=== PATIENT | male | born 1950 | race Caucasian/White ===

== ENCOUNTER → 2016-11-12 | Outpatient (CLI) | payer MEDICARE ==
[~2016-11-12] MED LIST: ALBU2.5V4 IH; AMBIEN; ASP81TEC PO; AZIT500T2 PO; BENZ-13 PO; CLOP75TA PO; CLOP75TA28; CYCL5TAB PO; DABI150C2 PO; DLT240CCR PO; DOXY100C2 PO; NEBU1KIT3 MC; OMEP20CA12 PO; ONDA8TAB13 PO; PRD20T PO; PRV20T PO; QUIN40TA17 PO; TRAM-21 PO
--- NOTE | 2016-11-12 19:40 | Diagnostic Imaging Report ---
Three views of the left foot. INDICATION: Left foot pain. FINDINGS: There is no fracture, dislocation or radiopaque foreign body seen. There is flattening of the plantar arch. Bone alignment is satisfactory. Mild dorsal spurring at the talar head is noted. IMPRESSION: There is mild flattening of the plantar arch. No acute process. Dictated by: Dictated on workstation # [id number]
== END ==
LOC: RAD 14:51
PROVIDERS: ATTEND Nurse Practitioner
DX: M79.672 Pain in left foot (principal)
CPT/HCPCS: 73630

== ENCOUNTER → 2016-11-13 | Outpatient (CLI) | payer MEDICARE ==
--- NOTE | 2016-11-13 18:51 | Diagnostic Imaging Report ---
PROCEDURE: US Bilateral lower extremity arterial. TECHNIQUE: Multiple real-time grayscale images are obtained through both lower extremity arterial systems with color Doppler imaging and color Doppler spectral analysis. INDICATION: Leg pain. FINDINGS: The previous bilateral lower extremity arterial Doppler exam of 10/05/2015 noted a vphehmq-bp-lkvnwua bypass graft from right to left. There did appear to be high-grade stenosis in the distal superficial femoral artery on the left. On this exam, the distal superficial femoral artery is occluded. There is some blood flow to the left lower leg via collaterals however the arterial blood flow to left lower leg is severely diminished. There is arterial blood flow on the right. The blood flow on the right is diminished as monophasic waveforms are seen throughout the arterial system. However, there is no abrupt alteration of the velocities to suggest hemodynamically significant stenosis. IMPRESSION: 1. There is occlusion of the distal superficial femoral artery on the left. While there is some collateral blood flow to the left lower leg, the arterial blood flow to the left lower extremity is extremely diminished. 2. There is also diminished arterial blood flow to the right lower extremity but there is no sign of a hemodynamically significant stenosis on the right. Dictated by: Dictated on workstation # [id number]
== END ==
LOC: RAD 14:49
PROVIDERS: ATTEND Nurse Practitioner
DX: I70.213 Atherosclerosis of native arteries of extremities with intermittent claudication, bilateral legs (principal)
CPT/HCPCS: 93925

== ENCOUNTER → 2016-12-01 | Outpatient (CLI) | payer MEDICARE ==
[2016-12-01 11:18] LABS: MEAN PLATELET VOLUME 9.7 FL (7.4-10.4); RED BLOOD COUNT 4.45 10^6/uL (4.35-5.85); RED CELL DISTRIBUTION WIDTH 18.5 % (10.0-14.5); WHITE BLOOD COUNT 9.1 10^3/uL (4.3-11.0)
[2016-12-01 11:24] LABS: KETONES,URINE 1+ (NEGATIVE); LEUKOCYTE ESTERASE ,URINE 1+ (NEGATIVE); NITRITE,URINE NEGATIVE (NEGATIVE); PH,URINE 6 (5-9); PROTEIN,URINE 2+ (NEGATIVE); UROBILINOGEN,URINE 4 MG/DL (NORMAL)
[2016-12-01 11:37] LABS: ALANINE AMINOTRANSFERASE 16 U/L (0-55); ALBUMIN 3.7 G/DL (3.2-4.5); ANION GAP 11 MMOL/L (5-14); ASPARTATE AMINO TRANSFERASE 21 U/L (5-34); BILIRUBIN,TOTAL 0.6 MG/DL (0.1-1.0); BLOOD UREA NITROGEN 21 MG/DL (7-18); BUN/CREATININE RATIO 23; CALCIUM 8.9 MG/DL (8.5-10.1); CARBON DIOXIDE 23 MMOL/L (21-32); CHLORIDE 103 MMOL/L (98-107); CREATININE SERUM 0.92 MG/DL (0.60-1.30); GFR ESTIMATED > 60; GLUCOSE 103 MG/DL (70-105); POTASSIUM 4.5 MMOL/L (3.6-5.0); SODIUM 137 MMOL/L (135-145); TOTAL PROTEIN 6.8 G/DL (6.4-8.2)
[2016-12-01 11:42] LABS: BILIRUBIN,URINE 1+ (NEGATIVE); WBC,URINE 0-2 /HPF
[2016-12-01 11:43] LABS: HYALINE CASTS, URINE RARE /LPF; SQUAMOUS EPITHELIAL CELL,UR RARE /HPF
--- NOTE | 2016-12-01 11:54 | Diagnostic Imaging Report ---
INDICATION: Peripheral vascular disease. Preop. Comparison with 08/18/2016. FINDINGS: Obstructive interstitial lung disease again noted with right hilar scarring. No acute infiltrates or masses have developed. The heart is not enlarged. There is no evidence of pulmonary edema. Apical bullous changes are noted in the right upper lung. IMPRESSION: Rather severe obstructive bullous emphysematous disease. No acute changes have occurred. Dictated by: Dictated on workstation # [id number]
== END ==
LOC: CARD 10:52
PROVIDERS: ATTEND Thoracic Surgery (Cardiothoracic Vascular Surgery)
DX: Z01.810 Encounter for preprocedural cardiovascular examination (principal); Z01.811 Encounter for preprocedural respiratory examination; Z01.812 Encounter for preprocedural laboratory examination; I70.213 Atherosclerosis of native arteries of extremities with intermittent claudication, bilateral legs
CPT/HCPCS: 36415; 71020; 80053; 81000; 85027; 93005

== ENCOUNTER 2016-12-10 09:22 | Outpatient (RCR) | payer MEDICARE ==
[~2016-12-10 09:22] MED LIST changes: -CLOP75TA28
[2016-12-22] MEDS ORDERED: CLOP75TA28 (08:16)
== END 2017-01-14 09:09 | disposition home or self-care (01) ==
LOC: WOUNDCARE 09:22
PROVIDERS: ATTEND Surgery
DX: L97.522 Non-pressure chronic ulcer of other part of left foot with fat layer exposed (principal); L97.422 Non-pressure chronic ulcer of left heel and midfoot with fat layer exposed; I70.245 Atherosclerosis of native arteries of left leg with ulceration of other part of foot; I70.244 Atherosclerosis of native arteries of left leg with ulceration of heel and midfoot; G60.8 Other hereditary and idiopathic neuropathies
CPT/HCPCS: 99215

== ENCOUNTER 2016-12-22 07:45 | Emergency (ER) | payer MEDICARE ==
[~2016-12-22] VITALS: Ht 177.8 cm; Wt 60.8 kg
[2016-12-22 08:05] LABS: BASOPHILS % (AUTO) 0 % (0-10); EOSINOPHILS # (AUTO) 0.2 10^3/uL (0.0-0.3); EOSINOPHILS % (AUTO) 2 % (0-10); LYMPHOCYTES # (AUTO) 1.1 X 10^3 (1.0-4.0); LYMPHOCYTES % (AUTO) 11 % (12-44); MEAN CORPUSCULAR HEMOGLOBIN 25 PG (25-34); MEAN CORPUSCULAR HGB CONC 31 G/DL (32-36); MEAN CORPUSCULAR VOLUME 79 FL (80-99); MEAN PLATELET VOLUME 9.4 FL (7.4-10.4); MONOCYTES % (AUTO) 10 % (0-12); NEUTROPHILS # (AUTO) 7.5 X 10^3 (1.8-7.8); NEUTROPHILS % (AUTO) 77 % (42-75); PLATELET COUNT 325 10^3/uL (130-400); RED BLOOD COUNT 3.59 10^6/uL (4.35-5.85); RED CELL DISTRIBUTION WIDTH 18.9 % (10.0-14.5); WHITE BLOOD COUNT 9.8 10^3/uL (4.3-11.0)
--- NOTE | 2016-12-22 08:05 | ED General ---
General Stated Complaint: POST CATH BLEEDING Source of Information: Patient Exam Limitations: No Limitations History of Present Illness Time Seen by Provider: 07:48 Initial Comments Here with report of bleeding from his heart catheter site which apparently was catheter site to resolve blood clots to the left lower extremity. He has gangrene to the fourth and fifth toe related to blood clots in the left leg and they were trying to clear that. That was done last week on and Thursday. He apparently has a bypass in place between the legs as well. He has a central catheter site in the area of the suprapubic region that apparently bled quite a bit today. EMS reports up to 2 L of volume loss as estimated by the amount of blood in his bed and chair as well as on the floor. Bleeding controlled with direct pressure and remains controlled currently. Patient is pale but otherwise denies any complaints. He apparently was discharged from the hospital Thursday at [facility] due to his requested which reportedly was related to he was tired of being stuck so much. He is currently considering surgery to remove the fourth and fifth toes of the left foot as well as wound debridement now that his arterial flow is open to the left lower extremity. Denies fevers or vomiting. He did not have any problems until today related to the catheter procedure. Timing/Duration: 1 Hour, Resolved Prior to Arrival Severity: Moderate, Severe Associated Systoms: No Chest Pain, No Fever/Chills, No Nausea/Vomiting, No Shortness of Air, No Weakness Allergies and Home Medications Allergies Coded Allergies: No Known Drug Allergies (Unverified , 11/22/12) Home Medications Albuterol Sulfate 2.5 Mg/3 Ml Vial.neb, 2.5 MG IH Q4H PRN for SHORTNESS OF BREATH, #28 Ref 0 Prescribed by: AMBER NEGRO on 08/18/16 1239 Aspirin 81 Mg Tabec, 81 MG PO DAILY, (Reported) Benzonatate 100 Mg Capsule, 1-2 CAP PO Q8H PRN for COUGH, #30 Ref 1 Prescribed by: AMBER NEGRO on 08/18/16 1252 Clopidogrel Bisulfate 75 Mg Tablet, #30 (Reported) Dabigatran Etexilate Mesylate 150 Mg Capsule, 150 MG PO BID, (Reported) Diltiazem Hcl 240 Mg Cap.sr.24h, 240 MG PO DAILY, (Reported) Omeprazole 20 Mg Capsule.dr, 20 MG PO DAILY, (Reported) Ondansetron 8 Mg Tab.rapdis, 8 MG PO Q6H PRN for NAUSEA, #10 Ref 0 Prescribed by: AMBER NEGRO on 08/18/16 1252 Prednisone 20 Mg Tab, 40 MG PO DAILY, #10 Ref 0 Prescribed by: AMBER NEGRO on 08/18/16 1239 [Ambien] , (Reported) Constitutional: see HPI, No chills, No fever Respiratory: no symptoms reported Cardiovascular: no symptoms reported Gastrointestinal: No abdominal pain, No nausea, No vomiting Genitourinary: no symptoms reported Musculoskeletal: no symptoms reported Skin: see HPI, other (postop wound suprapubic region with bleeding controlled.) Psychiatric/Neurological: No Symptoms Reported Hematologic/Lymphatic: No Symptoms Reported All Other Systems Reviewed Negative Unless Noted: Yes Past Kwojnur-Vyuxed-Yubnlc Hx Patient Social History Alcohol Use: Occasionally Uses Recreational Drug Use: No Smoking Status: Current Everyday Smoker Type Used: Cigarettes Recent Hopitalizations: No Immunizations Up To Date Tetanus Booster (TDap): More than 5yrs Date of Pneumonia Vaccine: Jul 18, 2016 Surgeries HX Surgeries: Yes (LEFT CAROTID 2000/STENTS TO L LEG) Surgeries: Appendectomy, Gallbladder Respiratory Hx Respiratory Disorders: Yes (HX PNEUMONIA) Respiratory Disorders: Pneumonia, COPD Cardiovascular Hx Cardiac Disorders: Yes (LEFT CAROTID STENTING IN 1999) Neurological Hx Neurological Disorders: Yes Neurological Disorders: Stroke Reproductive System Hx Reproductive Disorders: No Genitourinary Hx Genitourinary Disorders: No Gastrointestinal Hx Gastrointestinal Disorders: Yes Gastrointestinal Disorders: Hiatal Hernia, Ulcer Musculoskeletal Hx Musculoskeletal Disorders: Yes Musculoskeletal Disorders: Fractures Endocrine Hx Endocrine Disorders: No HEENT HX ENT Disorders: Yes (rt facial drooping and slurred speech from previous CVA) Loss of Vision: Denies Hearing Impairment: Denies Cancer Hx Cancer: No Psychosocial Hx Psychiatric Problems: No Integumentary HX Skin/Integumentary Disorder: No Blood Transfusions Hx Blood Disorders: No Reviewed Nursing Assessment Reviewed/Agree w Nursing PMH: Yes Family Medical History Significant Family History: No Pertinent Family Hx Physical Exam Vital Signs Vital Sign - Last 12Hours 12/22/16 07:45 Temp 98.7 Pulse 100 Resp 18 Pulse Ox 98 O2 Delivery Nasal Cannula O2 Flow Rate 2.00 Capillary Refill : General Appearance: No Apparent Distress, WD/WN HEENT: PERRL/EOMI, Pharynx Normal Neck: Non Tender, Supple Respiratory: Lungs Clear, Normal Breath Sounds Cardiovascular: Regular Rate, Rhythm, No Murmur Gastrointestinal: Non Tender, Soft Back: Normal Inspection, No CVA Tenderness, No Vertebral Tenderness Extremity: Non Tender, No Calf Tenderness Neurologic/Psychiatric: Alert, Oriented x3 Skin: Warm/Dry, Other (suprapubic puncture site were catheter procedure was done with dressing in place. No persistent bleeding noted. Left foot fourth and fifth toes black and and lateral aspect of distal forefoot blackened as well. Left foot erythematous to above the level of the ankle. Distal pulses intact in bilateral lower extremities equal.) Progress/Results/Core Measures Results/Orders Lab Results Laboratory Tests Test 12/22/16 07:56 Range/Units White Blood Count 9.8 4.3-11.0 10^3/uL Red Blood Count 3.59 L 4.35-5.85 10^6/uL Hemoglobin 8.8 L 13.3-17.7 G/DL Hematocrit 28 L 40-54 % Mean Corpuscular Volume 79 L 80-99 FL Mean Corpuscular Hemoglobin 25 25-34 PG Mean Corpuscular Hemoglobin Concent 31 L 32-36 G/DL Red Cell Distribution Width 18.9 H 10.0-14.5 % Platelet Count 325 130-400 10^3/uL Mean Platelet Volume 9.4 7.4-10.4 FL Neutrophils (%) (Auto) 77 H 42-75 % Lymphocytes (%) (Auto) 11 L 12-44 % Monocytes (%) (Auto) 10 0-12 % Eosinophils (%) (Auto) 2 0-10 % Basophils (%) (Auto) 0 0-10 % Neutrophils # (Auto) 7.5 1.8-7.8 X 10^3 Lymphocytes # (Auto) 1.1 1.0-4.0 X 10^3 Monocytes # (Auto) 1.0 0.0-1.0 X 10^3 Eosinophils # (Auto) 0.2 0.0-0.3 10^3/uL Basophils # (Auto) 0.0 0.0-0.1 10^3/uL Sodium Level 141 135-145 MMOL/L Potassium Level 3.8 3.6-5.0 MMOL/L Chloride Level 106 98-107 MMOL/L Carbon Dioxide Level 24 21-32 MMOL/L Anion Gap 11 5-14 MMOL/L Blood Urea Nitrogen 22 H 7-18 MG/DL Creatinine 0.75 0.60-1.30 MG/DL Estimat Glomerular Filtration Rate > 60 BUN/Creatinine Ratio 29 Glucose Level 107 H 70-105 MG/DL Calcium Level 8.9 8.5-10.1 MG/DL Total Bilirubin 0.5 0.1-1.0 MG/DL Aspartate Amino Transf (AST/SGOT) 48 H 5-34 U/L Alanine Aminotransferase (ALT/SGPT) 30 0-55 U/L Alkaline Phosphatase 72 40-136 U/L Total Protein 6.3 L 6.4-8.2 G/DL Albumin 3.0 L 3.2-4.5 G/DL My Orders Orders - VÍCTOR RAMON MD Cbc With Automated Diff (12/22/16 07:58) Comprehensive Metabolic Panel (12/22/16 07:58) Type And Screen (12/22/16 07:58) Vital Signs/I&O Vital Sign - Last 12Hours 12/22/16 07:45 Temp 98.7 Pulse 100 Resp 18 B/P (MAP) Pulse Ox 98 O2 Delivery Nasal Cannula O2 Flow Rate 2.00 Progress Note : Progress Note Seen and evaluated. IV by EMS. Labs ordered. Monitor patient. 0813: I did discuss the case with Dr. De Guzman at [facility] in [place], [place]. He wants the patient to return there. Patient has bypass between the legs and had recent instrumentation to clear blood clots in the left leg. There is no vascular surgery available here. Patient will need to be transferred to [place] for further evaluation of the bleeding graft. I did discuss this with the patient and family who agree. Due to significant amount of blood loss this morning and the potential for rebleeding, patient will need to go by EMS. 0910 : Report given to EMS by me. To [facility] via [facility]. Departure Impression Impression: Primary Impression: Postoperative hemorrhage from incision Additional Impression: Gangrene Disposition: XFER SHT-TRM HOSP Condition: Stable Transfer Transfer Time: 08:20 Transfer Facility: [place], [place]. Dr. De Guzman accepting Method of Transfer: EMS Departure-Patient Inst. Referrals: [facility] (PCP/Family) Primary Care Physician VÍCTOR RAMON MD Dec 22, 2016 08:05
[2016-12-22] MEDS ORDERED: CLOP75TA28 (08:16)
[2016-12-22 08:24] LABS: ALANINE AMINOTRANSFERASE 30 U/L (0-55); ANION GAP 11 MMOL/L (5-14); ASPARTATE AMINO TRANSFERASE 48 U/L (5-34); BILIRUBIN,TOTAL 0.5 MG/DL (0.1-1.0); BLOOD UREA NITROGEN 22 MG/DL (7-18); BUN/CREATININE RATIO 29; CALCIUM 8.9 MG/DL (8.5-10.1); CARBON DIOXIDE 24 MMOL/L (21-32); CHLORIDE 106 MMOL/L (98-107); CREATININE SERUM 0.75 MG/DL (0.60-1.30); GFR ESTIMATED > 60; GLUCOSE 107 MG/DL (70-105); POTASSIUM 3.8 MMOL/L (3.6-5.0); SODIUM 141 MMOL/L (135-145); TOTAL PROTEIN 6.3 G/DL (6.4-8.2)
[2016-12-22 09:20] VITALS: BP 145/91
== END 2016-12-22 09:30 | disposition short-term general hospital (02) ==
LOC: EDUNIT# 07:45 → ER 07:46
DX: I97.618 Postprocedural hemorrhage of a circulatory system organ or structure following other circulatory system procedure (principal); I96 Gangrene, not elsewhere classified; R44.9 Unspecified symptoms and signs involving general sensations and perceptions; I69.992 Facial weakness following unspecified cerebrovascular disease; I69.998 Other sequelae following unspecified cerebrovascular disease; F17.210 Nicotine dependence, cigarettes, uncomplicated; Z79.82 Long term (current) use of aspirin; Z79.899 Other long term (current) drug therapy; Z79.02 Long term (current) use of antithrombotics/antiplatelets; Z95.828 Presence of other vascular implants and grafts
CPT/HCPCS: 36415; 80053; 85025; 86850; 86900; 86901; 99283

== ENCOUNTER → 2017-01-23 | Outpatient (CLI) | payer MEDICARE ==
[~2017-01-23] MED LIST changes: +CLOP75TA28
[2017-01-23 15:18] LABS: MEAN PLATELET VOLUME 10.6 FL (7.4-10.4); RED BLOOD COUNT 4.83 10^6/uL (4.35-5.85); RED CELL DISTRIBUTION WIDTH 19.5 % (10.0-14.5); WHITE BLOOD COUNT 6.7 10^3/uL (4.3-11.0)
[2017-01-23 15:31] LABS: ALBUMIN 3.8 G/DL (3.2-4.5); ANION GAP 8 MMOL/L (5-14); BLOOD UREA NITROGEN 22 MG/DL (7-18); BUN/CREATININE RATIO 32; CALCIUM 9.4 MG/DL (8.5-10.1); CARBON DIOXIDE 27 MMOL/L (21-32); CHLORIDE 107 MMOL/L (98-107); CREATININE SERUM 0.69 MG/DL (0.60-1.30); GFR ESTIMATED > 60; GLUCOSE 97 MG/DL (70-105); PHOSPHORUS 3.6 MG/DL (2.3-4.7); SODIUM 142 MMOL/L (135-145); hs C REACTIVE PROTEIN 0.76 MG/DL (0.00-0.50)
== END ==
LOC: HH 14:45
PROVIDERS: ATTEND Internal Medicine
DX: M86.672 Other chronic osteomyelitis, left ankle and foot (principal); J44.9 Chronic obstructive pulmonary disease, unspecified; I10 Essential (primary) hypertension; I49.9 Cardiac arrhythmia, unspecified
CPT/HCPCS: 80069; 85027; 85652; 86141

== ENCOUNTER → 2017-01-30 | Outpatient (CLI) | payer MEDICARE ==
[2017-01-30 16:48] LABS: BASOPHILS % (AUTO) 0 % (0-10); EOSINOPHILS # (AUTO) 0.1 10^3/uL (0.0-0.3); EOSINOPHILS % (AUTO) 2 % (0-10); LYMPHOCYTES # (AUTO) 1.6 X 10^3 (1.0-4.0); LYMPHOCYTES % (AUTO) 22 % (12-44); MEAN CORPUSCULAR HEMOGLOBIN 26 PG (25-34); MEAN CORPUSCULAR HGB CONC 31 G/DL (32-36); MEAN CORPUSCULAR VOLUME 83 FL (80-99); MEAN PLATELET VOLUME 11.2 FL (7.4-10.4); MONOCYTES # (AUTO) 0.9 X 10^3 (0.0-1.0); MONOCYTES % (AUTO) 13 % (0-12); NEUTROPHILS # (AUTO) 4.6 X 10^3 (1.8-7.8); NEUTROPHILS % (AUTO) 63 % (42-75); PLATELET COUNT 220 10^3/uL (130-400); RED BLOOD COUNT 4.54 10^6/uL (4.35-5.85); RED CELL DISTRIBUTION WIDTH 19.5 % (10.0-14.5); WHITE BLOOD COUNT 7.3 10^3/uL (4.3-11.0)
[2017-01-30 17:16] LABS: ERYTHROCYTE SEDIMENTATION RATE 7 MM/HR (0-30)
[2017-01-30 17:18] LABS: ALBUMIN 3.7 G/DL (3.2-4.5); ANION GAP 7 MMOL/L (5-14); BLOOD UREA NITROGEN 22 MG/DL (7-18); BUN/CREATININE RATIO 33; CALCIUM 9.3 MG/DL (8.5-10.1); CARBON DIOXIDE 28 MMOL/L (21-32); CHLORIDE 105 MMOL/L (98-107); CREATININE SERUM 0.67 MG/DL (0.60-1.30); GFR ESTIMATED > 60; GLUCOSE 84 MG/DL (70-105); PHOSPHORUS 3.9 MG/DL (2.3-4.7); SODIUM 140 MMOL/L (135-145); hs C REACTIVE PROTEIN 0.06 MG/DL (0.00-0.50)
== END ==
LOC: HH 15:07
PROVIDERS: ATTEND Internal Medicine
DX: M86.672 Other chronic osteomyelitis, left ankle and foot (principal); J44.9 Chronic obstructive pulmonary disease, unspecified; I10 Essential (primary) hypertension; I49.9 Cardiac arrhythmia, unspecified
CPT/HCPCS: 80069; 85025; 85652; 86141

== ENCOUNTER → 2017-02-06 | Outpatient (CLI) | payer MEDICARE ==
[2017-02-06 15:33] LABS: MEAN PLATELET VOLUME 10.8 FL (7.4-10.4); RED BLOOD COUNT 4.33 10^6/uL (4.35-5.85); RED CELL DISTRIBUTION WIDTH 19.5 % (10.0-14.5); WHITE BLOOD COUNT 5.7 10^3/uL (4.3-11.0)
[2017-02-06 15:48] LABS: ALBUMIN 3.5 G/DL (3.2-4.5); ANION GAP 10 MMOL/L (5-14); BLOOD UREA NITROGEN 19 MG/DL (7-18); BUN/CREATININE RATIO 28; CALCIUM 9.1 MG/DL (8.5-10.1); CARBON DIOXIDE 26 MMOL/L (21-32); CHLORIDE 106 MMOL/L (98-107); CREATININE SERUM 0.68 MG/DL (0.60-1.30); GFR ESTIMATED > 60; GLUCOSE 81 MG/DL (70-105); PHOSPHORUS 3.4 MG/DL (2.3-4.7); POTASSIUM 3.6 MMOL/L (3.6-5.0); SODIUM 142 MMOL/L (135-145); hs C REACTIVE PROTEIN 0.65 MG/DL (0.00-0.50)
== END ==
LOC: HH 15:28
PROVIDERS: ATTEND Internal Medicine
DX: M86.672 Other chronic osteomyelitis, left ankle and foot (principal); J44.9 Chronic obstructive pulmonary disease, unspecified; I10 Essential (primary) hypertension; I49.9 Cardiac arrhythmia, unspecified
CPT/HCPCS: 80069; 85027; 85652; 86141

== ENCOUNTER 2017-04-03 09:28 | Outpatient (RCR) | payer MEDICARE | END 2017-04-13 16:00 | disposition home or self-care (01) | LOC: WOUNDCARE 09:28 | PROVIDERS: ATTEND Surgery | DX: L97.522 Non-pressure chronic ulcer of other part of left foot with fat layer exposed (principal); L97.422 Non-pressure chronic ulcer of left heel and midfoot with fat layer exposed; I70.245 Atherosclerosis of native arteries of left leg with ulceration of other part of foot; I70.244 Atherosclerosis of native arteries of left leg with ulceration of heel and midfoot | CPT/HCPCS: 11042; 11043; 87070; 87075; 87205 ==

== ENCOUNTER → 2017-04-24 | Outpatient (CLI) | payer MEDICARE | LOC: WOUNDCARE 09:24 | PROVIDERS: ATTEND Surgery | DX: L97.522 Non-pressure chronic ulcer of other part of left foot with fat layer exposed (principal); L97.422 Non-pressure chronic ulcer of left heel and midfoot with fat layer exposed; I70.244 Atherosclerosis of native arteries of left leg with ulceration of heel and midfoot; T65.222A Toxic effect of tobacco cigarettes, intentional self-harm, initial encounter | CPT/HCPCS: 11042 ==

== ENCOUNTER → 2017-05-15 | Outpatient (CLI) | payer MEDICARE | LOC: WOUNDCARE 10:28 | PROVIDERS: ATTEND Surgery | DX: L97.522 Non-pressure chronic ulcer of other part of left foot with fat layer exposed (principal); L97.422 Non-pressure chronic ulcer of left heel and midfoot with fat layer exposed; I70.244 Atherosclerosis of native arteries of left leg with ulceration of heel and midfoot; T65.222A Toxic effect of tobacco cigarettes, intentional self-harm, initial encounter | CPT/HCPCS: 11042 ==

== ENCOUNTER → 2017-05-22 | Outpatient (CLI) | payer MEDICARE ==
[~2017-05-22] MED LIST changes: +ALBU18HF2 IH; +ASPI-983 PO; +BUDE10.2 IH; +CYCL10TA9 PO; +DABI150C5 PO; +DILT240C87 PO; +DOXY100C42 PO; +GABA-488 PO; +HYDR-3816 PO; +MORP-34 PO; +ZOLP10TA5 PO
== END ==
LOC: WOUNDCARE 05-21 12:54
PROVIDERS: ATTEND Surgery
DX: L97.522 Non-pressure chronic ulcer of other part of left foot with fat layer exposed (principal); L97.422 Non-pressure chronic ulcer of left heel and midfoot with fat layer exposed; I70.244 Atherosclerosis of native arteries of left leg with ulceration of heel and midfoot; T65.222A Toxic effect of tobacco cigarettes, intentional self-harm, initial encounter
CPT/HCPCS: 11042; 87070; 87075; 87077; 87186; 87205

== ENCOUNTER → 2017-06-10 | Outpatient (CLI) | payer MEDICARE ==
--- NOTE | 2017-06-10 11:31 | Diagnostic Imaging Report ---
INDICATION: History of amputation of the fourth and fifth digits of the left foot, now with ulceration near the heel. TECHNIQUE: AP, oblique, and lateral views of the left foot were obtained. FINDINGS: The patient has had amputation of the fourth and fifth digits at the level of the distal metatarsal. There is no erosive bony lesion in this location to suggest osteomyelitis. There is no erosive bony lesion in the calcaneus. There is no other abnormal finding. IMPRESSION: Postop changes status post transmetatarsal amputation of the fourth and fifth digits. No overt bony destructive lesion is seen. Dictated by: Dictated on workstation # [id number]
== END ==
LOC: RAD 10:39
PROVIDERS: ATTEND Surgery
DX: L97.522 Non-pressure chronic ulcer of other part of left foot with fat layer exposed (principal); L97.422 Non-pressure chronic ulcer of left heel and midfoot with fat layer exposed; I70.244 Atherosclerosis of native arteries of left leg with ulceration of heel and midfoot; F17.210 Nicotine dependence, cigarettes, uncomplicated; Z89.422 Acquired absence of other left toe(s)
CPT/HCPCS: 73630

== ENCOUNTER → 2017-06-12 | Outpatient (CLI) | payer MEDICARE ==
[~2017-06-12] MED LIST changes: -ALBU18HF2 IH; -ASPI-983 PO; -BUDE10.2 IH; -CYCL10TA9 PO; -DABI150C5 PO; -DILT240C87 PO; -DOXY100C42 PO; -GABA-488 PO; -HYDR-3816 PO; -MORP-34 PO; -ZOLP10TA5 PO
== END ==
LOC: WOUNDCARE 09:57
PROVIDERS: ATTEND Surgery
DX: L97.522 Non-pressure chronic ulcer of other part of left foot with fat layer exposed (principal); L97.422 Non-pressure chronic ulcer of left heel and midfoot with fat layer exposed; I70.244 Atherosclerosis of native arteries of left leg with ulceration of heel and midfoot; T65.222A Toxic effect of tobacco cigarettes, intentional self-harm, initial encounter
CPT/HCPCS: 11042

== ENCOUNTER → 2017-06-19 | Outpatient (CLI) | payer MEDICARE ==
[2017-06-19 11:06] LABS: ANION GAP 9 MMOL/L (5-14); BLOOD UREA NITROGEN 19 MG/DL (7-18); BUN/CREATININE RATIO 22; CALCIUM 9.6 MG/DL (8.5-10.1); CARBON DIOXIDE 28 MMOL/L (21-32); CHLORIDE 101 MMOL/L (98-107); CREATININE SERUM 0.87 MG/DL (0.60-1.30); GFR ESTIMATED > 60; GLUCOSE 96 MG/DL (70-105); POTASSIUM 4.2 MMOL/L (3.6-5.0); SODIUM 138 MMOL/L (135-145)
== END ==
LOC: LAB 10:40
PROVIDERS: ATTEND Internal Medicine
DX: R91.1 Solitary pulmonary nodule (principal)
CPT/HCPCS: 36415; 80048

== ENCOUNTER → 2017-06-22 | Outpatient (CLI) | payer MEDICARE ==
[~2017-06-22] MED LIST changes: +IOHEXOL 350 MG/ML 100 ML (OMNIPAQUE 350) VIAL IV ONE; +NS 100 ML (IVPB) BAG IV ONE
--- NOTE | 2017-06-22 13:02 | Diagnostic Imaging Report ---
PROCEDURE: CT chest with and without contrast. TECHNIQUE: Multiple contiguous axial images were obtained through the chest before and after administration of intravenous contrast. INDICATION: Lung nodule. 75 mL of Omnipaque 350 is administered intravenously. FINDINGS: The lungs demonstrate emphysema changes with bulla seen in the upper lobes and in the right lung base anteriorly, and inferior lingula. There is a 5 mm nodule seen in the right lower lobe stable from 06/2015 exam compatible with scarring. Other areas of scarring in the lung bases also noted. There is no significant new consolidation, mass or suspicious nodule. There is fibrotic changes and chronic atelectasis involving the right middle lobe. This is also demonstrating minimal change from 2015. This segment demonstrates mild bronchiectasis in the segmental branches to the right middle lobe. No pleural or pericardial effusion. The heart size is normal. The thoracic aorta is normal in caliber. No significant mediastinal, hilar or axillary lymphadenopathy is seen. Sections in the upper abdomen demonstrate multiple hepatic cysts. There is hyperdense material probably related to sutures or possibly atherosclerotic calcifications in the upper abdomen. Correlate with surgical history. The osseous structures demonstrate degenerative changes in the thoracic spine. IMPRESSION: 1. Advanced emphysema with prominent bulla in the upper lobes and in the anterior right lung base. 2. Unchanged chronic atelectasis and fibrotic changes in the right middle lobe. Dictated by: Dictated on workstation # [id number]
== END ==
LOC: RAD 08:14
PROVIDERS: ATTEND Internal Medicine
DX: J43.9 Emphysema, unspecified (principal); J84.10 Pulmonary fibrosis, unspecified
CPT/HCPCS: 71270

== ENCOUNTER → 2017-06-26 | Outpatient (CLI) | payer MEDICARE ==
[~2017-06-26] MED LIST changes: -IOHEXOL 350 MG/ML 100 ML (OMNIPAQUE 350) VIAL IV ONE; -NS 100 ML (IVPB) BAG IV ONE
== END ==
LOC: WOUNDCARE 09:49
PROVIDERS: ATTEND Nurse Practitioner
DX: L97.522 Non-pressure chronic ulcer of other part of left foot with fat layer exposed (principal); L97.422 Non-pressure chronic ulcer of left heel and midfoot with fat layer exposed; I70.244 Atherosclerosis of native arteries of left leg with ulceration of heel and midfoot; T65.222A Toxic effect of tobacco cigarettes, intentional self-harm, initial encounter
CPT/HCPCS: 11042; 87070; 87075; 87077; 87186; 87205

== ENCOUNTER → 2017-07-01 | Outpatient (CLI) | payer MEDICARE | LOC: WOUNDCARE 14:22 | PROVIDERS: ATTEND Surgery | DX: I70.244 Atherosclerosis of native arteries of left leg with ulceration of heel and midfoot (principal); L97.522 Non-pressure chronic ulcer of other part of left foot with fat layer exposed; L97.422 Non-pressure chronic ulcer of left heel and midfoot with fat layer exposed; T65.222A Toxic effect of tobacco cigarettes, intentional self-harm, initial encounter | CPT/HCPCS: 11042 ==

== ENCOUNTER 2017-07-04 15:48 | Inpatient (IN) | payer MEDICARE ==
[~2017-07-04] VITALS: Ht 170.2 cm; Wt 56.2 kg
--- NOTE | 2017-07-04 15:57 | ED Lower Extremity ---
General Stated Complaint: FALL Source: patient Exam Limitations: no limitations History of Present Illness Time seen by provider: 15:55 Initial Comments To ER per EMS from home with reports of right hip pain after a fall. Patient states that he became entangled in a lamp cord on his floor which caused him to trip and fall. This occurred during the night. He summoned his adult children to come help get him up. However, pain persists and he's been unable to stand or bear any weight on this leg because of the pain. He is on Pradaxa for history of atrial fibrillation. He has COPD and wears oxygen at 3 L per nasal cannula at all times. He also is currently seeing Dr. Yu from wound care for a wound on his left heel. He denies hitting his head or any other complaints of pain. Onset: this morning Severity: moderate Pain/Injury Location: right hip Method of Injury: fell Modifying Factors: Worse With Movement Allergies and Home Medications Allergies Coded Allergies: No Known Drug Allergies (Unverified , 11/22/12) Home Medications Albuterol Sulfate 2.5 Mg/3 Ml Vial.neb, 2.5 MG IH Q4H PRN for SHORTNESS OF BREATH, #28 Ref 0 Prescribed by: AMBER NEGRO on 08/18/16 1239 Aspirin 81 Mg Tabec, 81 MG PO DAILY, (Reported) Benzonatate 100 Mg Capsule, 1-2 CAP PO Q8H PRN for COUGH, #30 Ref 1 Prescribed by: AMBER NEGRO on 08/18/16 1252 Clopidogrel Bisulfate 75 Mg Tablet, #30 (Reported) Dabigatran Etexilate Mesylate 150 Mg Capsule, 150 MG PO BID, (Reported) Diltiazem Hcl 240 Mg Cap.sr.24h, 240 MG PO DAILY, (Reported) Omeprazole 20 Mg Capsule.dr, 20 MG PO DAILY, (Reported) Ondansetron 8 Mg Tab.rapdis, 8 MG PO Q6H PRN for NAUSEA, #10 Ref 0 Prescribed by: AMBER NEGRO on 08/18/16 1252 Prednisone 20 Mg Tab, 40 MG PO DAILY, #10 Ref 0 Prescribed by: AMBER NEGRO on 08/18/16 1239 [Ambien] , (Reported) Constitutional: see HPI EENTM: see HPI Respiratory: no symptoms reported Cardiovascular: no symptoms reported Genitourinary: no symptoms reported Musculoskeletal: see HPI Skin: no symptoms reported Psychiatric/Neurological: No Symptoms Reported Past Qmcytrg-Axvgvh-Tvyabl Hx Patient Social History Alcohol Beverage of Choice: [place] Type Used: Cigarettes Recent Hopitalizations: No Immunizations Up To Date Tetanus Booster (TDap): More than 5yrs Date of Pneumonia Vaccine: Jul 18, 2016 Date of Influenza Vaccine: Jun 16, 2016 Surgeries Surgeries: Appendectomy Respiratory Respiratory Disorders: Pneumonia, COPD Neurological Neurological Disorders: Stroke Reproductive System Hx Reproductive Disorders: No Gastrointestinal Gastrointestinal Disorders: Hiatal Hernia, Ulcer Musculoskeletal Musculoskeletal Disorders: Fractures HEENT Loss of Vision: Denies Hearing Impairment: Denies Family Medical History Significant Family History: No Pertinent Family Hx Physical Exam Vital Signs Vital Sign - Last 12Hours 07/04/17 15:48 Temp 97.5 Pulse 70 Resp 16 B/P (MAP) 139/94 Pulse Ox 95 O2 Delivery Nasal Cannula Capillary Refill : General Appearance: WD/WN, no apparent distress HEENT: PERRL/EOMI, normal ENT inspection Neck: non-tender, full range of motion Cardiovascular: regular rate, rhythm, no murmur Respiratory: normal breath sounds, no respiratory distress, no accessory muscle use Gastrointestinal: normal bowel sounds, non tender, soft Hips: right hip pain, right hip soft tissue tenderness Legs: bilateral leg non-tender, bilateral leg normal inspection, bilateral leg normal range of motion Knees: bilateral knee non-tender, bilateral knee normal inspection, bilateral knee normal range of motion Ankles: bilateral ankle non-tender, bilateral ankle normal inspection, bilateral ankle normal range of motion Feet: bilateral foot non-tender, bilateral foot normal inspection, bilateral foot normal range of motion, bilateral foot other (there is a bandage in place around the left foot. There is poor blood flow to both feet. I am unable to palpate a dorsalis pedis pulse on the right but I am able to Doppler blood flow) Neurologic/Psychiatric: alert, normal mood/affect, oriented x 3 Skin: normal color, warm/dry Progress/Results/Core Measures Results/Orders Lab Results Laboratory Tests Test 07/04/17 16:00 Range/Units White Blood Count 10.4 4.3-11.0 10^3/uL Red Blood Count 4.53 4.35-5.85 10^6/uL Hemoglobin 12.6 L 13.3-17.7 G/DL Hematocrit 39 L 40-54 % Mean Corpuscular Volume 86 80-99 FL Mean Corpuscular Hemoglobin 28 25-34 PG Mean Corpuscular Hemoglobin Concent 32 32-36 G/DL Red Cell Distribution Width 15.9 H 10.0-14.5 % Platelet Count 270 130-400 10^3/uL Mean Platelet Volume 10.2 7.4-10.4 FL Neutrophils (%) (Auto) 82 H 42-75 % Lymphocytes (%) (Auto) 8 L 12-44 % Monocytes (%) (Auto) 8 0-12 % Eosinophils (%) (Auto) 1 0-10 % Basophils (%) (Auto) 0 0-10 % Neutrophils # (Auto) 8.6 H 1.8-7.8 X 10^3 Lymphocytes # (Auto) 0.9 L 1.0-4.0 X 10^3 Monocytes # (Auto) 0.9 0.0-1.0 X 10^3 Eosinophils # (Auto) 0.1 0.0-0.3 10^3/uL Basophils # (Auto) 0.0 0.0-0.1 10^3/uL Sodium Level 137 135-145 MMOL/L Potassium Level 4.2 3.6-5.0 MMOL/L Chloride Level 102 98-107 MMOL/L Carbon Dioxide Level 26 21-32 MMOL/L Anion Gap 9 5-14 MMOL/L Blood Urea Nitrogen 23 H 7-18 MG/DL Creatinine 0.72 0.60-1.30 MG/DL Estimat Glomerular Filtration Rate > 60 BUN/Creatinine Ratio 32 Glucose Level 97 70-105 MG/DL Calcium Level 9.8 8.5-10.1 MG/DL Total Bilirubin 0.7 0.1-1.0 MG/DL Aspartate Amino Transf (AST/SGOT) 29 5-34 U/L Alanine Aminotransferase (ALT/SGPT) 36 0-55 U/L Alkaline Phosphatase 118 40-136 U/L Total Protein 7.5 6.4-8.2 GM/DL Albumin 3.8 3.2-4.5 GM/DL My Orders Orders - TREV FRAZIER APRN Chest 1 View, Ap/Pa Only (07/04/17 15:54) Ekg Tracing (07/04/17 15:54) Cbc With Automated Diff (07/04/17 15:54) Comprehensive Metabolic Panel (07/04/17 15:54) Ua Culture If Indicated (07/04/17 15:54) Saline Lock/Iv-Start (07/04/17 15:54) Morphine Injection (Morphine Injection (07/04/17 16:00) Pelvis With Right Hip 2-3views (07/04/17 15:54) Medications Given in ED Current Medications Medications Dose Ordered Sig/Guillermo Route Start Time Stop Time Status Last Admin Dose Admin Morphine Sulfate 6 mg ONCE ONCE IVP 07/04/17 16:00 07/04/17 16:01 DC 07/04/17 16:05 6 MG Vital Signs/I&O Vital Sign - Last 12Hours 07/04/17 07/04/17 15:48 16:05 Temp 97.5 97.5 Pulse 70 Resp 16 B/P (MAP) 139/94 Pulse Ox 95 O2 Delivery Nasal Cannula Departure Communication (Admissions) Time/Spoke to Admitting Phy: 17:33 Communication I discussed the case with Dr. Cuellar who is on-call for orthopedic surgery. We 'll admit the patient to family medicine for surgical clearance due to his comorbidities including GERD, peripheral arterial disease, COPD, history of atrial fibrillation. Time/Spoke to Consulting Phy: 17:34 Communication/Consulting Dr. Shell agrees to admit Progress Notes 1752-patient's family is concerned because he was taken off of his Pradaxa briefly in the past for an other unrelated surgery and had a stroke shortly thereafter. They state that he had to be on a heparin drip. I did discuss this with Dr. Shell and we will start a heparin drip per the ACS protocol which is the slightly lower dose than full heparin protocol. Impression Impression: Primary Impression: Intertrochanteric fracture of right hip Disposition: ADMITTED INPATIENT Condition: Stable Admissions Decision to Admit Reason: Admit from ER (General) Decision to Admit/Date: Jul 04, 2017 Time/Decision to Admit Time: 17:34 Departure-Patient Inst. Referrals: JEWELL ALBRECHT MD (PCP/Family) Primary Care Physician TREV FRAZIER APRN Jul 04, 2017 15:57
[2017-07-04] MEDS ORDERED: morphine INJ 10 MG/ML 1ML (SYR OR VIAL) IVP ONE (16:00)
[2017-07-04 16:07] LABS: BASOPHILS % (AUTO) 0 % (0-10); EOSINOPHILS # (AUTO) 0.1 10^3/uL (0.0-0.3); EOSINOPHILS % (AUTO) 1 % (0-10); LYMPHOCYTES # (AUTO) 0.9 X 10^3 (1.0-4.0); LYMPHOCYTES % (AUTO) 8 % (12-44); MEAN CORPUSCULAR HEMOGLOBIN 28 PG (25-34); MEAN CORPUSCULAR HGB CONC 32 G/DL (32-36); MEAN CORPUSCULAR VOLUME 86 FL (80-99); MEAN PLATELET VOLUME 10.2 FL (7.4-10.4); MONOCYTES # (AUTO) 0.9 X 10^3 (0.0-1.0); MONOCYTES % (AUTO) 8 % (0-12); NEUTROPHILS # (AUTO) 8.6 X 10^3 (1.8-7.8); NEUTROPHILS % (AUTO) 82 % (42-75); PLATELET COUNT 270 10^3/uL (130-400); RED BLOOD COUNT 4.53 10^6/uL (4.35-5.85); RED CELL DISTRIBUTION WIDTH 15.9 % (10.0-14.5); WHITE BLOOD COUNT 10.4 10^3/uL (4.3-11.0)
[2017-07-04 16:34] LABS: ALANINE AMINOTRANSFERASE 36 U/L (0-55); ALBUMIN 3.8 GM/DL (3.2-4.5); ANION GAP 9 MMOL/L (5-14); ASPARTATE AMINO TRANSFERASE 29 U/L (5-34); BILIRUBIN,TOTAL 0.7 MG/DL (0.1-1.0); BLOOD UREA NITROGEN 23 MG/DL (7-18); BUN/CREATININE RATIO 32; CALCIUM 9.8 MG/DL (8.5-10.1); CARBON DIOXIDE 26 MMOL/L (21-32); CHLORIDE 102 MMOL/L (98-107); CREATININE SERUM 0.72 MG/DL (0.60-1.30); GFR ESTIMATED > 60; GLUCOSE 97 MG/DL (70-105); POTASSIUM 4.2 MMOL/L (3.6-5.0); SODIUM 137 MMOL/L (135-145); TOTAL PROTEIN 7.5 GM/DL (6.4-8.2)
--- NOTE | 2017-07-04 16:59 | Diagnostic Imaging Report ---
INDICATION: Fall. COMPARISON: 12/01/2016. EXAMINATION: Two views of the chest were obtained. FINDINGS: Heart size is normal. The pulmonary vessels appear unremarkable. There is no pneumothorax or pleural fluid suspected. Chronic COPD findings with bullous change and some coarse right perihilar scarring appear fairly similar to the prior exam. No new pulmonary parenchymal abnormality is suspected. There are subacute or old healing fractures of the lateral left seventh and eighth ribs, new from November. IMPRESSION: There are subacute healing lateral left seventh and eighth rib fractures, new from November. Chronic findings in the chest are similar to the prior study. No acute or new cardiopulmonary abnormality is suspected. Dictated by: Dictated on workstation # [id number]
--- NOTE | 2017-07-04 17:03 | Diagnostic Imaging Report ---
INDICATION: Fall. COMPARISON: None. EXAMINATION: AP view of the pelvis and two views of the right hip were obtained. FINDINGS: There is a nondisplaced intertrochanteric fracture of the proximal right femur. Alignment at the hip joints appears preserved. The left hip appears unremarkable. The sacroiliac joints appear unremarkable. Vascular calcifications are demonstrated. Long stent is seen within the right superficial femoral artery. IMPRESSION: Nondisplaced intra-articular fracture of the proximal right femur. Report was called to Dr. Mariano Holloway in the [facility] ER at 5:02 p.m., by january. Dictated by: Dictated on workstation # [id number]
[2017-07-04] MEDS ORDERED: HEParin 1000 UNIT/ML (10ML VIAL) FOR BOLUS IV ONE (17:53)
[2017-07-04] MEDS ORDERED: HEParin DRIP 25000 UNIT/500ML 500 ML IV ONE (17:53)
--- OUTSIDE RECORDS SUMMARY | 2017-07-04 18:27 | XMS REPORT ---
Author Author RICKY CHA Organization [facility] Address [address] [place] [address] Care Team Providers Care Writing Manager Name Role Phone RICKY CHA Unavailable PROBLEMS Type Condition ICD9-CM Code [id number] Code Onset Dates Condition Status SNOMED Code Problem PVD (peripheral vascular disease) I73.9 Active 397001630 Problem Chronic obstructive pulmonary disease, unspecified J44.9 Active 47813313 Problem Panlobular emphysema J43.1 Active 6087486 Problem COPD (chronic obstructive pulmonary disease) J44.9 Active 00130579 Problem Pulmonary nodule R91.1 Active 435648032 Problem 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 Active 254840851 Problem Cerebrovascular accident (CVA), unspecified I63.9 Active 757535056 Problem Neuropathy G62.9 Active 487729406 Problem Chronic multifocal osteomyelitis, unspecified ankle and foot M86.379 Active 478157146 ALLERGIES No Known Allergies SOCIAL HISTORY Never Assessed PLAN OF CARE Activity Details Follow Up prn Reason: VITAL SIGNS Height 69 in 2016-11-23 Temperature 98.6 degrees Fahrenheit 2016-11-23 Heart Rate 88 bpm 2016-11-23 Respiratory Rate 22 2016-11-23 Blood pressure systolic 132 mmHg 2016-11-23 Blood pressure diastolic 76 mmHg 2016-11-23 MEDICATIONS Medication Instructions Dosage Frequency Start Date End Date Duration Status Nebulizer - as directed 8h Jul, Active Clindamycin HCl 300 MG Orally every 8 hrs 1 capsule 8h 12 Nov, 2016Nov 10 days Active Symbicort 160-4.5 MCG/ACT Inhalation Twice a day 2 puffs 12h 14 Apr, 2015 Active Aspirin Adult Low Strength 81 MG Orally Once a day 1 tablet 24h Active Ventolin HFA 108 (90 Base) MCG/ACT Inhalation 4 times a day 2 puffs as needed 6h Sep, Active Omeprazole 20 MG Orally Once a day 1 capsule 24h 30 Active Albuterol Sulfate (2.5 MG/3ML) 0.083% Inhalation Three times a day 3 ml 8h Jul, 30 days Active Diltiazem HCl ER Coated Beads 240 MG TAKE ONE CAPSULE BY MOUTH ONCE DAILY 90 Active Ambien 10 mg Orally Once a day as needed 1 tablet at bedtime Active [place] 7.5-325 MG Orally every 6 hrs as needed 1 tablet as needed Nov, Active Benzonatate 100 MG Orally Three times a day 1 capsule as needed 8h Active Pradaxa 150 MG Orally- Please voucher Twice a day 1 capsule 12h 14 days Active Gabapentin 100 mg Orally 2 times a day as needed 1 capsule Oct, 30 days Active RESULTS Name Result Date Reference Range CULTURE, ANAEROBIC AND AEROBIC 2016-11-23 Anaerobic Culture Final report Aerobic Culture Final report Result 1 Result 1 Acinetobacter lwoffii Result 2 Mixed skin trinh Antimicrobial Susceptibility PROCEDURES Procedure Date Ordered Result Body Site LAB NOT BILLED BY [facility] November 23, 2016 FQ VISIT ESTABLISHED PATIENT November 23, 2016 IMMUNIZATIONS No Known Immunizations MEDICAL (GENERAL) HISTORY Type Description Date Medical History gastroesophageal reflux disease (GERD) Medical History chronic obstructive pulmonary disease (COPD) Medical History hypertension Medical History cardiovascular disorder-CAD Medical History stroke Medical History gangrene of left 4th and 5th toes - amputated Medical History wound debridement of left heel Surgical History cardiothoracic surgery; fem-pop x 5, last done November 2016 Surgical History 07/03/15 Dr. Larkin did surgery again on fem-pop had wound care done. Surgical History Balloon placed in right leg 02/06/2016 Surgical History amputation, toes and heel 12/2016 Hospitalization History Hospitalization for surgery only Hospitalization History VC right leg blockage 02/06/2016 Hospitalization History deep vein thrombosis 11/2016
--- OUTSIDE RECORDS SUMMARY | 2017-07-04 18:27 | XMS REPORT ---
Author Author NIGEL ERNANDEZ Organization [facility] Address [address] [place] [address] Care Team Providers Care Counter Caser Name Role Phone NIGEL ERNANDEZ Unavailable PROBLEMS Type Condition ICD9-CM Code FLU09-XT Code Onset Dates Condition Status SNOMED Code Problem PVD (peripheral vascular disease) I73.9 Active 154959088 Problem Neuropathy G62.9 Active 923237155 Problem Chronic multifocal osteomyelitis, unspecified ankle and foot M86.379 Active 088567707 Problem Chronic obstructive pulmonary disease, unspecified J44.9 Active 03388330 Problem Panlobular emphysema J43.1 Active 6142159 Problem 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
--- OUTSIDE RECORDS SUMMARY | 2017-07-04 18:28 | XMS REPORT ---
Author Author NIGEL ERNANDEZ Organization [facility] Address [address] [place] [address] Care Team Providers Care Relief Worker Name Role Phone NIGEL ERNANDEZ Unavailable PROBLEMS Type Condition ICD9-CM Code [id number]-HZ Code Onset Dates Condition Status SNOMED Code Problem PVD (peripheral vascular disease) I73.9 Active 750138843 Problem Neuropathy G62.9 Active 475199015 Problem Chronic multifocal osteomyelitis, unspecified ankle and foot M86.379 Active 783481653 Problem Chronic obstructive pulmonary disease, unspecified J44.9 Active 26612744 Problem Panlobular emphysema J43.1 Active 5404605 Problem 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
--- OUTSIDE RECORDS SUMMARY | 2017-07-04 18:28 | XMS REPORT ---
Author Author NIGEL ERNANDEZ Organization [facility] Address [address] [place] [address] Care Team Providers Care Scalloper Name Role Phone NIGEL ERNANDEZ Unavailable PROBLEMS Type Condition ICD9-CM Code LCK16-[id number] Code Onset Dates Condition Status SNOMED Code Problem PVD (peripheral vascular disease) I73.9 Active 971979130 Problem Chronic obstructive pulmonary disease, unspecified J44.9 Active 95541941 Problem Panlobular emphysema J43.1 Active 2083028 Problem COPD (chronic obstructive pulmonary disease) J44.9 Active 15173372 Problem Pulmonary nodule R91.1 Active 846268912 Problem 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
--- OUTSIDE RECORDS SUMMARY | 2017-07-04 18:30 | XMS REPORT ---
Author Author NIGEL ERNANDEZ Organization [facility] Address [address] [place] [address] Care Team Providers Care Management Lead Name Role Phone NIGEL ERNANDEZ Unavailable PROBLEMS Type Condition ICD9-CM Code GFK79-HC Code Onset Dates Condition Status SNOMED Code Problem PVD (peripheral vascular disease) I73.9 Active 543538448 Problem Neuropathy G62.9 Active 228541843 Problem Chronic multifocal osteomyelitis, unspecified ankle and foot M86.379 Active 054409408 Problem Chronic obstructive pulmonary disease, unspecified J44.9 Active 98690775 Problem Panlobular emphysema J43.1 Active 1936483 Problem 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
--- OUTSIDE RECORDS SUMMARY | 2017-07-04 18:30 | XMS REPORT ---
Author Author NIGEL ERNANDEZ [facility] Address [address] [place] [address] Care Team Providers Care Production Planning Supervisor Name Role Phone OMA NIGEL Unavailable PROBLEMS Type Condition ICD9-CM Code SLF55-AM Code Onset Dates Condition Status SNOMED Code Problem PVD (peripheral vascular disease) I73.9 Active 935088299 Problem Neuropathy G62.9 Active 527677755 Problem Chronic multifocal osteomyelitis, unspecified ankle and foot M86.379 Active 078789138 Problem Chronic obstructive pulmonary disease, unspecified J44.9 Active 74701428 Problem Panlobular emphysema J43.1 Active 9441556 Problem 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 Unknown Non Drug Allergy Sep, Unknown SOCIAL HISTORY No smoking Hx information available PLAN OF CARE VITAL SIGNS Height 69 in 2016-09-22 Weight 141.2 lbs 2016-09-22 Temperature 98.0 degrees Fahrenheit 2016-09-22 Heart Rate 85 bpm 2016-09-22 Respiratory Rate 22 2016-09-22 Oximetry 98 % 2016-09-22 BMI 20.85 kg/m2 2016-09-22 Blood pressure systolic 140 mmHg 2016-09-22 Blood pressure diastolic 80 mmHg 2016-09-22 MEDICATIONS Medication Instructions Dosage Frequency Start Date End Date Duration Status Benzonatate 100 MG Orally Three times a day 1 capsule as needed 8h Active Pradaxa 150 MG TAKE ONE CAPSULE BY MOUTH TWICE DAILY 90 Active Nebulizer - as directed 8h Jul, Active [place] 7.5-325 MG Orally every 6 hrs as needed 1 tablet as needed Sep, Active Symbicort 160-4.5 MCG/ACT Inhalation Twice a day 2 puffs 12h 14 Apr, 2015 Active Aspirin Adult Low Strength 81 MG Orally Once a day 1 tablet 24h Active Omeprazole 20 MG Orally Once a day 1 capsule 24h 30 Active Albuterol Sulfate (2.5 MG/3ML) 0.083% Inhalation Three times a day 3 ml 8h Jul, 30 days Active Ventolin HFA 108 (90 Base) MCG/ACT Inhalation 4 times a day 2 puffs as needed 6h Sep, Active Diltiazem HCl ER Coated Beads 240 MG TAKE ONE CAPSULE BY MOUTH ONCE DAILY 90 Active Ambien 10 mg Orally Once a day as needed 1 tablet at bedtime Active RESULTS No Results PROCEDURES Procedure Date Ordered Related Diagnosis Body Site MEASURE BLOOD OXYGEN LEVEL Sep 22, 2016 [facility] VISIT ESTABLISHED PATIENT Sep 22, 2016 Office Visit, Est Pt., Level 3 Sep 22, 2016 IMMUNIZATIONS No Known Immunizations
--- OUTSIDE RECORDS SUMMARY | 2017-07-04 18:30 | XMS REPORT ---
Author Author NIGEL ERNANDEZ [facility] Address [address] [place] [address] Care Team Providers Care Network Support Analyst Name Role Phone NIGEL ERNANDEZ Unavailable PROBLEMS Type Condition ICD9-CM Code IOK80-KA Code Onset Dates Condition Status SNOMED Code Problem PVD (peripheral vascular disease) I73.9 Active 810547166 Problem Neuropathy G62.9 Active 654487464 Problem Chronic multifocal osteomyelitis, unspecified ankle and foot M86.379 Active 355571064 Problem Chronic obstructive pulmonary disease, unspecified J44.9 Active 96853636 Problem Panlobular emphysema J43.1 Active 0833447 Problem 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
--- OUTSIDE RECORDS SUMMARY | 2017-07-04 18:30 | XMS REPORT ---
Author Author NIGEL ERNANDEZ Organization [facility] Address [address] [place] [address] Care Team Providers Care Fountain Jerk Name Role Phone NIGEL ERNANDEZ Unavailable PROBLEMS Type Condition ICD9-CM Code WAJ89-OG Code Onset Dates Condition Status SNOMED Code Problem PVD (peripheral vascular disease) I73.9 Active 234256775 Problem Neuropathy G62.9 Active 418153306 Problem Chronic multifocal osteomyelitis, unspecified ankle and foot M86.379 Active 761292952 Problem Chronic obstructive pulmonary disease, unspecified J44.9 Active 44734072 Problem Panlobular emphysema J43.1 Active 8249431 Problem 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
--- OUTSIDE RECORDS SUMMARY | 2017-07-04 18:30 | XMS REPORT ---
Author Author NIGEL ERNANDEZ Organization [facility] Address [address] [place] [address] Care Team Providers Care Drafter Geological Name Role Phone NIGEL ERNANDEZ Unavailable PROBLEMS Type Condition ICD9-CM Code DAC09-CI Code Onset Dates Condition Status SNOMED Code Problem Panlobular emphysema J43.1 Active 7501412 Problem Cerebrovascular accident (CVA), unspecified I63.9 Active 816737922 Problem Chronic obstructive pulmonary disease, unspecified J44.9 Active 10645238 Problem PVD (peripheral vascular disease) I73.9 Active 513134522 Problem Lung nodule seen on imaging study R91.1 Active 642844265 Problem COPD (chronic obstructive pulmonary disease) J44.9 Active 76067299 Problem Chronic multifocal osteomyelitis, unspecified ankle and foot M86.379 Active 909818294 Problem 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
--- OUTSIDE RECORDS SUMMARY | 2017-07-04 18:31 | XMS REPORT ---
Author Author NIGEL ERNANDEZ Organization [facility] Address [address] [place] [address] Care Team Providers Care Cable Installer Repairer Helper Name Role Phone NIGEL ERNANDEZ Unavailable PROBLEMS Type Condition ICD9-CM Code MDH74-ZR Code Onset Dates Condition Status SNOMED Code Problem PVD (peripheral vascular disease) I73.9 Active 412248494 Problem Neuropathy G62.9 Active 100020347 Problem Chronic multifocal osteomyelitis, unspecified ankle and foot M86.379 Active 464601385 Problem Chronic obstructive pulmonary disease, unspecified J44.9 Active 38049459 Problem Panlobular emphysema J43.1 Active 3142185 Problem 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
--- OUTSIDE RECORDS SUMMARY | 2017-07-04 18:31 | XMS REPORT ---
Author Author NIGEL ERNANDEZ Organization [facility] Address [address] [place] [address] Care Team Providers Care Director Of Optimization Name Role Phone NIGEL ERNANDEZ Unavailable PROBLEMS Type Condition ICD9-CM Code KHQ77-IH Code Onset Dates Condition Status SNOMED Code Problem PVD (peripheral vascular disease) I73.9 Active 767386639 Problem Neuropathy G62.9 Active 385034315 Problem Chronic multifocal osteomyelitis, unspecified ankle and foot M86.379 Active 973387709 Problem Chronic obstructive pulmonary disease, unspecified J44.9 Active 05982258 Problem Panlobular emphysema J43.1 Active 6493709 Problem 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
--- OUTSIDE RECORDS SUMMARY | 2017-07-04 18:31 | XMS REPORT ---
Author Author NIGEL ERNANDEZ Organization [facility] Address [address] [place] [address] Care Team Providers Care Chute Man Name Role Phone NIGEL ERNANDEZ Unavailable PROBLEMS Type Condition ICD9-CM Code XZG18-TK Code Onset Dates Condition Status SNOMED Code Problem PVD (peripheral vascular disease) I73.9 Active 157667292 Problem Neuropathy G62.9 Active 161092750 Problem Chronic multifocal osteomyelitis, unspecified ankle and foot M86.379 Active 188959310 Problem Chronic obstructive pulmonary disease, unspecified J44.9 Active 60775949 Problem Panlobular emphysema J43.1 Active 6353322 Problem 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
[2017-07-04 20:00] VITALS: BP 174/92
[2017-07-04] MEDS ORDERED: RT-ALBUTEROL/IPRATROPIUM 3 ML (DUONEB) VIAL ONE (20:10)
[2017-07-04] MEDS: NS IV 1000 ML 1,000 ML IV SCH (20:39)
[2017-07-04] MEDS ORDERED: ONDANSETRON 4 MG/2 ML (SDV) Z0FRAN IV PRN (20:45)
[2017-07-04 21:33] VITALS: BP 146/87
[2017-07-04] MEDS: RT-ALBUTEROL/IPRATROPIUM 3 ML (DUONEB) VIAL INH SCH ×2 (21:55→21:56)
[2017-07-05] VITALS: BP 135/78
[2017-07-05] MEDS: RT-ALBUTEROL/IPRATROPIUM 3 ML (DUONEB) VIAL INH SCH ×6 (02:29→22:04)
[2017-07-05 04:00] VITALS: BP 133/72
[2017-07-05] MEDS: NS IV 1000 ML 1,000 ML IV SCH ×2 (06:57→16:55)
[2017-07-05] MEDS: RT-ADVAIR HFA 115/21 MCG PER PUFF IH SCH ×2 (07:07→22:04)
[2017-07-05 07:23] VITALS: BP 157/93
[2017-07-05] MEDS ORDERED: INFLUENZA TRIvalent 2017-2018 0.5 ML/45 MCG SYR IM ONE (07:30)
[2017-07-05] MEDS ORDERED: morphine INJ 10 MG/ML 1ML (SYR OR VIAL) IVP NR (08:56)
[2017-07-05] MEDS: oxyCODONE/APAP 5/325MG (PERCOCET 5) TABLET PO PRN (09:04)
[2017-07-05] MEDS ORDERED: CYCL10TA9 PO (11:38)
[2017-07-05] MEDS ORDERED: ALBU18HF2 IH (11:38)
[2017-07-05] MEDS ORDERED: MORP-34 PO (11:38)
[2017-07-05] MEDS ORDERED: OMEP20CA12 PO (11:38)
[2017-07-05] MEDS ORDERED: ZOLP10TA5 PO (11:38)
[2017-07-05] MEDS ORDERED: GABA-488 PO (11:38)
[2017-07-05] MEDS ORDERED: DILT240C87 PO (11:38)
[2017-07-05] MEDS ORDERED: BUDE10.2 IH (11:38)
[2017-07-05] MEDS ORDERED: DOXY100C42 PO (11:38)
[2017-07-05] MEDS ORDERED: DABI150C5 PO (11:48)
[2017-07-05] MEDS ORDERED: ASPI-983 PO (11:48)
[2017-07-05] MEDS ORDERED: HYDR-3816 PO (11:48)
[2017-07-05 12:00] VITALS: BP 160/93
[2017-07-05] MEDS: HYDROcodone/APAP 7.5 MG/325 MG (LORTAB, LORCET PLUS) TABLET PO PRN (14:04)
[2017-07-05] MEDS: morphine ER 30 MG (MS CONTIN) TAB PO SCH (14:05)
[2017-07-05] MEDS: GABAPENTIN 300 MG (NEURONTIN) CAP PO SCH ×2 (14:08→20:24)
[2017-07-05 16:00] VITALS: BP 140/70
--- NOTE | 2017-07-05 19:06 | History & Physicial ([facility]) ---
HPI History of Present Illness: 67 yo M that fell on thursday and presented to ER last night with right hip pain found to have fracture. States that he tripped over a cord when he fell. Since the fall he has been having increasing difficulties breathing. He turned up his oxygen at home and has been taking his PRN breathing treatments. This AM states that his breathing is more comfortable but he is still on increased oxygen requirement from his baseline. States that his pain is well controlled. Source: patient, RN/MD Exam Limitations: no limitations Date seen by provider: Jul 05, 2017 Time Seen by Provider: 10:05 Attending Physician Sveta Shell MD PCP Artur Albrecht MD Consult Date of Admission Jul 04, 2017 at 17:36 Home Medications Home Medications Reviewed patient Home Medication Reconciliation Form Allergies Coded Allergies: No Known Drug Allergies (Unverified , 11/22/12) QVO-Hqdoeh-Mpwkfs Hx Patient Social History Living Status: Lives home alone Alcohol Use: Regular Use Recreational Drug Use: No Smoking Status: Current Everyday Smoker Type Used: Cigarettes Recent Foreign Travel: No Contact w/other who traveled: No Recent Hopitalizations: No Recent Infectious Disease Expo: No Physical Abuse Screen: No Sexual Abuse: No Immunizations Up To Date Tetanus Booster (TDap): More than 5yrs Date of Pneumonia Vaccine: Jun 14, 2016 Date of Influenza Vaccine: Jun 16, 2016 Past Medical History CAD s/p CABG PVD s/p left toe amputation COPD with home oxygen h/o CVA no residual HTN Atrial fibrillation Family Medical History Significant Family History: No Pertinent Family Hx Review of Systems ([facility]) Constitutional: no symptoms reported, No chills, No dizziness, No fever, No malaise, No weakness EENTM: no symptoms reported, No blurred vision, No vision loss Respiratory: dyspnea on exertion, short of breath Cardiovascular: no symptoms reported, No chest pain, No edema, No palpitations Gastrointestinal: no symptoms reported, No constipation, No diarrhea, No nausea , No vomiting Genitourinary: no symptoms reported, No dysuria, No frequency, No hematuria Musculoskeletal: joint pain (Right hip) Skin: rash (Right foot) Psychiatric/Neurological: No Symptoms Reported, Denies Anxiety, Denies Depressed Reviewed Test Results Reviewed Test Results Lab Laboratory Tests Test 07/04/17 16:00 07/04/17 23:00 07/05/17 04:53 Range/Units White Blood Count 10.4 4.3-11.0 10^3/uL Red Blood Count 4.53 4.35-5.85 10^6/uL Hemoglobin 12.6 L 13.3-17.7 G/DL Hematocrit 39 L 40-54 % Mean Corpuscular Volume 86 80-99 FL Mean Corpuscular Hemoglobin 28 25-34 PG Mean Corpuscular Hemoglobin Concent 32 32-36 G/DL Red Cell Distribution Width 15.9 H 10.0-14.5 % Platelet Count 270 130-400 10^3/uL Mean Platelet Volume 10.2 7.4-10.4 FL Neutrophils (%) (Auto) 82 H 42-75 % Lymphocytes (%) (Auto) 8 L 12-44 % Monocytes (%) (Auto) 8 0-12 % Eosinophils (%) (Auto) 1 0-10 % Basophils (%) (Auto) 0 0-10 % Neutrophils # (Auto) 8.6 H 1.8-7.8 X 10^3 Lymphocytes # (Auto) 0.9 L 1.0-4.0 X 10^3 Monocytes # (Auto) 0.9 0.0-1.0 X 10^3 Eosinophils # (Auto) 0.1 0.0-0.3 10^3/uL Basophils # (Auto) 0.0 0.0-0.1 10^3/uL Sodium Level 137 135-145 MMOL/L Potassium Level 4.2 3.6-5.0 MMOL/L Chloride Level 102 98-107 MMOL/L Carbon Dioxide Level 26 21-32 MMOL/L Anion Gap 9 5-14 MMOL/L Blood Urea Nitrogen 23 H 7-18 MG/DL Creatinine 0.72 0.60-1.30 MG/DL Estimat Glomerular Filtration Rate > 60 BUN/Creatinine Ratio 32 Glucose Level 97 70-105 MG/DL Calcium Level 9.8 8.5-10.1 MG/DL Total Bilirubin 0.7 0.1-1.0 MG/DL Aspartate Amino Transf (AST/SGOT) 29 5-34 U/L Alanine Aminotransferase (ALT/SGPT) 36 0-55 U/L Alkaline Phosphatase 118 40-136 U/L Total Protein 7.5 6.4-8.2 GM/DL Albumin 3.8 3.2-4.5 GM/DL Activated Partial Thromboplast Time 73 H 67 H 24-35 SEC Radiology Date of Exam: 07/04/17 PELVIS WITH RIGHT HIP 2-3VIEWS INDICATION: Fall. COMPARISON: None. EXAMINATION: AP view of the pelvis and two views of the right hip were obtained. FINDINGS: There is a nondisplaced intertrochanteric fracture of the proximal right femur. Alignment at the hip joints appears preserved. The left hip appears unremarkable. The sacroiliac joints appear unremarkable. Vascular calcifications are demonstrated. Long stent is seen within the right superficial femoral artery. IMPRESSION: Nondisplaced intra-articular fracture of the proximal right femur. Physical Exam-([facility]) Physical Exam Vital Signs VS - Last 72 Hours, by Label 07/04/17 07/04/17 07/04/17 07/04/17 15:48 16:05 19:04 20:00 Temp 97.5 97.5 97.5 99.4 Pulse 70 68 113 Resp 16 20 24 B/P (MAP) 139/94 174/92 Pulse Ox 95 95 94 O2 Delivery Nasal Cannula Nasal Cannula O2 Flow Rate 3.00 07/04/17 07/04/17 07/04/17 07/04/17 20:00 20:15 20:15 21:33 Pulse 112 B/P (MAP) 146/87 Pulse Ox 95 91 91 O2 Delivery Nasal Cannula Nasal Cannula O2 Flow Rate 3.00 3.00 07/04/17 07/04/17 07/05/17 07/05/17 21:56 22:17 00:00 02:29 Temp 97.6 Pulse 110 Resp 20 B/P (MAP) 135/78 Pulse Ox 80 94 91 97 O2 Delivery Nasal Cannula Vapotherm Vapotherm Vapotherm O2 Flow Rate 3.00 20.00 80.00 20.00 20.00 FiO2 80 80 07/05/17 07/05/17 07/05/17 07/05/17 04:00 07:09 07:23 09:00 Temp 97.4 97.8 Pulse 99 90 Resp 20 18 B/P (MAP) 133/72 157/93 Pulse Ox 93 92 94 97 O2 Delivery Vapotherm Vapotherm Vapotherm Vapotherm O2 Flow Rate 70.00 20.00 70.00 15.00 20.00 20.00 FiO2 70 07/05/17 07/05/17 07/05/17 07/05/17 10:51 12:00 14:40 16:00 Temp 99.1 100.2 Pulse 110 104 Resp 22 18 B/P (MAP) 160/93 140/70 Pulse Ox 90 91 97 92 O2 Delivery Vapotherm Vapotherm Vapotherm Vapotherm O2 Flow Rate 15.00 70.00 15.00 60.00 15.00 10.00 FiO2 70 70 07/05/17 18:31 Pulse Ox 88 O2 Delivery Vapotherm O2 Flow Rate 10.00 FiO2 60 Capillary Refill : Less Than 3 SecondsLess Than 3 Seconds General Appearance: WD/WN, no apparent distress HEENT: PERRL/EOMI Neck: non-tender, full range of motion, supple Respiratory: chest non-tender, normal breath sounds, no accessory muscle use, decreased breath sounds, No crackles, wheezing Cardiovascular: regular rate, rhythm, no edema, no murmur Gastrointestinal: normal bowel sounds, non tender, soft, no organomegaly Back: decreased range of motion (Right hip due to pain, point ttp R troch) Extremities: no pedal edema, no calf tenderness, inflammation (Right foot with erythema, marked with pin, thicken nails bilaterally, Left foot s/p 4th/5th toe amputation) Neurologic/Psychiatric: 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, no motor/sensory deficits, alert, normal mood/affect, oriented x 3 Skin: cool (bilateral feet, + wounds on right foot (chronic)) Lymphatic: no adenopathy Clinical Quality Measures DVT/VTE Risk/Contraindication: Risk Factor Score Per Nursin RFS Level Per Nursing on Admit: 4+=Very High Copy Copies To 1: ARTUR ALBRECHT MD Assessment/Plan Assessment/Plan Plan 67 yo M admitted for Right hip fracture Plan Right intertrochanteric hip fracture - Ortho consulted, plan for surgery on Thursday given patient on Pradaxa, Last dose Sat AM - Currently on Heparin as patient is high risk for stroke - Pain controlled with PO meds Acute on Chronic Hypoxic Respiratory Failure - CXR not consistent with PNA, Consider CTA but patient has not missed any doses of anticoagulation - Titrate as tolerated - A/A nebs scheduled and PRN - CXR in AM - Monitor off Antibiotics at this time CAD s/p CABG - Holding ASA while on Heparin PVD s/p Left toe amputation and R femoral stent h/o CVA: no residual Chronic Atrial Fibrillation - Hold Pradaxa, Continue Heparin FEN: Heart healthy diet DVT PPX: Heparin Dispo: Admit to Med/Surg, plan for surgery on Social: Patient will likely need ARF/SNF evaluation after surgery SVETA SHELL MD Jul 05, 2017 19:06
[2017-07-05 20:00] VITALS: BP 143/88
[2017-07-05] MEDS ORDERED: ACETAMINOPHEN 325 MG TABLET/CAPLET (TYLENOL) PO PRN (20:15)
[2017-07-05] MEDS ORDERED: AZITHROMYCIN 250 MG TAB (ZITHROMAX) PO ONE (20:15)
[2017-07-05] MEDS: CYCLOBENZAPRINE 10 MG (FLEXERIL) TAB PO SCH (20:23)
[2017-07-05] MEDS: LEVOFLOXACIN 750 MG TAB (LEVAQUIN) PO SCH (20:24)
[2017-07-05] MEDS ORDERED: RT-SYMBICORT 160/4.5 MCG INHALER PER PUFF IH SCH (21:00)
[2017-07-05] MEDS ORDERED: GABAPENTIN 300 MG (NEURONTIN) CAP PO SCH (21:00)
[2017-07-06 00:49] VITALS: BP 122/75
[2017-07-06] MEDS: morphine ER 30 MG (MS CONTIN) TAB PO SCH ×2 (00:58→13:01)
--- NOTE | 2017-07-06 01:33 | CONSULTATION REPORT ---
DATE OF SERVICE: Inpatient consultation at the request of Dr. Sveta Shell for right hip intertrochanteric fracture. HISTORY OF PRESENT ILLNESS: The patient apparently was injured yesterday and came in to the Emergency Department and I was called. It was made obvious that his medications included Pradaxa for thinning his blood. The patient apparently has a history in the past of stopping his Pradaxa and having a TIA. Plus, he has also had 2 strokes in the past. ORTHOPEDIC EXAMINATION: Patient is alert, oriented and cooperative. He is lying supine in the bed. His right upper extremity is flexed and externally rotated. There was a lot of discomfort in the motion about the right hip. X-RAY: X-ray of the right hip shows an intertrochanteric fracture with some shortening. Also shows a very highly calcified femoral artery. IMPRESSION: 1. Unstable right intertrochanteric fracture. 2. The patient is on Pradaxa. PLAN: I looked up online and found references that state this type of surgery needs 2-4-day period off of the medication. He takes medication twice a day, 6:00 a.m. and 6:00 p.m. and his last dose was yesterday morning, the day of his injury. I calculate 2 days to be completed on Thursday at 6:00 p.m. I spoke with pharmacist, Tram ____ and she agreed that ideally we would wait at least until Thursday for the surgery. I specifically brought up the subject of reversing the Pradaxa and Tram states that that would only be used for stopping active bleeding in a trauma case kind of a situation. I looked online and could find no references where using the reversal agent would be appropriate for a broken hip surgery. I did inform Dr. Reyes about this patient and the situation with the Pradaxa. He said he would work on finding an orthopedic surgeon to do the surgery on Thursday as I am in the office shift 7:00 a.m. Thursday. Job ID: [id number] DocumentID: [id number] Dictated Date: 07/05/2017 15:02:23 Lace Pinner Date: 07/05/2017 17:42:51 Dictated By: JAKE CHAMPION MD
[2017-07-06] MEDS: RT-ALBUTEROL/IPRATROPIUM 3 ML (DUONEB) VIAL INH SCH ×6 (02:22→21:22)
[2017-07-06 04:30] VITALS: BP 131/74
[2017-07-06] MEDS: NS IV 1000 ML 1,000 ML IV SCH ×2 (04:40→17:26)
[2017-07-06] MEDS: PANTOPRAZOLE 20 MG TABLET (PROTONIX) PO SCH (06:11)
[2017-07-06] MEDS: HEParin DRIP 25000 UNIT/500ML 500 ML IV SCH (06:17)
[2017-07-06 06:40] LABS: BASOPHILS % (AUTO) 0 % (0-10); EOSINOPHILS # (AUTO) 0.3 10^3/uL (0.0-0.3); EOSINOPHILS % (AUTO) 3 % (0-10); LYMPHOCYTES # (AUTO) 0.7 X 10^3 (1.0-4.0); LYMPHOCYTES % (AUTO) 8 % (12-44); MEAN CORPUSCULAR HEMOGLOBIN 28 PG (25-34); MEAN CORPUSCULAR HGB CONC 31 G/DL (32-36); MEAN CORPUSCULAR VOLUME 89 FL (80-99); MEAN PLATELET VOLUME 10.3 FL (7.4-10.4); MONOCYTES # (AUTO) 1.1 X 10^3 (0.0-1.0); MONOCYTES % (AUTO) 12 % (0-12); NEUTROPHILS # (AUTO) 6.9 X 10^3 (1.8-7.8); NEUTROPHILS % (AUTO) 77 % (42-75); PLATELET COUNT 166 10^3/uL (130-400); RED BLOOD COUNT 3.45 10^6/uL (4.35-5.85); RED CELL DISTRIBUTION WIDTH 16.1 % (10.0-14.5)
[2017-07-06 06:59] LABS: ALANINE AMINOTRANSFERASE 19 U/L (0-55); ALBUMIN 2.7 GM/DL (3.2-4.5); ANION GAP 6 MMOL/L (5-14); ASPARTATE AMINO TRANSFERASE 19 U/L (5-34); BILIRUBIN,TOTAL 0.5 MG/DL (0.1-1.0); BLOOD UREA NITROGEN 20 MG/DL (7-18); BUN/CREATININE RATIO 26; CALCIUM 8.7 MG/DL (8.5-10.1); CARBON DIOXIDE 26 MMOL/L (21-32); CHLORIDE 108 MMOL/L (98-107); CREATININE SERUM 0.78 MG/DL (0.60-1.30); GFR ESTIMATED > 60; GLUCOSE 95 MG/DL (70-105); POTASSIUM 3.8 MMOL/L (3.6-5.0); SODIUM 140 MMOL/L (135-145); TOTAL PROTEIN 5.6 GM/DL (6.4-8.2)
[2017-07-06 08:00] VITALS: BP 138/82
[2017-07-06] MEDS: DILTIAZEM 240 MG (CARDIZEM CD) CAP PO SCH (10:09)
[2017-07-06] MEDS: AZITHROMYCIN 250 MG TAB (ZITHROMAX) PO SCH (10:09)
[2017-07-06] MEDS: CYCLOBENZAPRINE 10 MG (FLEXERIL) TAB PO SCH ×3 (10:09→20:07)
[2017-07-06] MEDS: GABAPENTIN 300 MG (NEURONTIN) CAP PO SCH ×3 (10:09→20:07)
[2017-07-06 12:00] VITALS: BP 122/80
[2017-07-06] MEDS: RT-ALBUTEROL/IPRATROPIUM 3 ML (DUONEB) VIAL INH PRN (13:52)
--- NOTE | 2017-07-06 14:53 | Diagnostic Imaging Report ---
EXAMINATION: Portable upright radiograph of the chest. INDICATION: Respiratory distress. COMPARISON: 07/04/2017. FINDINGS: There is new prominent consolidation in the left infrahilar and left lung base regions with a small left effusion. There is stable atelectasis in the right middle lobe. The heart size is normal. No pneumothorax. IMPRESSION: Prominent patchy left infrahilar and basilar infiltrates, new from the prior exam, suggestive of pneumonia. The report was faxed to patient's nurse Jessica @ [facility] in [place], [place] by [email or web address]@ 2:49 PM. Dictated by: Dictated on workstation # [id number]
[2017-07-06 16:30] VITALS: BP 112/77
[2017-07-06] MEDS: LEVOFLOXACIN 750 MG TAB (LEVAQUIN) PO SCH (20:07)
[2017-07-06 20:34] VITALS: BP 125/79
[2017-07-06 21:17] LABS: PH,URINE 6 (5-9); PROTEIN,URINE 2+ (NEGATIVE)
[2017-07-06 21:18] LABS: BILIRUBIN,URINE NEGATIVE (NEGATIVE); KETONES,URINE NEGATIVE (NEGATIVE); LEUKOCYTE ESTERASE ,URINE 2+ (NEGATIVE); NITRITE,URINE NEGATIVE (NEGATIVE); UROBILINOGEN,URINE NORMAL (NORMAL); WBC,URINE 50-100 /HPF
[2017-07-06] MEDS: ADVAIR HFA 115/21 MCG INHALER 8 GM IH SCH (21:23)
[2017-07-07] VITALS (7 sets, daily range): BP systolic 112–142; BP diastolic 66–87
[2017-07-07] MEDS: morphine ER 30 MG (MS CONTIN) TAB PO SCH ×2 (01:45→14:25)
[2017-07-07] MEDS: RT-ALBUTEROL/IPRATROPIUM 3 ML (DUONEB) VIAL INH SCH ×6 (02:13→22:19)
[2017-07-07] MEDS: PANTOPRAZOLE 20 MG TABLET (PROTONIX) PO SCH (06:00)
[2017-07-07 06:47] LABS: BASOPHILS % (AUTO) 0 % (0-10); EOSINOPHILS # (AUTO) 0.1 10^3/uL (0.0-0.3); EOSINOPHILS % (AUTO) 1 % (0-10); LYMPHOCYTES # (AUTO) 0.8 X 10^3 (1.0-4.0); LYMPHOCYTES % (AUTO) 8 % (12-44); MEAN CORPUSCULAR HEMOGLOBIN 27 PG (25-34); MEAN CORPUSCULAR HGB CONC 31 G/DL (32-36); MEAN CORPUSCULAR VOLUME 89 FL (80-99); MEAN PLATELET VOLUME 11.1 FL (7.4-10.4); MONOCYTES # (AUTO) 1.1 X 10^3 (0.0-1.0); MONOCYTES % (AUTO) 12 % (0-12); NEUTROPHILS # (AUTO) 7.8 X 10^3 (1.8-7.8); NEUTROPHILS % (AUTO) 79 % (42-75); PLATELET COUNT 155 10^3/uL (130-400); WHITE BLOOD COUNT 9.9 10^3/uL (4.3-11.0)
[2017-07-07] MEDS: NS IV 1000 ML 1,000 ML IV SCH (06:49)
[2017-07-07] MEDS: ADVAIR HFA 115/21 MCG INHALER 8 GM IH SCH ×2 (07:01→19:06)
[2017-07-07 07:03] LABS: ANION GAP 7 MMOL/L (5-14); BLOOD UREA NITROGEN 26 MG/DL (7-18); BUN/CREATININE RATIO 34; CALCIUM 9.1 MG/DL (8.5-10.1); CARBON DIOXIDE 23 MMOL/L (21-32); CHLORIDE 107 MMOL/L (98-107); CREATININE SERUM 0.77 MG/DL (0.60-1.30); GFR ESTIMATED > 60; GLUCOSE 116 MG/DL (70-105); MAGNESIUM 1.5 MG/DL (1.8-2.4); PHOSPHORUS 3.2 MG/DL (2.3-4.7); POTASSIUM 3.5 MMOL/L (3.6-5.0); SODIUM 137 MMOL/L (135-145)
--- NOTE | 2017-07-07 07:21 | Pulmonary Consultation ---
History of Present Illness History of Present Illness Date of Consultation 07/07/17 07:14 Time Seen by Provider: 07:14 Date of Admission History of Present Illness 67yo with hx of COPD oxygen dependent 3liters presented to ED on 07/04 s/p fall on Thursday found to have a fracture in ED. Pt has been having increased SOB and has been requiring more oxygen and breathing treatments without much relief. pt is currently requiring high flow oxygen and CXR appears to be getting worse. He has been running fevers since admission. Labs and radiology reviewed. I am consulted for pulmonary management. Allergies and Home Medications Allergies Coded Allergies: No Known Drug Allergies (Unverified , 11/22/12) Home Medications Albuterol Sulfate 18 Gm Hfa.aer.ad, 2 PUFF IH QID PRN for SHORTNESS OF BREATH, ( Reported) Aspirin 81 Mg Tablet.dr, 81 MG PO DAILY, (Reported) Budesonide/Formoterol Fumarate 10.2 Gm Hfa.aer.ad, 2 PUFF IH BID, (Reported) Cyclobenzaprine HCl 10 Mg Tablet, 10 MG PO TID, (Reported) Dabigatran Etexilate Mesylate 150 Mg Capsule, 150 MG PO BID, (Reported) Diltiazem HCl 240 Mg Capsule.er, 240 MG PO DAILY, (Reported) Doxycycline Monohydrate 100 Mg Capsule, 100 MG PO BID for 10 Days, (Reported) FILLED 06/29/17 #20 FOR A 10 DAY THERAPY Gabapentin 300 Mg Capsule, 300 MG PO TID, (Reported) Hydrocodone/Acetaminophen 1 Each Tablet, 1 TAB PO Q4H PRN for PAIN-MODERATE, ( Reported) Morphine Sulfate 30 Mg Tablet.er, 30 MG PO Q12H, (Reported) Omeprazole 20 Mg Capsule.dr, 20 MG PO DAILY, (Reported) Zolpidem Tartrate 10 Mg Tablet, 10 MG PO HS, (Reported) Past Cpyxuip-Maceex-Xebyyh Hx Patient Social History Alcohol Use: Regular Use Number of Drinks Today: BB Alcohol Beverage of Choice: [place] Recreational Drug Use: No Smoking Status: Current Everyday Smoker Type Used: Cigarettes Recent Foreign Travel: No Contact w/Someone Who Travel: No Recent Infectious Disease Expo: No Recent Hopitalizations: No Immunizations Up To Date Tetanus Booster (TDap): More than 5yrs Date of Pneumonia Vaccine: Jun 14, 2016 Date of Influenza Vaccine: Jun 16, 2016 Surgeries History of Surgeries: Yes (LEFT CAROTID 2000/STENTS TO L LEG) Surgeries: Appendectomy Respiratory History of Respiratory Disorde: Yes (HX PNEUMONIA) Respiratory Disorders: Pneumonia, COPD Currently Using CPAP: No Currently Using BIPAP: No Cardiovascular History of Cardiac Disorders: Yes (LEFT CAROTID STENTING IN 1999) Neurological History of Neurological Disord: Yes Neurological Disorders: Stroke Reproductive System Hx Reproductive Disorders: No Genitourinary History of Genitourinary Disor: No Gastrointestinal History of Gastrointestinal Di: Yes Gastrointestinal Disorders: Hiatal Hernia, Ulcer Musculoskeletal History of Musculoskeletal Dis: Yes Musculoskeletal Disorders: Fractures Endocrine History of Endocrine Disorders: No HEENT Loss of Vision: Denies Hearing Impairment: Denies Cancer History of Cancer: No Psychosocial History of Psychiatric Problem: No Integumentary History of Skin or Integumenta: No Blood Transfusions History of Blood Disorders: No Family Medical History Significant Family History: No Pertinent Family Hx Review of Systems Time Seen by Provider: 07:40 Constitutional: Fever, Sweats, Weakness, Malaise Respiratory: Cough, Dry, Shortness of breath, SOB with excertion, Wheezing, No : Sputum Cardiovascular: Paroxysmal Noc. Dyspnea Gastrointestinal: No: Nausea, Vomiting, Abdominal Pain, Diarrhea, Constipation , Melena, Hematochezia, Other Neurological: Weakness Exam Exam Vital Signs Date Time Temp Pulse Resp B/P (MAP) Pulse Ox O2 Delivery O2 Flow Rate FiO2 07/07/17 06:59 99 Vapotherm 25.00 100 07/07/17 06:59 82 99 07/07/17 04:26 99.3 84 19 132/70 100 Vapotherm 100.00 25.00 07/07/17 02:14 97 Vapotherm 25.00 100 07/07/17 00:20 99.8 88 20 130/66 94 Vapotherm 100.00 25.00 07/06/17 21:25 96 Vapotherm 20.00 100 07/06/17 21:00 Vapotherm 07/06/17 20:34 99.5 75 18 125/79 95 Vapotherm 07/06/17 18:44 115 26 60.00 07/06/17 16:30 100.7 71 23 112/77 95 Vapotherm 07/06/17 15:00 104 35 60.00 07/06/17 13:30 110 22 80.00 07/06/17 12:00 100.5 117 20 122/80 94 Vapotherm 65.00 15.00 07/06/17 10:37 99 Vapotherm 20.00 75 07/06/17 09:00 Vapotherm 07/06/17 08:00 99.2 100 20 138/82 97 Vapotherm 65.00 15.00 07/06/17 07:47 94 Vapotherm 25.00 85 General Appearance: Anxious, Mild Distress HEENT: PERRL/EOMI, Normal ENT Inspection Neck: Full Range of Motion, Normal Inspection Respiratory: Accessory Muscle Use, Crackles, Decreased Breath Sounds, Rhonci Cardiovascular: Regular Rate, Rhythm Capillary Refill: Less Than 3 Seconds Gastrointestinal: normal bowel sounds, non tender, soft, no organomegaly Neurologic/Psychiatric: Alert, Oriented x3 Skin: Normal Color, Warm/Dry Lymphatic: No Adenopathy Results Lab Laboratory Tests 07/06/17 06:30 07/07/17 06:24 Assessment/Plan Assessment/Plan Right intertrochanteric hip fracture -Ortho is following probable surgery today Acute on chronic respiratory failure -SVNs -Daily CXR and Labs -Titrate oxygen as tolerated -Check ABG Pneumonia -Pt is currently on Levaquin and Azithromycin CXR appears to be getting worse -Add Vancomycin -Alfaro culture MRSA wound infection HX of Afib - pt has been on Pradaxa currently on hold for surgery I would recommend holding off on surgery if possible secondary to pneumonia. Pt is currently severe risk for pulmonary complications. will have low threshold for sending pt to ICU. 255 Clinical Quality Measures DVT/VTE Risk/Contraindication: Risk Factor Score Per Nursin RFS Level Per Nursing on Admit: 4+=Very High IRENE VAZ DO Jul 07, 2017 07:21
[2017-07-07] MEDS ORDERED: KCL 10 MEQ TAB (MICRO K) PO NR (07:30)
[2017-07-07] MEDS ORDERED: PHARMACY TO DOSE IV SCH (07:30)
[2017-07-07] MEDS ORDERED: FUROSEMIDE 40 MG/4 ML INJ (LASIX) IVP NR (07:30)
[2017-07-07] MEDS ORDERED: VANCOMYCIN 1250 MG/NS 250 ML IVPB IV NR ×2 (08:06)
[2017-07-07 08:10] LABS: ABG BASE EXCESS -1.7 MMOL/L (-2.5-2.5); ABG HCO3 22 MMOL/L (23-27); ABG OXYGEN SATURATION 93 % (94-100); ABG PCO2 36 MMHG (35-45); ABG PH 7.41 (7.37-7.43); ABG PO2 61 MMHG (79-93); ABG TCO2 23.4 MMOL/L (21.0-31.0)
[2017-07-07 08:11] LABS: ALLENS TEST YES-POS; PATIENT TEMP 98.6
[2017-07-07] MEDS: MAGNESIUM 1 GM/100 ML IVPB 100 ML IV SCH ×2 (10:03→11:20)
[2017-07-07] MEDS: AZITHROMYCIN 250 MG TAB (ZITHROMAX) PO SCH (10:03)
[2017-07-07] MEDS: DILTIAZEM 240 MG (CARDIZEM CD) CAP PO SCH (10:03)
[2017-07-07] MEDS: GABAPENTIN 300 MG (NEURONTIN) CAP PO SCH ×3 (10:04→20:03)
[2017-07-07] MEDS: CYCLOBENZAPRINE 10 MG (FLEXERIL) TAB PO SCH ×3 (10:04→20:03)
[2017-07-07] MEDS: HYDROcodone/APAP 7.5 MG/325 MG (LORTAB, LORCET PLUS) TABLET PO PRN (10:11)
[2017-07-07] MEDS ORDERED: HEParin 1000 UNIT/ML (10ML VIAL) FOR BOLUS IV PRN (10:30)
[2017-07-07] MEDS: HEParin 1000 UNIT/ML (10ML VIAL) FOR BOLUS IV PRN (10:37)
[2017-07-07] MEDS ORDERED: LIDOCAINE UROJET 2% GEL 10 ML PKG TOP ONE (11:30)
[2017-07-07 15:11] LABS: BILIRUBIN,URINE NEGATIVE (NEGATIVE); KETONES,URINE NEGATIVE (NEGATIVE); LEUKOCYTE ESTERASE ,URINE 2+ (NEGATIVE); NITRITE,URINE NEGATIVE (NEGATIVE); PH,URINE 6.5 (5-9); PROTEIN,URINE 2+ (NEGATIVE); UROBILINOGEN,URINE NORMAL (NORMAL)
[2017-07-07 15:34] LABS: WBC,URINE >100 /HPF
[2017-07-07] MEDS: HEParin DRIP 25000 UNIT/500ML 500 ML IV SCH (17:57)
[2017-07-07] MEDS: LEVOFLOXACIN 750 MG TAB (LEVAQUIN) PO SCH (20:03)
[2017-07-08 00:42] VITALS: BP 122/82
[2017-07-08] MEDS: morphine ER 30 MG (MS CONTIN) TAB PO SCH ×2 (01:10→12:44)
[2017-07-08] MEDS ORDERED: meTOprolol 5 MG/5 ML (LOPRESSOR) VIAL IV ONE (02:30)
[2017-07-08] MEDS: RT-ALBUTEROL/IPRATROPIUM 3 ML (DUONEB) VIAL INH SCH ×6 (02:42→22:00)
[2017-07-08 04:44] VITALS: BP 102/62
[2017-07-08] MEDS: PANTOPRAZOLE 20 MG TABLET (PROTONIX) PO SCH (06:05)
[2017-07-08 06:43] LABS: BASOPHILS % (AUTO) 0 % (0-10); EOSINOPHILS # (AUTO) 0.2 10^3/uL (0.0-0.3); EOSINOPHILS % (AUTO) 3 % (0-10); LYMPHOCYTES # (AUTO) 0.8 X 10^3 (1.0-4.0); LYMPHOCYTES % (AUTO) 10 % (12-44); MEAN CORPUSCULAR HEMOGLOBIN 28 PG (25-34); MEAN CORPUSCULAR HGB CONC 32 G/DL (32-36); MEAN CORPUSCULAR VOLUME 89 FL (80-99); MEAN PLATELET VOLUME 11.1 FL (7.4-10.4); MONOCYTES % (AUTO) 12 % (0-12); NEUTROPHILS % (AUTO) 74 % (42-75); PLATELET COUNT 164 10^3/uL (130-400); RED BLOOD COUNT 3.11 10^6/uL (4.35-5.85); WHITE BLOOD COUNT 8.1 10^3/uL (4.3-11.0)
--- NOTE | 2017-07-08 06:45 | Pulmonary Progress Note ---
Subjective Time Seen by Provider: 07:28 Subjective/Events-last exam Pt is currently on Fi02 of 45% via Vaportherm and has Sp02 of 84%. Will titrate up to obtain Sp02 of 90% or greater. Exam Exam Vital Signs Date Time Temp Pulse Resp B/P (MAP) Pulse Ox O2 Delivery O2 Flow Rate FiO2 07/08/17 04:44 97.9 89 16 102/62 96 Vapotherm 50.00 25.00 07/08/17 02:42 99 Vapotherm 25.00 55 07/08/17 00:42 98.4 103 16 122/82 94 Vapotherm 50.00 25.00 07/07/17 22:20 92 Vapotherm 25.00 50 07/07/17 20:15 98.2 130 24 137/86 93 Vapotherm 50.00 25.00 07/07/17 20:03 Vapotherm 25.00 50 07/07/17 19:07 97 Vapotherm 25.00 50 07/07/17 16:10 98.1 110 22 112/69 94 Vapotherm 07/07/17 15:01 97 Vapotherm 25.00 65 07/07/17 12:01 98.9 120 20 136/87 97 Vapotherm 100.00 25.00 07/07/17 10:20 117 20 92 60.00 07/07/17 10:13 92 Vapotherm 25.00 65 07/07/17 09:00 Vapotherm 25.00 65 07/07/17 08:00 99.1 113 20 142/71 90 Vapotherm 100.00 25.00 07/07/17 06:59 99 Vapotherm 25.00 100 07/07/17 06:59 82 99 General Appearance: Anxious, Mild Distress HEENT: PERRL/EOMI, Normal ENT Inspection Neck: Full Range of Motion, Normal Inspection Respiratory: Accessory Muscle Use, Crackles, Decreased Breath Sounds, Rhonci Cardiovascular: Regular Rate, Rhythm Capillary Refill: Less Than 3 Seconds Gastrointestinal: normal bowel sounds, non tender, soft, no organomegaly Neurologic/Psychiatric: Alert, Oriented x3 Skin: Normal Color, Warm/Dry Lymphatic: No Adenopathy Results Lab Laboratory Tests 07/07/17 06:24 Assessment/Plan Assessment/Plan Right intertrochanteric hip fracture -Ortho is following Acute on chronic respiratory failure -SVNs -Daily CXR and Labs -Titrate oxygen as tolerated Pneumonia -repeat CXR today Vancomycin , Levaquin -Alfaro culture MRSA wound infection HX of Afib - pt has been on Pradaxa currently on hold for surgery Plan is for surgery tomorrow. Pt is high risk for pulmonary complications. Pt has been on Abx since admission and vancomycin was started on Thursday. I am ok with patient having surgery tomorrow and will continue to monitor close. He may need ICU monitoring after surgery. 233 Clinical Quality Measures DVT/VTE Risk/Contraindication: Risk Factor Score Per Nursin RFS Level Per Nursing on Admit: 4+=Very High IRENE VAZ DO Jul 08, 2017 06:45
[2017-07-08] MEDS: ADVAIR HFA 115/21 MCG INHALER 8 GM IH SCH ×2 (06:51→19:49)
[2017-07-08 07:05] LABS: ANION GAP 8 MMOL/L (5-14); BLOOD UREA NITROGEN 27 MG/DL (7-18); BUN/CREATININE RATIO 38; CALCIUM 9.1 MG/DL (8.5-10.1); CARBON DIOXIDE 28 MMOL/L (21-32); CHLORIDE 105 MMOL/L (98-107); CREATININE SERUM 0.72 MG/DL (0.60-1.30); GFR ESTIMATED > 60; GLUCOSE 114 MG/DL (70-105); MAGNESIUM 1.3 MG/DL (1.8-2.4); PHOSPHORUS 3.2 MG/DL (2.3-4.7); POTASSIUM 3.8 MMOL/L (3.6-5.0); SODIUM 141 MMOL/L (135-145)
--- NOTE | 2017-07-08 07:38 | History & Physical-Surgical ---
HPO-Surgical History of Present Illness Chief Complaint: Pt fell around midnight. Pt lives at home with other relatives who help him back to a recliner. Pt has been unable to bear weight. C/o pain to right upper thigh and hip since the fall on 07/03/17. Orthopedics was consulted for a intertrochanteric fracture of the right hip. We have been holding off surgery so effects of pradaxa wears off. Now patient has pneumonia and worsening COPD making risk of surgery even higher. Diagnosis/Surgical Indication: displaced traumatic unstable right intertrochanteric hip fracture Procedure: intramedullary nailing of right hip fracture Date of Surgery: Jul 08, 2017 Weight (Pounds): 124 Height (Feet): 5 Height (Inches): 7.00 Allergies and Home Medications Allergies Coded Allergies: No Known Drug Allergies (Unverified , 11/22/12) Home Medications Albuterol Sulfate 18 Gm Hfa.aer.ad, 2 PUFF IH QID PRN for SHORTNESS OF BREATH, ( Reported) Aspirin 81 Mg Tablet.dr, 81 MG PO DAILY, (Reported) Budesonide/Formoterol Fumarate 10.2 Gm Hfa.aer.ad, 2 PUFF IH BID, (Reported) Cyclobenzaprine HCl 10 Mg Tablet, 10 MG PO TID, (Reported) Dabigatran Etexilate Mesylate 150 Mg Capsule, 150 MG PO BID, (Reported) Diltiazem HCl 240 Mg Capsule.er, 240 MG PO DAILY, (Reported) Doxycycline Monohydrate 100 Mg Capsule, 100 MG PO BID for 10 Days, (Reported) FILLED 06/29/17 #20 FOR A 10 DAY THERAPY Gabapentin 300 Mg Capsule, 300 MG PO TID, (Reported) Hydrocodone/Acetaminophen 1 Each Tablet, 1 TAB PO Q4H PRN for PAIN-MODERATE, ( Reported) Morphine Sulfate 30 Mg Tablet.er, 30 MG PO Q12H, (Reported) Omeprazole 20 Mg Capsule.dr, 20 MG PO DAILY, (Reported) Zolpidem Tartrate 10 Mg Tablet, 10 MG PO HS, (Reported) Past Zwswihc-Rmrlsy-[id number] Hx Patient Social History Living Status: Lives home alone Alcohol Use: Regular Use Number of Drinks Today: BB Alcohol Beverage of Choice: [place] Recreational Drug Use: No Smoking Status: Current Everyday Smoker Type Used: Cigarettes Physical Abuse Screen: No Sexual Abuse: No Recent Foreign Travel: No Contact w/other who traveled: No Recent Hopitalizations: No Recent Infectious Disease Expo: No Immunizations Up To Date Tetanus Booster (TDap): More than 5yrs Date of Pneumonia Vaccine: Jun 14, 2016 Date of Influenza Vaccine: Jun 16, 2016 Surgeries Yes (LEFT CAROTID 2000/STENTS TO L LEG) Appendectomy Respiratory Yes (HX PNEUMONIA) Currently Using CPAP: No Currently Using BIPAP: No Cardiovascular Yes (LEFT CAROTID STENTING IN 1999) Neurological Yes Stroke Reproductive System Hx Reproductive Disorders: No Genitourinary No Gastrointestinal Yes Hiatal Hernia, Ulcer Musculoskeletal Yes Fractures Endocrine History of Endocrine Disorders: No HEENT Loss of Vision: Denies Hearing Impairment: Denies Cancer No Psychosocial History of Psychiatric Problem: No Integumentary History of Skin or Integumenta: No Blood Transfusions History of Blood Disorders: No Family Medical History Significant Family History: No Pertinent Family Hx Exam Vital Signs Vital Signs 07/08/17 07/08/17 04:44 06:52 Temp 97.9 Pulse 89 Resp 16 B/P (MAP) 102/62 Pulse Ox 99 O2 Delivery Vapotherm O2 Flow Rate 20.00 FiO2 45 Capillary Refill : Less Than 3 SecondsLess Than 3 Seconds Labs Laboratory Tests Test 07/07/17 08:01 07/07/17 08:09 07/07/17 11:55 07/07/17 18:05 Range/Units Blood Gas Puncture Site LT BRACH Blood Gas Patient Temperature 98.6 Arterial Blood pH 7.41 7.37-7.43 Arterial Blood Partial Pressure CO2 36 35-45 MMHG Arterial Blood Partial Pressure O2 61 L 79-93 MMHG Arterial Blood HCO3 22 L 23-27 MMOL/L Arterial Blood Total CO2 23.4 21.0-31.0 MMOL/L Arterial Blood Oxygen Saturation 93 L 94-100 % Arterial Blood Base Excess -1.7 -2.5-2.5 MMOL/L Willian Test YES-POS Blood Gas Ventilator Setting NO Blood Gas Inspired Oxygen 65% Lactic Acid Level 0.89 0.50-2.00 MMOL/L Urine Color YELLOW Urine Clarity SLIGHTLY CLOUDY Urine pH 6.5 5-9 Urine Specific [place] 1.010 L 1.016-1.022 Urine Protein 2+ H NEGATIVE Urine Glucose (UA) NEGATIVE NEGATIVE Urine Ketones NEGATIVE NEGATIVE Urine Nitrite NEGATIVE NEGATIVE Urine Bilirubin NEGATIVE NEGATIVE Urine Urobilinogen NORMAL NORMAL MG/DL Urine Leukocyte Esterase 2+ H NEGATIVE Urine RBC (Auto) 5+ H NEGATIVE Urine RBC TNTC H /HPF Urine WBC >100 H /HPF Urine Crystals NONE /LPF Urine Bacteria TRACE /HPF Urine Casts NONE /LPF Urine Mucus NEGATIVE /LPF Urine Culture Indicated YES Activated Partial Thromboplast Time 55 H 24-35 SEC Test 07/08/17 00:30 07/08/17 06:18 Range/Units Activated Partial Thromboplast Time 66 H 63 H 24-35 SEC White Blood Count 8.1 4.3-11.0 10^3/uL Red Blood Count 3.11 L 4.35-5.85 10^6/uL Hemoglobin 8.7 L 13.3-17.7 G/DL Hematocrit 28 L 40-54 % Mean Corpuscular Volume 89 80-99 FL Mean Corpuscular Hemoglobin 28 25-34 PG Mean Corpuscular Hemoglobin Concent 32 32-36 G/DL Red Cell Distribution Width 16.0 H 10.0-14.5 % Platelet Count 164 130-400 10^3/uL Mean Platelet Volume 11.1 H 7.4-10.4 FL Neutrophils (%) (Auto) 74 42-75 % Lymphocytes (%) (Auto) 10 L 12-44 % Monocytes (%) (Auto) 12 0-12 % Eosinophils (%) (Auto) 3 0-10 % Basophils (%) (Auto) 0 0-10 % Neutrophils # (Auto) 6.0 1.8-7.8 X 10^3 Lymphocytes # (Auto) 0.8 L 1.0-4.0 X 10^3 Monocytes # (Auto) 1.0 0.0-1.0 X 10^3 Eosinophils # (Auto) 0.2 0.0-0.3 10^3/uL Basophils # (Auto) 0.0 0.0-0.1 10^3/uL Sodium Level 141 135-145 MMOL/L Potassium Level 3.8 3.6-5.0 MMOL/L Chloride Level 105 98-107 MMOL/L Carbon Dioxide Level 28 21-32 MMOL/L Anion Gap 8 5-14 MMOL/L Blood Urea Nitrogen 27 H 7-18 MG/DL Creatinine 0.72 0.60-1.30 MG/DL Estimat Glomerular Filtration Rate > 60 BUN/Creatinine Ratio 38 Glucose Level 114 H 70-105 MG/DL Calcium Level 9.1 8.5-10.1 MG/DL Phosphorus Level 3.2 2.3-4.7 MG/DL Magnesium Level 1.3 L 1.8-2.4 MG/DL B-Type Natriuretic Peptide 117.7 H <100.0 PG/ML General Appearance: Alert, Oriented X3, Cooperative, No Acute Distress, Other ( cachetic appearance ) HEENT: Atraumatic, PERRLA Respiratory: Other (diminished bilateral lower lobes, mild exp crackles) Cardiovascular: Regular Rate Abdominal: Soft, No Tenderness Extremities: No Clubbing, Normal Pulses (tenderness right hip with shortening and external rotation of right leg) Neuro: Normal Speech Psych/Mental Status: Mental Status NL Assessment/Plan Assessment and Plan A: displaced unstable right intertrochanteric hip fracture COPD Pneumonia hx of stroke and TIA P: intramedullary nailing of right hip fracture, speak with Dr. Adan about proceeding forward with surgery. May possibly have to wait longer to do this for patients lung condition to improve. Patient is in severe pain and will be at risk for skin breakdown due to immobility and severe pain with turning. Unable to increase pain medication due to pulmonary status. Problems: JENNA DEAL APRN Jul 08, 2017 7:38 am
[2017-07-08 08:00] VITALS: BP 119/60
[2017-07-08] MEDS: CYCLOBENZAPRINE 10 MG (FLEXERIL) TAB PO SCH ×3 (09:48→21:19)
[2017-07-08] MEDS: NS IV 1000 ML 1,000 ML IV SCH (09:48)
[2017-07-08] MEDS: AZITHROMYCIN 250 MG TAB (ZITHROMAX) PO SCH (09:48)
[2017-07-08] MEDS: GABAPENTIN 300 MG (NEURONTIN) CAP PO SCH ×3 (09:48→21:19)
[2017-07-08] MEDS: DILTIAZEM 240 MG (CARDIZEM CD) CAP PO SCH (09:48)
[2017-07-08 12:00] VITALS: BP 119/60
[2017-07-08] MEDS ORDERED: VANCOMYCIN 1 GM/NS 250 ML IVPB IV SCH ×2 (12:00)
--- NOTE | 2017-07-08 13:11 | Progress Note (SOAP) ---
Subjective Subjective/Events-last exam This afternoon the patient looks much better than on previous days. He is tentatively scheduled for surgery on Thursday, to give him adequate time to recover and to try and decrease his risks of pulmonary complications. The patient is awake and talkative this afternoon and reports that today he is feeling "much more like himself". His only two complaints today are constipation, for which he has taken miralax in the past, and that he has not been getting Ambien at night, and so he has had a hard time sleeping. No acute events overnight. No other concerns besides those voiced by patient expressed by the nursing staff. Review of Systems Date Seen by Provider: Jul 08, 2017 Time Seen by Provider: 13:00 General: No Chills, No Night Sweats, Fatigue HEENT: No Head Aches, No Visual Changes, No Dysphasia, No Sore Throat Pulmonary: Dyspnea, Cough (loose and slightly productive) Cardiovascular: No: Chest Pain, Palpitations, Lt Headedness Gastrointestinal: Constipation, No: Nausea, Vomiting, Abdominal Pain, Diarrhea Genitourinary: No Retention Musculoskeletal: No: leg pain, foot pain Neurological: No: Numbness, Change in speech, Confusion, Seizures Objective Exam Last Set of Vital Signs Vital Signs Date Time Temp Pulse Resp B/P (MAP) Pulse Ox O2 Delivery O2 Flow Rate FiO2 07/08/17 12:00 98.6 96 18 119/60 91 Vapotherm 45.00 20.00 07/08/17 10:50 45 Capillary Refill : Less Than 3 SecondsLess Than 3 Seconds I&O Intake and Output 07/09/17 00:00 Intake Total 1050 ml Output Total 400 ml Balance 650 ml Intake Oral 0 ml IV Total 1050 ml Output Urine Total 400 ml General: Alert, Oriented X3, Cooperative, Mild Distress HEENT: Atraumatic, Mucous Memb Moist/[place] Neck: Supple, No Thyromegaly Lungs: Other (bilateral wheezing with loose sounding cough) Heart: Regular Rate, Normal S1, Normal S2, No Murmurs Abdomen: Normal Bowel Sounds, Other (abdomen mildly firm and slightly tender) Extremities: No Clubbing, No Cyanosis, No Edema, Other (left foot wrapped, s/p amputation of digit) Skin: No Rashes, No Significant Lesion Neuro: Normal Speech, Normal Tone Psych/Mental Status: Mental Status NL, Mood NL Results/Procedures Lab Laboratory Tests 10/24/17 18:05: Activated Partial Thromboplast Time 55H 07/08/17 00:30: Activated Partial Thromboplast Time 66H 07/08/17 06:18: Activated Partial Thromboplast Time 63H, White Blood Count 8.1, Red Blood Count 3.11L, Hemoglobin 8.7L, Hematocrit 28L, Mean Corpuscular Volume 89, Mean Corpuscular Hemoglobin 28, Mean Corpuscular Hemoglobin Concent 32, Red Cell Distribution Width 16.0H, Platelet Count 164, Mean Platelet Volume 11.1H, Neutrophils (%) (Auto) 74, Lymphocytes (%) (Auto) 10L, Monocytes (%) (Auto) 12, Eosinophils (%) (Auto) 3, Basophils (%) (Auto) 0, Neutrophils # (Auto) 6.0, Lymphocytes # (Auto) 0.8L, Monocytes # (Auto) 1.0, Eosinophils # (Auto) 0.2, Basophils # (Auto) 0.0, Sodium Level 141, Potassium Level 3.8, Chloride Level 105, Carbon Dioxide Level 28, Anion Gap 8, Blood Urea Nitrogen 27H, Creatinine 0.72, Estimat Glomerular Filtration Rate > 60, BUN/Creatinine Ratio 38, Glucose Level 114H, Calcium Level 9.1, Phosphorus Level 3.2, Magnesium Level 1.3L, B- Type Natriuretic Peptide 117.7H Microbiology 07/07/17 Urine Culture - Preliminary, Resulted NO GROWTH Radiology Date of Exam: 07/04/17 PELVIS WITH RIGHT HIP 2-3VIEWS INDICATION: Fall. COMPARISON: None. EXAMINATION: AP view of the pelvis and two views of the right hip were obtained. FINDINGS: There is a nondisplaced intertrochanteric fracture of the proximal right femur. Alignment at the hip joints appears preserved. The left hip appears unremarkable. The sacroiliac joints appear unremarkable. Vascular calcifications are demonstrated. Long stent is seen within the right superficial femoral artery. IMPRESSION: Nondisplaced intra-articular fracture of the proximal right femur. Assessment/Plan Assessment/Plan Plan 67 yo M admitted for Right hip fracture Plan Right intertrochanteric hip fracture - Ortho consulted - Plan for surgery on Thursday - Currently on Heparin as patient is high risk for stroke - Pain controlled with PO meds Acute on Chronic Hypoxic Respiratory Failure - Consult to Dr. Adan for assistance with Pulmonary management - A/A nebs scheduled and PRN CAD s/p CABG - Holding ASA while on Heparin PVD s/p Left toe amputation and R femoral stent h/o CVA: no residual Chronic Atrial Fibrillation - Hold Pradaxa, last dose was Sat 07/04, Continue Heparin FEN: Heart healthy diet DVT PPX: Heparin Dispo: Admit to Med/Surg, plan for surgery on Friday 07/13 Social: Patient will likely need ARF/SNF evaluation after surgery Clinical Quality Measures DVT/VTE Risk/Contraindication: Risk Factor Score Per Nursin RFS Level Per Nursing on Admit: 4+=Very High RAMOS FLORES DO Jul 08, 2017 13:11
[2017-07-08 16:09] VITALS: BP 106/63
[2017-07-08 19:45] VITALS: BP 121/67
--- NOTE | 2017-07-08 20:07 | Progress Note (SOAP) ---
Subjective Subjective/Events-last exam Called to bedside, patient in acute distress, increased shortness of breath and sats dropping to low 80's despite Vapotherm FiO2 increased to 40%. Patient reports feeling short of breath. Nursing reports that patient has been getting progressively more short of breath. Review of Systems Date Seen by Provider: Jul 06, 2017 Time Seen by Provider: 13:00 General: No Chills, No Night Sweats HEENT: No Head Aches, No Eye Pain, No Ear Pain, No Sore Throat Pulmonary: Dyspnea, Cough Cardiovascular: No: Chest Pain, Palpitations, Edema Gastrointestinal: No: Nausea, Vomiting Musculoskeletal: No: neck pain, leg pain Neurological: No: Incoordination, Change in speech, Seizures Objective Exam Last Set of Vital Signs Vital Signs Date Time Temp Pulse Resp B/P (MAP) Pulse Ox O2 Delivery O2 Flow Rate FiO2 07/08/17 19:17 93 Vapotherm 20.00 50 07/08/17 16:09 99.3 96 16 106/63 Capillary Refill : Less Than 3 SecondsLess Than 3 Seconds I&O Intake and Output 07/09/17 00:00 Intake Total 1590 ml Output Total 950 ml Balance 640 ml Intake Oral 540 ml IV Total 1050 ml Output Urine Total 950 ml General: Alert, Cooperative, Moderate Distress HEENT: Atraumatic, Mucous Memb Moist/[place] Neck: Supple, No Thyromegaly Lungs: Other (lung sounds diminished with diffuse wheezing) Heart: Regular Rate, Normal S1, Normal S2 Abdomen: Normal Bowel Sounds, Soft, No Tenderness Extremities: No Clubbing, No Cyanosis, No Edema Skin: No Rashes, No Significant Lesion Neuro: Normal Tone Psych/Mental Status: Mental Status NL, Other (anxious and short of breath) Results/Procedures Lab Laboratory Tests 07/08/17 00:30: Activated Partial Thromboplast Time 66H 07/08/17 06:18: Activated Partial Thromboplast Time 63H, White Blood Count 8.1, Red Blood Count 3.11L, Hemoglobin 8.7L, Hematocrit 28L, Mean Corpuscular Volume 89, Mean Corpuscular Hemoglobin 28, Mean Corpuscular Hemoglobin Concent 32, Red Cell Distribution Width 16.0H, Platelet Count 164, Mean Platelet Volume 11.1H, Neutrophils (%) (Auto) 74, Lymphocytes (%) (Auto) 10L, Monocytes (%) (Auto) 12, Eosinophils (%) (Auto) 3, Basophils (%) (Auto) 0, Neutrophils # (Auto) 6.0, Lymphocytes # (Auto) 0.8L, Monocytes # (Auto) 1.0, Eosinophils # (Auto) 0.2, Basophils # (Auto) 0.0, Sodium Level 141, Potassium Level 3.8, Chloride Level 105, Carbon Dioxide Level 28, Anion Gap 8, Blood Urea Nitrogen 27H, Creatinine 0.72, Estimat Glomerular Filtration Rate > 60, BUN/Creatinine Ratio 38, Glucose Level 114H, Calcium Level 9.1, Phosphorus Level 3.2, Magnesium Level 1.3L, B- Type Natriuretic Peptide 117.7H Microbiology 07/07/17 Blood Culture - Preliminary, Resulted No growth 07/07/17 Urine Culture - Preliminary, Resulted NO GROWTH Radiology Date of Exam: 07/04/17 PELVIS WITH RIGHT HIP 2-3VIEWS INDICATION: Fall. COMPARISON: None. EXAMINATION: AP view of the pelvis and two views of the right hip were obtained. FINDINGS: There is a nondisplaced intertrochanteric fracture of the proximal right femur. Alignment at the hip joints appears preserved. The left hip appears unremarkable. The sacroiliac joints appear unremarkable. Vascular calcifications are demonstrated. Long stent is seen within the right superficial femoral artery. IMPRESSION: Nondisplaced intra-articular fracture of the proximal right femur. Assessment/Plan Assessment/Plan Plan 67 yo M admitted for Right hip fracture Plan Right intertrochanteric hip fracture - Ortho consulted - Plan for surgery pending - Currently on Heparin as patient is high risk for stroke - Pain controlled with PO meds Acute on Chronic Hypoxic Respiratory Failure - Consult to Dr. Adan for assistance with Pulmonary management -O2 sats improved once started on BiPap 08/21 with FiO2 40%, will defer respiratory management to Dr. Adan - A/A nebs scheduled and PRN CAD s/p CABG - Holding ASA while on Heparin PVD s/p Left toe amputation and R femoral stent h/o CVA: no residual Chronic Atrial Fibrillation - Hold Pradaxa, last dose was Sat 07/04, Continue Heparin FEN: Heart healthy diet DVT PPX: Heparin Dispo: Admit to Med/Surg, plan for surgery on hold pending pt's currently precarious pulmonary status Social: Patient will likely need ARF/SNF evaluation after surgery Clinical Quality Measures DVT/VTE Risk/Contraindication: Risk Factor Score Per Nursin RFS Level Per Nursing on Admit: 4+=Very High RAMOS FLORES DO Jul 08, 2017 20:07
--- NOTE | 2017-07-08 20:24 | Progress Note (SOAP) ---
Subjective Subjective/Events-last exam Pt's breathing improved over yesterday. Reports he is feeling very constipated and so his abdomen is sore. Review of Systems Date Seen by Provider: Jul 07, 2017 Time Seen by Provider: 11:30 General: No Chills, No Night Sweats HEENT: No Head Aches, No Eye Pain, No Ear Pain, No Sore Throat Pulmonary: Dyspnea Cardiovascular: No: Chest Pain, Palpitations, Edema Gastrointestinal: Abdominal Pain, Constipation, No: Nausea, Vomiting Genitourinary: No Retention Musculoskeletal: No: neck pain, back pain Neurological: No: Numbness, Incoordination, Seizures Objective Exam Last Set of Vital Signs Vital Signs Date Time Temp Pulse Resp B/P (MAP) Pulse Ox O2 Delivery O2 Flow Rate FiO2 07/08/17 19:17 93 Vapotherm 20.00 50 07/08/17 16:09 99.3 96 16 106/63 Capillary Refill : Less Than 3 SecondsLess Than 3 Seconds I&O Intake and Output 07/09/17 00:00 Intake Total 1590 ml Output Total 950 ml Balance 640 ml Intake Oral 540 ml IV Total 1050 ml Output Urine Total 950 ml General: Alert, Cooperative, Mild Distress HEENT: Atraumatic Neck: Supple, No Thyromegaly Lungs: Other (decreased air exchange and diffuse wheezing) Heart: Regular Rate, Normal S1, Normal S2 Abdomen: Normal Bowel Sounds, Soft, Other (mild LLQ tenderness) Extremities: No Clubbing, No Cyanosis, No Edema Skin: No Rashes, No Significant Lesion Neuro: Normal Tone, Sensation Intact Psych/Mental Status: Mental Status NL, Mood NL Results/Procedures Lab Laboratory Tests 07/08/17 00:30: Activated Partial Thromboplast Time 66H 07/08/17 06:18: Activated Partial Thromboplast Time 63H, White Blood Count 8.1, Red Blood Count 3.11L, Hemoglobin 8.7L, Hematocrit 28L, Mean Corpuscular Volume 89, Mean Corpuscular Hemoglobin 28, Mean Corpuscular Hemoglobin Concent 32, Red Cell Distribution Width 16.0H, Platelet Count 164, Mean Platelet Volume 11.1H, Neutrophils (%) (Auto) 74, Lymphocytes (%) (Auto) 10L, Monocytes (%) (Auto) 12, Eosinophils (%) (Auto) 3, Basophils (%) (Auto) 0, Neutrophils # (Auto) 6.0, Lymphocytes # (Auto) 0.8L, Monocytes # (Auto) 1.0, Eosinophils # (Auto) 0.2, Basophils # (Auto) 0.0, Sodium Level 141, Potassium Level 3.8, Chloride Level 105, Carbon Dioxide Level 28, Anion Gap 8, Blood Urea Nitrogen 27H, Creatinine 0.72, Estimat Glomerular Filtration Rate > 60, BUN/Creatinine Ratio 38, Glucose Level 114H, Calcium Level 9.1, Phosphorus Level 3.2, Magnesium Level 1.3L, B- Type Natriuretic Peptide 117.7H Microbiology 07/07/17 Blood Culture - Preliminary, Resulted No growth 07/07/17 Urine Culture - Preliminary, Resulted NO GROWTH Radiology Date of Exam: 07/04/17 PELVIS WITH RIGHT HIP 2-3VIEWS INDICATION: Fall. COMPARISON: None. EXAMINATION: AP view of the pelvis and two views of the right hip were obtained. FINDINGS: There is a nondisplaced intertrochanteric fracture of the proximal right femur. Alignment at the hip joints appears preserved. The left hip appears unremarkable. The sacroiliac joints appear unremarkable. Vascular calcifications are demonstrated. Long stent is seen within the right superficial femoral artery. IMPRESSION: Nondisplaced intra-articular fracture of the proximal right femur. Assessment/Plan Assessment/Plan Plan 67 yo M admitted for Right hip fracture Plan Right intertrochanteric hip fracture - Ortho consulted - Plan for surgery pending - Currently on Heparin as patient is high risk for stroke - Pain controlled with PO meds Acute on Chronic Hypoxic Respiratory Failure - Consult to Dr. Adan for assistance with Pulmonary management -O2 sats improved once started on BiPap 8 with FiO2 40%, will defer respiratory management to Dr. Adan - A/A nebs scheduled and PRN CAD s/p CABG - Holding ASA while on Heparin PVD s/p Left toe amputation and R femoral stent h/o CVA: no residual Chronic Atrial Fibrillation - Hold Pradaxa, last dose was Sat 07/04, Continue Heparin FEN: Heart healthy diet DVT PPX: Heparin Dispo: Admit to Med/Surg, plan for surgery on hold pending pt's currently precarious pulmonary status Social: Patient will likely need ARF/SNF evaluation after surgery Clinical Quality Measures DVT/VTE Risk/Contraindication: Risk Factor Score Per Nursin RFS Level Per Nursing on Admit: 4+=Very High RAMOS FLORES DO Jul 08, 2017 20:24
[2017-07-08] MEDS: ZOLPIDEM 5 MG (AMBIEN) TAB PO PRN (21:19)
[2017-07-08] MEDS: POLYETHYLENE GLYCOL 17 GM (MIRALAX) PACK PO PRN (21:19)
[2017-07-08] MEDS: LEVOFLOXACIN 750 MG TAB (LEVAQUIN) PO SCH (21:19)
[2017-07-08] MEDS: HEParin DRIP 25000 UNIT/500ML 500 ML IV SCH (21:33)
[2017-07-09] VITALS (7 sets, daily range): BP systolic 112–140; BP diastolic 66–84
[2017-07-09] MEDS: morphine ER 30 MG (MS CONTIN) TAB PO SCH ×2 (01:10→13:25)
[2017-07-09] MEDS: RT-ALBUTEROL/IPRATROPIUM 3 ML (DUONEB) VIAL INH SCH ×6 (02:29→21:50)
[2017-07-09] MEDS: PANTOPRAZOLE 20 MG TABLET (PROTONIX) PO SCH (06:29)
[2017-07-09] MEDS: ADVAIR HFA 115/21 MCG INHALER 8 GM IH SCH ×2 (06:36→18:19)
[2017-07-09 07:54] LABS: BASOPHILS % (AUTO) 0 % (0-10); EOSINOPHILS # (AUTO) 0.3 10^3/uL (0.0-0.3); EOSINOPHILS % (AUTO) 3 % (0-10); LYMPHOCYTES # (AUTO) 1.1 X 10^3 (1.0-4.0); LYMPHOCYTES % (AUTO) 14 % (12-44); MEAN CORPUSCULAR HEMOGLOBIN 28 PG (25-34); MEAN CORPUSCULAR HGB CONC 32 G/DL (32-36); MEAN CORPUSCULAR VOLUME 89 FL (80-99); MEAN PLATELET VOLUME 10.9 FL (7.4-10.4); MONOCYTES # (AUTO) 0.8 X 10^3 (0.0-1.0); MONOCYTES % (AUTO) 11 % (0-12); NEUTROPHILS # (AUTO) 5.3 X 10^3 (1.8-7.8); NEUTROPHILS % (AUTO) 71 % (42-75); PLATELET COUNT 156 10^3/uL (130-400); RED BLOOD COUNT 3.24 10^6/uL (4.35-5.85); RED CELL DISTRIBUTION WIDTH 15.8 % (10.0-14.5); WHITE BLOOD COUNT 7.5 10^3/uL (4.3-11.0)
[2017-07-09] MEDS: AZITHROMYCIN 250 MG TAB (ZITHROMAX) PO SCH (08:04)
[2017-07-09] MEDS: CYCLOBENZAPRINE 10 MG (FLEXERIL) TAB PO SCH ×3 (08:04→20:34)
[2017-07-09] MEDS: DILTIAZEM 240 MG (CARDIZEM CD) CAP PO SCH (08:04)
[2017-07-09] MEDS: GABAPENTIN 300 MG (NEURONTIN) CAP PO SCH ×3 (08:04→20:34)
[2017-07-09] MEDS: NS IV 1000 ML 1,000 ML IV SCH (08:05)
[2017-07-09 08:09] LABS: ANION GAP 9 MMOL/L (5-14); BLOOD UREA NITROGEN 25 MG/DL (7-18); BUN/CREATININE RATIO 41; CALCIUM 9.2 MG/DL (8.5-10.1); CARBON DIOXIDE 27 MMOL/L (21-32); CHLORIDE 104 MMOL/L (98-107); CREATININE SERUM 0.61 MG/DL (0.60-1.30); GFR ESTIMATED > 60; GLUCOSE 106 MG/DL (70-105); MAGNESIUM 1.2 MG/DL (1.8-2.4); PHOSPHORUS 3.4 MG/DL (2.3-4.7); POTASSIUM 3.4 MMOL/L (3.6-5.0); SODIUM 140 MMOL/L (135-145)
--- NOTE | 2017-07-09 10:00 | Progress Note (SOAP) ---
Subjective Subjective/Events-last exam Patient's only complaint today is constipation. He has taken the miralax twice and has not had any results. He would like to know if there is anything else he can try. Surgery time has been moved up to tomorrow at 12:30. Review of Systems Date Seen by Provider: Jul 09, 2017 Time Seen by Provider: 10:10 General: No Chills, No Night Sweats, No Fatigue HEENT: No Head Aches, No Visual Changes, No Dysphasia Pulmonary: Dyspnea, Cough, No Pleuritic Chest Pain Cardiovascular: No: Chest Pain, Palpitations Gastrointestinal: Constipation, No: Nausea, Vomiting Neurological: No: Change in speech, Confusion, Seizures Objective Exam Last Set of Vital Signs Vital Signs Date Time Temp Pulse Resp B/P (MAP) Pulse Ox O2 Delivery O2 Flow Rate FiO2 07/09/17 09:00 Vapotherm 07/09/17 07:25 98.7 104 18 138/83 94 45.00 20.00 07/09/17 06:44 45 Capillary Refill : Less Than 3 SecondsLess Than 3 Seconds I&O Intake and Output 07/10/17 00:00 Intake Total 600 ml Output Total 450 ml Balance 150 ml Intake Oral 50 ml IV Total 550 ml Output Urine Total 450 ml General: Alert, Oriented X3, Cooperative, No Acute Distress HEENT: Atraumatic, EOMI, Mucous Memb Moist/[place] Neck: Supple, No Thyromegaly Lungs: Other (decreased breath sounds in bases with loose cough) Heart: Regular Rate, Normal S1, Normal S2 Abdomen: Normal Bowel Sounds, Soft (mild tenderness with palpation ) Extremities: No Cyanosis, No Edema, No Tenderness/Swelling Skin: No Rashes, No Significant Lesion Neuro: Normal Speech, Normal Tone Psych/Mental Status: Mental Status NL, Mood NL Results/Procedures Lab Laboratory Tests 07/09/17 07:30: White Blood Count 7.5, Red Blood Count 3.24L, Hemoglobin 9.1L, Hematocrit 29L, Mean Corpuscular Volume 89, Mean Corpuscular Hemoglobin 28, Mean Corpuscular Hemoglobin Concent 32, Red Cell Distribution Width 15.8H, Platelet Count 156, Mean Platelet Volume 10.9H, Neutrophils (%) (Auto) 71, Lymphocytes (%) (Auto) 14 , Monocytes (%) (Auto) 11, Eosinophils (%) (Auto) 3, Basophils (%) (Auto) 0, Neutrophils # (Auto) 5.3, Lymphocytes # (Auto) 1.1, Monocytes # (Auto) 0.8, Eosinophils # (Auto) 0.3, Basophils # (Auto) 0.0, Activated Partial Thromboplast Time 50H, Sodium Level 140, Potassium Level 3.4L, Chloride Level 104, Carbon Dioxide Level 27, Anion Gap 9, Blood Urea Nitrogen 25H, Creatinine 0.61, Estimat Glomerular Filtration Rate > 60, BUN/Creatinine Ratio 41, Glucose Level 106H, Calcium Level 9.2, Phosphorus Level 3.4, Magnesium Level 1.2L, B- Type Natriuretic Peptide 90.7 Microbiology 07/07/17 Blood Culture - Preliminary, Resulted No growth 07/07/17 Urine Culture - Final, Complete NO GROWTH Radiology Date of Exam: 07/04/17 PELVIS WITH RIGHT HIP 2-3VIEWS INDICATION: Fall. COMPARISON: None. EXAMINATION: AP view of the pelvis and two views of the right hip were obtained. FINDINGS: There is a nondisplaced intertrochanteric fracture of the proximal right femur. Alignment at the hip joints appears preserved. The left hip appears unremarkable. The sacroiliac joints appear unremarkable. Vascular calcifications are demonstrated. Long stent is seen within the right superficial femoral artery. IMPRESSION: Nondisplaced intra-articular fracture of the proximal right femur. Assessment/Plan Assessment/Plan Plan 67 yo M admitted for Right hip fracture Plan Right intertrochanteric hip fracture - Ortho consulted - Plan for surgery tomorrow at 1230 - Currently on Heparin as patient is high risk for stroke - Pain controlled with PO meds Acute on Chronic Hypoxic Respiratory Failure - Consult to Dr. Adan for assistance with Pulmonary management -O2 sats improved once started on BiPap 08/21 with FiO2 40%, will defer respiratory management to Dr. Adan - A/A nebs scheduled and PRN CAD s/p CABG - Holding ASA while on Heparin PVD s/p Left toe amputation and R femoral stent h/o CVA: no residual Chronic Atrial Fibrillation - Hold Pradaxa, last dose was Sat 07/04, Continue Heparin Constipation -miralax not yielding results -mag citrate x1 bottle today FEN: Heart healthy diet DVT PPX: Heparin Dispo: Admit to Med/Surg, plan for surgery tomorrow at 1230 Social: Patient planning to go to SNF in [place] after discharge Clinical Quality Measures DVT/VTE Risk/Contraindication: Risk Factor Score Per Nursin RFS Level Per Nursing on Admit: 4+=Very High RAMOS FLORES DO Jul 09, 2017 10:00
--- NOTE | 2017-07-09 10:07 | Diagnostic Imaging Report ---
INDICATION: Pneumonia. Frontal chest obtained at 7:48 a.m. and compared with 07/06/2017. Heart is normal in size. There is partial improvement in the infiltrate in the left midlung and base. There is some atelectatic change in the right infrahilar region which is stable and unchanged. There is biapical bullous disease right worse than left. IMPRESSION: Partial improvement in left basilar infiltrate without complete resolution. Unchanged right infrahilar atelectasis. Bullous changes are noted. Dictated by: Dictated on workstation # [id number]
[2017-07-09] MEDS ORDERED: TROUGH ORDER-PHARMACY XX NR (11:00)
[2017-07-09] MEDS ORDERED: VANCOMYCIN 1250 MG/NS 250 ML IVPB IV NR ×2 (12:30)
[2017-07-09] MEDS ORDERED: MAGNESIUM CITRATE 300 ML BTL PO NR (13:00)
[2017-07-09] MEDS: HEParin 1000 UNIT/ML (10ML VIAL) FOR BOLUS IV PRN (16:33)
[2017-07-09] MEDS: ZOLPIDEM 5 MG (AMBIEN) TAB PO PRN (20:33)
[2017-07-09] MEDS: LEVOFLOXACIN 750 MG TAB (LEVAQUIN) PO SCH (20:33)
[2017-07-09] MEDS: POLYETHYLENE GLYCOL 17 GM (MIRALAX) PACK PO PRN (20:33)
[2017-07-09] MEDS: HEParin DRIP 25000 UNIT/500ML 500 ML IV SCH (21:35)
[2017-07-10] VITALS (19 sets, daily range): BP systolic 109–166; BP diastolic 63–105
[2017-07-10] MEDS: morphine ER 30 MG (MS CONTIN) TAB PO SCH ×2 (00:22→16:44)
[2017-07-10] MEDS: VANCOMYCIN 1 GM/NS 250 ML IVPB IV SCH ×4 (00:23→13:16)
[2017-07-10] MEDS: RT-ALBUTEROL/IPRATROPIUM 3 ML (DUONEB) VIAL INH SCH ×6 (02:23→22:16)
[2017-07-10] MEDS: HYDROcodone/APAP 7.5 MG/325 MG (LORTAB, LORCET PLUS) TABLET PO PRN (05:18)
[2017-07-10 05:34] LABS: BASOPHILS % (AUTO) 0 % (0-10); EOSINOPHILS # (AUTO) 0.3 10^3/uL (0.0-0.3); EOSINOPHILS % (AUTO) 5 % (0-10); LYMPHOCYTES # (AUTO) 0.9 X 10^3 (1.0-4.0); LYMPHOCYTES % (AUTO) 12 % (12-44); MEAN CORPUSCULAR HEMOGLOBIN 28 PG (25-34); MEAN CORPUSCULAR HGB CONC 31 G/DL (32-36); MEAN CORPUSCULAR VOLUME 90 FL (80-99); MEAN PLATELET VOLUME 10.7 FL (7.4-10.4); MONOCYTES # (AUTO) 0.8 X 10^3 (0.0-1.0); MONOCYTES % (AUTO) 12 % (0-12); NEUTROPHILS % (AUTO) 71 % (42-75); PLATELET COUNT 188 10^3/uL (130-400); RED BLOOD COUNT 3.29 10^6/uL (4.35-5.85); RED CELL DISTRIBUTION WIDTH 16.1 % (10.0-14.5)
[2017-07-10 06:16] LABS: ANION GAP 8 MMOL/L (5-14); BLOOD UREA NITROGEN 25 MG/DL (7-18); BUN/CREATININE RATIO 40; CALCIUM 9.3 MG/DL (8.5-10.1); CARBON DIOXIDE 30 MMOL/L (21-32); CHLORIDE 104 MMOL/L (98-107); CREATININE SERUM 0.63 MG/DL (0.60-1.30); GFR ESTIMATED > 60; GLUCOSE 113 MG/DL (70-105); MAGNESIUM 1.7 MG/DL (1.8-2.4); PHOSPHORUS 3.6 MG/DL (2.3-4.7); POTASSIUM 3.8 MMOL/L (3.6-5.0); SODIUM 142 MMOL/L (135-145)
[2017-07-10] MEDS: PANTOPRAZOLE 20 MG TABLET (PROTONIX) PO SCH (06:22)
[2017-07-10] MEDS: ADVAIR HFA 115/21 MCG INHALER 8 GM IH SCH (06:31)
--- NOTE | 2017-07-10 08:11 | Diagnostic Imaging Report ---
INDICATION: Cough with shortness of breath. Pneumonia followup. COMPARISON: 07/09/2017. FINDINGS: Decreased pulmonary vascular markings in the lung apices are compatible with underlying emphysema. Bandlike opacities in the right perihilar region are unchanged. Left basilar patchy opacities are improving but persist. No pleural effusion or pneumothorax. Stable cardiomediastinal silhouette. IMPRESSION: Improving but persistent retrocardiac patchy pulmonary opacities which may relate to pneumonia or aspiration. Dictated by: Dictated on workstation # [id number]
--- NOTE | 2017-07-10 08:16 | Pulmonary Progress Note ---
Subjective Time Seen by Provider: 08:18 Subjective/Events-last exam PT currently on BiPAP with 60% oxygen however Sp02 is 98%. Exam Exam Vital Signs Date Time Temp Pulse Resp B/P (MAP) Pulse Ox O2 Delivery O2 Flow Rate FiO2 07/10/17 06:37 88 99 60 07/10/17 06:34 99 NIV Bilevel 60 07/10/17 06:31 88 21 99 60.00 07/10/17 04:00 99.8 90 20 125/69 99 NIV Bilevel 07/10/17 03:52 86 18 98 60.00 07/10/17 02:23 93 22 94 60.00 07/09/17 23:47 94 12 93 60.00 07/09/17 23:46 85 Vapotherm 25.00 70 07/09/17 23:38 97.1 89 18 112/72 94 NIV Bilevel 07/09/17 21:52 89 Vapotherm 25.00 70 07/09/17 21:00 Vapotherm 20.00 55 07/09/17 20:00 98.0 106 18 137/77 94 07/09/17 19:55 22.00 65 07/09/17 18:25 97 Vapotherm 20.00 55 07/09/17 17:00 97.5 100 18 140/74 91 07/09/17 15:26 94 Vapotherm 20.00 55 07/09/17 11:41 99.6 113 18 137/84 94 Vapotherm 45.00 20.00 07/09/17 10:59 97 Vapotherm 20.00 55 07/09/17 09:00 Vapotherm General Appearance: Anxious, Mild Distress HEENT: PERRL/EOMI, Normal ENT Inspection Neck: Full Range of Motion, Normal Inspection Respiratory: Accessory Muscle Use, Crackles, Decreased Breath Sounds, Rhonci Cardiovascular: Regular Rate, Rhythm Capillary Refill: Less Than 3 Seconds Gastrointestinal: normal bowel sounds, non tender, soft, no organomegaly Neurologic/Psychiatric: Alert, Oriented x3 Skin: Normal Color, Warm/Dry Lymphatic: No Adenopathy Results Lab Laboratory Tests 07/09/17 07:30 07/10/17 05:14 Assessment/Plan Assessment/Plan Right intertrochanteric hip fracture -Ortho is following Acute on chronic respiratory failure -SVNs -Daily CXR and Labs -Titrate oxygen as tolerated Pneumonia Vancomycin , Levaquin -Alfaro culture MRSA wound infection HX of Afib - pt has been on Pradaxa currently on hold for surgery Plan is for surgery today around noon. Pt is high risk for pulmonary complications however I don't believe we will get him much better then what he is now. Pt has been on Abx since admission and vancomycin was started on Thursday. CXR does show improvement. I am ok with patient having surgery today and will continue to monitor close. He may need ICU monitoring after surgery. 233 Clinical Quality Measures DVT/VTE Risk/Contraindication: Risk Factor Score Per Nursin RFS Level Per Nursing on Admit: 4+=Very High IRENE VAZ DO Jul 10, 2017 08:15
[2017-07-10] MEDS: CYCLOBENZAPRINE 10 MG (FLEXERIL) TAB PO SCH ×3 (09:43→21:00)
[2017-07-10] MEDS: GABAPENTIN 300 MG (NEURONTIN) CAP PO SCH ×3 (09:43→21:17)
[2017-07-10] MEDS: NS IV 1000 ML 1,000 ML IV SCH ×2 (09:57→20:28)
[2017-07-10] MEDS: DILTIAZEM 240 MG (CARDIZEM CD) CAP PO SCH (10:16)
[2017-07-10] MEDS ORDERED: NEO/POLY/BAC (NEOSPORIN) OINT 15 GM TUBE ONE (11:04)
[2017-07-10] MEDS ORDERED: TROUGH ORDER-PHARMACY XX NR (11:30)
[2017-07-10] MEDS ORDERED: SEVOFLURANE (ULTANE) 15 ML INHAL SOLN ONE ×5 (11:55→15:01)
[2017-07-10] MEDS ORDERED: fentaNYL INJECTION 100 MCG/2 ML AMP ONE ×2 (11:55→13:44)
[2017-07-10] MEDS ORDERED: LIDOCAINE PF 2% 5 ML (XYLOCAINE) VIAL ONE (11:55)
[2017-07-10] MEDS ORDERED: proPOfol 200 MG/20 ML (DIPRIVAN) VIAL IV ONE (11:55)
--- NOTE | 2017-07-10 12:57 | Progress Note-Pre Operative ---
Pre-Operative Progress Note H&P Reviewed The H&P was reviewed, patient examined and no changes noted. Date Seen by Provider: Jul 10, 2017 Time Seen by Provider: 12:56 Date H&P Reviewed: Jul 10, 2017 Time H&P Reviewed: 12:56 Pre-Operative Diagnosis: Displaced intertrochanteric fracture right hip CYDNEY CORMIER DO Jul 10, 2017 12:57
[2017-07-10] MEDS: LACTATED RINGERS 1,000 ML IV SCH ×2 (13:00→14:13)
--- NOTE | 2017-07-10 14:35 | Progress Note-Post Operative ---
Post-Operative Progess Note Surgeon (s)/Aquatics Manager (s) Surgeon CYDNEY CORMIER DO Aquatics Manager: Tanner Zuniga SENIOR AGRICULTURAL ASSISTANTJoana Pre-Operative Diagnosis Displaced intertrochanteric fracture right hip Post-Operative Diagnosis same Procedure & Operative Findings Date of Procedure 07/10/17 Procedure Performed/Findings Intramedullary nailimg right hip intertrochanteric fracture Anesthesia Type general Estimated Blood Loss Estimated blood loss (mL): 150 ml Specimens/Packing Specimens Removed none CYDNEY CORMIER DO Jul 10, 2017 14:35
[2017-07-10] MEDS ORDERED: morphine INJ 10 MG/ML 1ML (SYR OR VIAL) ONE (14:48)
[2017-07-10] MEDS: morphine INJ 10 MG/ML 1ML (SYR OR VIAL) IVP PRN ×3 (15:01→15:13)
[2017-07-10] MEDS ORDERED: ONDANSETRON 4 MG/2 ML (SDV) Z0FRAN IVP PRN (15:15)
[2017-07-10] MEDS: RT-ALBUTEROL/IPRATROPIUM 3 ML (DUONEB) VIAL INH PRN (16:58)
--- NOTE | 2017-07-10 19:13 | Diagnostic Imaging Report ---
INDICATION: Right proximal femoral fracture. EXAMINATION: Intraoperative views were obtained during open reduction internal fixation of intertrochanteric fracture of right proximal femur. The alignment is anatomic with orthopedic hardware in the femoral neck and proximal shaft. Stents are visualized over the right upper medial thigh. 1 minute and 35 seconds of fluoroscopy time was used in surgery. IMPRESSION: Anatomic alignment after open reduction internal fixation of right proximal femoral fracture, as above. Dictated by: Dictated on workstation # [id number]
[2017-07-10] MEDS: DABIGATRAN 150 MG (PRADAXA) CAPSULE PO SCH (21:16)
[2017-07-10] MEDS: oxyCODONE/APAP 5/325MG (PERCOCET 5) TABLET PO PRN (21:17)
[2017-07-10] MEDS: LEVOFLOXACIN 750 MG TAB (LEVAQUIN) PO SCH (21:17)
--- NOTE | 2017-07-10 21:53 | Progress Note (SOAP) ---
Subjective Subjective/Events-last exam Plan for surgery at 1230. NPO. Will transfer to ICU post op. Review of Systems Date Seen by Provider: Jul 10, 2017 Time Seen by Provider: 08:00 General: No Chills, No Night Sweats HEENT: No Head Aches, No Eye Pain, No Dysphasia Pulmonary: Dyspnea, Cough Cardiovascular: No: Chest Pain, Palpitations Gastrointestinal: No: Nausea, Vomiting Neurological: No: Confusion, Seizures Objective Exam Last Set of Vital Signs Vital Signs Date Time Temp Pulse Resp B/P (MAP) Pulse Ox O2 Delivery O2 Flow Rate FiO2 07/10/17 19:46 129 23 96 70.00 07/10/17 19:33 Vapotherm 65 07/10/17 17:30 121/104 07/10/17 15:45 99.1 Capillary Refill : Less Than 3 SecondsLess Than 3 Seconds I&O Intake and Output 07/11/17 00:00 Intake Total 250 ml Output Total 840 ml Balance -590 ml Intake Oral 0 ml IV Total 250 ml Output Urine Total 690 ml Estimated Blood Loss 150 ml General: Alert, Oriented X3, Cooperative HEENT: Atraumatic, EOMI, Mucous Memb Moist/[place] Neck: Supple, No Thyromegaly Lungs: Other (diminished in bases) Heart: Regular Rate, Normal S1, Normal S2 Abdomen: Normal Bowel Sounds, Soft Extremities: No Clubbing, No Cyanosis Skin: No Rashes, No Significant Lesion Neuro: Normal Gait, Normal Tone Psych/Mental Status: Mental Status NL, Mood NL Results/Procedures Lab Laboratory Tests 07/09/17 22:55: Activated Partial Thromboplast Time 70H 07/10/17 05:14: Activated Partial Thromboplast Time 60H, White Blood Count 7.0, Red Blood Count 3.29L, Hemoglobin 9.1L, Hematocrit 30L, Mean Corpuscular Volume 90, Mean Corpuscular Hemoglobin 28, Mean Corpuscular Hemoglobin Concent 31L, Red Cell Distribution Width 16.1H, Platelet Count 188, Mean Platelet Volume 10.7H, Neutrophils (%) (Auto) 71, Lymphocytes (%) (Auto) 12, Monocytes (%) (Auto) 12, Eosinophils (%) (Auto) 5, Basophils (%) (Auto) 0, Neutrophils # (Auto) 5.0, Lymphocytes # (Auto) 0.9L, Monocytes # (Auto) 0.8, Eosinophils # (Auto) 0.3, Basophils # (Auto) 0.0, Sodium Level 142, Potassium Level 3.8, Chloride Level 104, Carbon Dioxide Level 30, Anion Gap 8, Blood Urea Nitrogen 25H, Creatinine 0.63, Estimat Glomerular Filtration Rate > 60, BUN/Creatinine Ratio 40, Glucose Level 113H, Calcium Level 9.3, Phosphorus Level 3.6, Magnesium Level 1.7L, B- Type Natriuretic Peptide 93.8 07/10/17 11:15: Vancomycin Level Trough 10.6 Microbiology 07/07/17 Blood Culture - Preliminary, Resulted No growth 07/08/17 MRSA Screen - Final, Complete MRSA not isolated 07/07/17 Urine Culture - Final, Complete NO GROWTH Radiology Date of Exam: 07/04/17 PELVIS WITH RIGHT HIP 2-3VIEWS INDICATION: Fall. COMPARISON: None. EXAMINATION: AP view of the pelvis and two views of the right hip were obtained. FINDINGS: There is a nondisplaced intertrochanteric fracture of the proximal right femur. Alignment at the hip joints appears preserved. The left hip appears unremarkable. The sacroiliac joints appear unremarkable. Vascular calcifications are demonstrated. Long stent is seen within the right superficial femoral artery. IMPRESSION: Nondisplaced intra-articular fracture of the proximal right femur. Assessment/Plan Assessment/Plan Plan 67 yo M admitted for Right hip fracture Plan Right intertrochanteric hip fracture - Ortho consulted - Plan for surgery at 1230 - Currently on Heparin as patient is high risk for stroke - Pain controlled with PO meds Acute on Chronic Hypoxic Respiratory Failure - Consult to Dr. Adan for assistance with Pulmonary management -O2 sats improved once started on BiPap 08/21 with FiO2 40%, will defer respiratory management to Dr. Adan - A/A nebs scheduled and PRN CAD s/p CABG - Holding ASA while on Heparin PVD s/p Left toe amputation and R femoral stent h/o CVA: no residual Chronic Atrial Fibrillation - Hold Pradaxa, last dose was Sat 07/04, Continue Heparin. Will resume Pradaxa after surgery. FEN: Heart healthy diet DVT PPX: Heparin Dispo: Admit to Med/Surg, plan for surgery at 1230 then to ICU post op per Social: Patient planning to go to SNF in [place] at discharge Clinical Quality Measures DVT/VTE Risk/Contraindication: Risk Factor Score Per Nursin RFS Level Per Nursing on Admit: 4+=Very High RAMOS FLORES DO Jul 10, 2017 21:53
--- NOTE | 2017-07-10 22:39 | OPERATIVE REPORT ---
DATE OF SERVICE: 07/10/2017 PREOPERATIVE DIAGNOSIS: Displaced intertrochanteric fracture, right hip. POSTOPERATIVE DIAGNOSIS: Displaced intertrochanteric fracture, right hip. PROCEDURE: Intramedullary nailing, intertrochanteric fracture of right hip. SURGEON: Cydney Pedro DO. RUBBER INSULATOR: TALIB Seay. CENTRAL SUPPLY NURSE DUTIES: Tanner Zuniga, certified surgical assistant, was utilized throughout the entire procedure for patient positioning on the fracture table, assistance in fracture reduction, retraction of soft tissues, assistance in placement of metallic fixation devices, wound closure, dressing application, and patient transfer. ANESTHESIA: General. ESTIMATED BLOOD LOSS: 150 mL. INDICATION AND FINDINGS: The patient is a 67-year-old male who fell at home one week prior to this date. He continued to have persistent pain and was evaluated in the emergency room the following day. X-rays reveal a displaced intertrochanteric fracture. The patient has a chronic history of COPD. He has a chronic history of atrial fibrillation. He is on Pradaxa anticoagulant and presented with severe breathing problems as well as pneumonia. The patient was followed by the semiconductor assembler, Dr. Felix Adan, who had initially hoped to take the patient to surgery on the Thursday following this Thursday traumatic event. His lung condition was not stable enough to allow surgery on that date. He was taken to surgery on today's date where under a general anesthesia, an intramedullary nailing was performed of the right hip, securing intertrochanteric fracture without complication, utilizing the [employer] trochanteric fixation nail with an 380, 11 mm nail was utilized with a 95 mm helical blade. The patient had been on a heparin drip throughout his hospital stay in attempt to prevent complications of his immobilization. Despite this, he did not have any significant bleeding. A spinal block was not attempted based on his continuous ongoing heparin drip. PROCEDURE IN DETAIL: The patient was transported to the operating room where general inhalation anesthetic was administered. The patient was then placed supine upon the fracture table. The left lower extremity was draped out of the operating field. Traction was applied to the left lower extremity with the hip in slight flexion and adduction. The C-arm was used to verify fracture reduction with traction and internal rotation of the leg. A ChloraPrep and sterile drape of the right hip and right lower extremity was performed. A longitudinal incision was then made proximal to the greater trochanter. The incision was deepened with electrocautery exposing the tip of the greater trochanter. A guide pin was then placed under fluoroscopic control through the tip of the greater trochanter into the proximal femur. This position of the guidepin was verified fluoroscopically in the AP and lateral plane. The proximal femur was then overdrilled. A guidepin was then placed across the fracture site down to the level of the superior pole of the patella. This measured 380 mm. A 380 mm eugene was then obtained. The outrigger guide was attached. This was advanced through the animal shelter supervisor hole in the proximal femur across the fracture site into the femoral shaft. Through the outrigger guide, the lateral aspect of the thigh was marked. This was opened sharply 2.5 cm. The iliotibial band was divided. The outrigger guide was advanced towards the lateral cortex of the femur. Under fluoroscopic control, a guidepin was placed through the lateral femoral cortex across the femoral neck and in the femoral head with pressure applied to the femoral neck to correct mild anterior angulation. After satisfactory placement of the guidepin, the lateral cortex was overdrilled. An additional reamer was then advanced into the junction of the femoral head and neck over the guide pin. A 95 mm helical blade was then impacted into position. The screw and the eugene were then secured onto the trochanteric fixation nail. The outrigger guide was removed. Repeat x-rays revealed satisfactory position and alignment of the internal fixation as well as fracture reduction. The wounds were irrigated extensively with normal saline solution. The iliotibial band at the distal incision was closed with interrupted #1 Vicryl suture. The fascia overlying the gluteus muscles were closed with 0 Vicryl suture. The subcutaneous tissues were closed with 0 and 2-0 Vicryl suture and the skin was closed with stainless steel yeison. The patient was awakened and was transported to ICU in stable condition. Job ID: [id number] DocumentID: [id number] Dictated Date: 07/10/2017 14:41:06 Animal Shelter Supervisor Date: 07/10/2017 21:30:33 Dictated By: CYDNEY PEDRO DO
[2017-07-11] VITALS (39 sets, daily range): BP systolic 83–143; BP diastolic 61–96
[2017-07-11] MEDS: VANCOMYCIN 1 GM/NS 250 ML IVPB IV SCH ×4 (00:34→15:18)
[2017-07-11] MEDS: morphine ER 30 MG (MS CONTIN) TAB PO SCH ×2 (01:13→15:18)
[2017-07-11] MEDS: RT-ALBUTEROL/IPRATROPIUM 3 ML (DUONEB) VIAL INH SCH ×6 (02:25→22:11)
[2017-07-11 05:30] LABS: BASOPHILS % (AUTO) 0 % (0-10); EOSINOPHILS # (AUTO) 0.3 10^3/uL (0.0-0.3); EOSINOPHILS % (AUTO) 4 % (0-10); LYMPHOCYTES # (AUTO) 0.6 X 10^3 (1.0-4.0); MEAN CORPUSCULAR HEMOGLOBIN 28 PG (25-34); MEAN CORPUSCULAR HGB CONC 31 G/DL (32-36); MEAN CORPUSCULAR VOLUME 91 FL (80-99); MEAN PLATELET VOLUME 11.1 FL (7.4-10.4); MONOCYTES # (AUTO) 0.7 X 10^3 (0.0-1.0); MONOCYTES % (AUTO) 9 % (0-12); NEUTROPHILS # (AUTO) 6.5 X 10^3 (1.8-7.8); NEUTROPHILS % (AUTO) 80 % (42-75); PLATELET COUNT 165 10^3/uL (130-400); RED CELL DISTRIBUTION WIDTH 15.7 % (10.0-14.5); WHITE BLOOD COUNT 8.2 10^3/uL (4.3-11.0)
[2017-07-11 05:31] LABS: LYMPHOCYTES % (AUTO) 8 % (12-44)
[2017-07-11 06:00] LABS: ANION GAP 10 MMOL/L (5-14); BLOOD UREA NITROGEN 29 MG/DL (7-18); BUN/CREATININE RATIO 40; CALCIUM 8.9 MG/DL (8.5-10.1); CARBON DIOXIDE 28 MMOL/L (21-32); CHLORIDE 103 MMOL/L (98-107); CREATININE SERUM 0.72 MG/DL (0.60-1.30); GFR ESTIMATED > 60; GLUCOSE 98 MG/DL (70-105); MAGNESIUM 1.5 MG/DL (1.8-2.4); PHOSPHORUS 3.7 MG/DL (2.3-4.7); SODIUM 141 MMOL/L (135-145)
[2017-07-11] MEDS: MAGNESIUM 1 GM/100 ML IVPB 100 ML IV SCH ×2 (06:31→07:57)
[2017-07-11] MEDS: ADVAIR HFA 115/21 MCG INHALER 8 GM IH SCH ×3 (08:00→18:38)
[2017-07-11] MEDS: PANTOPRAZOLE 20 MG TABLET (PROTONIX) PO SCH (08:00)
[2017-07-11] MEDS: CYCLOBENZAPRINE 10 MG (FLEXERIL) TAB PO SCH ×3 (08:50→21:28)
[2017-07-11] MEDS: DABIGATRAN 150 MG (PRADAXA) CAPSULE PO SCH ×2 (08:50→21:29)
[2017-07-11] MEDS: GABAPENTIN 300 MG (NEURONTIN) CAP PO SCH ×3 (08:50→21:28)
[2017-07-11] MEDS: DILTIAZEM 240 MG (CARDIZEM CD) CAP PO SCH (08:50)
--- NOTE | 2017-07-11 10:45 | Progress Note (SOAP) ---
Subjective Date Seen by Provider: Jul 11, 2017 Time Seen by Provider: 10:41 Subjective/Events-last exam POD #1 s/p right TFN. Denies pain anywhere. Is also being treated for pneumonia. Overall he is doing well and has no complaints, family in the room without questions. Review of Systems Pulmonary: Dyspnea, Cough Cardiovascular: No: Chest Pain Gastrointestinal: No: Nausea, Vomiting Musculoskeletal: No: leg pain Objective Exam Vital Signs Date Time Temp Pulse Resp B/P (MAP) Pulse Ox O2 Delivery O2 Flow Rate FiO2 07/11/17 10:16 94 Vapotherm 15.00 60 07/11/17 09:00 118 29 128/84 98 Vapotherm 60.00 15.00 07/11/17 08:30 97.5 07/11/17 08:00 Vapotherm 15.00 60 07/11/17 08:00 110 29 115/73 100 Vapotherm 60.00 15.00 07/11/17 07:00 108 12 111/74 95 Vapotherm 60.00 15.00 07/11/17 07:00 106 07/11/17 06:58 Vapotherm 60.00 15.00 07/11/17 06:14 100 Vapotherm 15.00 60 07/11/17 06:12 101 14 100 70.00 07/11/17 06:00 106 17 116/79 100 OxyMask 5.00 07/11/17 05:00 108 115/83 100 OxyMask 5.00 07/11/17 04:00 96.6 110 12 111/84 100 OxyMask 5.00 07/11/17 03:49 112 25 100 70.00 07/11/17 03:00 105 17 119/85 100 OxyMask 5.00 07/11/17 02:26 107 26 100 70.00 07/11/17 02:00 107 13 121/91 100 OxyMask 5.00 07/11/17 01:00 116 07/11/17 01:00 115 14 138/93 100 OxyMask 5.00 07/11/17 00:05 113 13 100 70.00 07/11/17 00:00 97.2 115 11 130/89 100 OxyMask 5.00 07/10/17 23:00 122 15 120/87 100 OxyMask 5.00 07/10/17 22:17 126 16 100 70.00 07/10/17 22:00 128 28 124/67 100 OxyMask 5.00 07/10/17 21:00 130 21 136/70 100 OxyMask 5.00 07/10/17 20:15 Vapotherm 25.00 65 07/10/17 20:00 100.1 130 13 133/71 100 OxyMask 5.00 07/10/17 19:46 129 23 96 70.00 07/10/17 19:33 89 Vapotherm 20.00 65 07/10/17 19:00 131 07/10/17 19:00 126 15 111/78 100 OxyMask 5.00 07/10/17 17:30 121 13 121/104 100 OxyMask 5.00 07/10/17 17:15 115 20 125/97 100 OxyMask 5.00 07/10/17 17:00 114 10 109/87 99 OxyMask 5.00 07/10/17 16:58 100 Vapotherm 20.00 65 07/10/17 16:45 116 15 115/79 93 OxyMask 5.00 07/10/17 16:30 112 16 126/82 100 OxyMask 5.00 07/10/17 16:30 112 18 126/97 100 OxyMask 5.00 07/10/17 16:15 105 20 143/91 95 OxyMask 5.00 07/10/17 16:05 104 07/10/17 16:00 166/105 98 OxyMask 5.00 07/10/17 15:45 99.1 104 21 132/89 100 OxyMask 5.00 07/10/17 12:00 96.8 109 16 153/73 90 NIV Bilevel 07/10/17 11:03 91 Vapotherm 25.00 70 I & O 07/12/17 07:00 Intake Total 92 ml Balance 92 ml Capillary Refill : Less Than 3 SecondsLess Than 3 Seconds General Appearance: No Apparent Distress Peripheral Pulses: 2+ Dorsalis Pedis (R) Extremity: Non Tender, No Calf Tenderness, No Pedal Edema, No Calf Tenderness, No Pedal Edema, Other (right femur bandage clean and dry. bandage to left foot) Neurologic/Psychiatric: Alert, Oriented x3, No Motor/Sensory Deficits Skin: Warm/Dry Results Lab Laboratory Tests 07/10/17 11:15: Vancomycin Level Trough 10.6 07/11/17 04:54: White Blood Count 8.2, Red Blood Count 2.90L, Hemoglobin 8.2L, Hematocrit 26L, Mean Corpuscular Volume 91, Mean Corpuscular Hemoglobin 28, Mean Corpuscular Hemoglobin Concent 31L, Red Cell Distribution Width 15.7H, Platelet Count 165, Mean Platelet Volume 11.1H, Neutrophils (%) (Auto) 80H, Lymphocytes (%) (Auto) 8L, Monocytes (%) (Auto) 9, Eosinophils (%) (Auto) 4, Basophils (%) (Auto) 0, Neutrophils # (Auto) 6.5, Lymphocytes # (Auto) 0.6L, Monocytes # (Auto) 0.7, Eosinophils # (Auto) 0.3, Basophils # (Auto) 0.0, Activated Partial Thromboplast Time 46H, Sodium Level 141, Potassium Level 4.0, Chloride Level 103 , Carbon Dioxide Level 28, Anion Gap 10, Blood Urea Nitrogen 29H, Creatinine 0.72, Estimat Glomerular Filtration Rate > 60, BUN/Creatinine Ratio 40, Glucose Level 98, Calcium Level 8.9, Phosphorus Level 3.7, Magnesium Level 1.5L, B-Type Natriuretic Peptide 110.1H Microbiology 07/07/17 Blood Culture - Preliminary, Resulted No growth 07/08/17 MRSA Screen - Final, Complete MRSA not isolated 07/07/17 Urine Culture - Final, Complete NO GROWTH Assessment/Plan Assessment/Plan Assess & Plan/Chief Complaint Assessment: POD #1 s/p right TFN pneumonia Plan: WBAT to RLE continue current care per pulmonolgy and IM has resumed pradaxa, scd pain control Clinical Quality Measures DVT/VTE Risk/Contraindication: Risk Factor Score Per Nursin RFS Level Per Nursing on Admit: 4+=Very High RADHA DOWD Jul 11, 2017 10:45
--- NOTE | 2017-07-11 10:47 | Anesthesia-General Post-Op ---
General Patient Condition Mental Status/LOC: Same as Preop Cardiovascular: Satisfactory Nausea/Vomiting: Absent Respiratory: Satisfactory Pain: Controlled Complications: Absent Post Op Complications Complications None Follow Up Care/Instructions Patient Instructions None needed. Anesthesia/Patient Condition Patient Condition Patient is doing well, no complaints, stable vital signs, no apparent adverse anesthesia problems. No complications reported per nursing. PAULINO ARTHUR CRNA Jul 11, 2017 10:47
--- NOTE | 2017-07-11 12:43 | Occupational Therapy Eval ---
OT Evaluation-General/PLF Medical Diagnosis Admission Date Jul 04, 2017 at 17:36 Medical Diagnosis: R hip fx Onset Date: Jul 04, 2017 Therapy Diagnosis Therapy Diagnosis: decr self care, decr func mob, weakness Height/Weight Height (Feet): 5 Height (Inches): 7.00 Weight (Pounds): 124 Precautions Precautions/Isolations: Contact Isolation, Fall Prevention Safety Interventions: Bed Exit Alarm Weight Bear Status Weight Bearing Restriction: Weight Bearing/Tolerated Location Restriction: R LE Referral Physician: Mayela Referral Reason: Evaluation/Treatment Medical History Pertinent Medical History: Atrial Fib, CABG, CAD, COPD (home O2 at 3L/min), CVA (hx 2 CVAs), HTN, PVD (L toe amputation), Smoking Additional Medical History MRSA in wounds on L foot (toes and heel). Current History Tripped and fell at home. ORIF with WBAT on 07-10-17 Reviewed History: Yes Social History Home: Single Level Current Living Status: Children Steps Into Home: 2 ADL-Prior Level of Function ADL PLOF Comments Pt reported that he has been able to manage all of his basic self care needs, including putting slipper on L foot. He is retired and no longer drives. He did not use an AD to walk in his home and generally managed O2 tubing without difficulty OT Current Status Subjective Pt seen in room, up in bed, agreeable to OT. Pt reported pain 0/10. Appearance Alert, cooperative Mental Status/Objective Attachments: Central Line, Zayas Catheter, Oxygen (Vapotherm), SCD's, Telemetry Current Glasses/Contacts: Yes Hearing Aids: No Dentures/Partials: No Hand Dominance: Right Upper Extremity ROM Grossly WFL, with some limitation R shoulder (pt reported he fell on shoulder) Upper Extremity Strength grossly 4-/5 R, 4/5 L Pt reported that he uses R hand more as an assist and now feeds himself with his L hand (after CVA) ADL-Treatment ADL-Current Pt has been able to feed himself and get a drink if items are within reach but hasn't had much of an appetite. He has not been up to bathroom since surgery or out of bed. Functional [place] Measure 0=Not Assessed/NA 4=Minimal Assistance 1=Total Assistance 5=Supervision or Setup 2=Maximal Assistance 6=Modified [place] 3=Moderate Assistance 7=Complete IndependenceIRFPAI Quality Coding Scale 6 Independent with activity with or without an assistive device 5 Patient requires set up or clean up by helper. Patient completes activity by themselves 4 Supervision or touching assist (CGA). Reading provide cues , steadying assist 3 The helper provides less than half the effort to complete the activity 2 The helper provides more than half the effort to complete the activity 1 Dependent. The helper does all the effort to complete an activity 7 Patient refused to complete or attempt activity 9 The patient did not perform the activity before the current illness or injury 88 Not attempted due to Medical conditions or safety concerns Education OT Patient Education: Purpose of tx/functional activities, Rehab process ( talked with family about bringing in clothes) Teaching Recipient: Patient Teaching Methods: Discussion Response to Teaching: Verbalize Understanding OT It Service Technician Goals It Service Technician Goals Time Frame: Jul 17, 2017 Eating (FIM): 6 Grooming(FIM): 5 Bathing(FIM): 4 Upper Body Dressing(FIM): 5 Lower Body Dressing(FIM): 4 Toileting(FIM): 3 Toilet/Commode Transfer(FIM): 3 Shower Transfer(FIM): 4 1=Demonstrate adherence to instructed precautions during ADL tasks. 2=Patient will verbalize/demonstrate understanding of assistive devices/ modifications for ADL. 3=Patient will improve strength/tolerance for activity to enable patient to perform ADL's. OT Education/Plan Problem List/Assessment Assessment: Decreased Activ Tolerance, Decreased UE Strength, Dependent Transfers, Impaired Self-Care Skills, Restricted Funct UE ROM Pt would benefit from skilled OT to increase his independence in basic self care and to decrease caregiver burden Discharge Recommendations Plan/Recommendations: Continue POC Therapy D/C Recommendations: Long Term (TCU/NH) (OT) Target Placement recommend SNF OT due to decreased activity tolerance from COPD Treatment Plan/Plan of Care Patient would benefit from OT for education, treatment and training to promote independence in ADL's, mobility, safety and/or upper extremity function for ADL' s. Plan of Care: ADL Retraining, Functional Mobility, UE Funct Exercise/Act Treatment Duration: Jul 17, 2017 Frequency: 5 times per week Estimated Hrs Per Day: .5 hour per day Agreement: Yes Rehab Potential: Fair Time/GCodes Start Time: 12:05 Stop Time: 12:15 Total Time Billed (hr/min): 10 Billed Treatment Time visit, 10 minutes evaluation moderate intensity GARIMA TAVERA OT Jul 11, 2017 12:43
--- NOTE | 2017-07-11 12:44 | Physical Therapy Evaluation ---
PT Evaluation-General Medical Diagnosis Admission Date Jul 04, 2017 at 17:36 Medical Diagnosis: (R) hip fracture Onset Date: Jul 03, 2017 Therapy Diagnosis Therapy Diagnosis: limited mobility Height/Weight Height (Feet): 5 Height (Inches): 7.00 Weight (Pounds): 124 Precautions Precautions/Isolations: Contact Isolation, Fall Prevention Weight Bear Status Right Lower Extremity: Right Touch Toe Bearing Left Lower Extremity: Left Full Weight Bearing Referral Physician: Reagan Pedro DO Reason for Referral: Evaluation/Treatment Medical History Pertinent Medical History: Atrial Fib, CAD, COPD, CVA, HTN, PVD Additional Medical History 2 CVAs (2012 and 2014) with multiple TIAs prior to the first CVA. Current History Fell at home on 07/03/17 resulting in a (R) intertrochanteric femur fracture. Pt had to wait for Predaxa to be out of system before surgery could be performed. (R) transfemoral nail placed on 07/08/17. Reviewed History: Yes Social History Home: Single Level Current Living Status: Other Family Entry Into Home: Stairs With Railing Prior/Core FIM Prior Level of Function Functional [place] Measure 0=Not Assessed/NA 4=Minimal Assistance 1=Total Assistance 5=Supervision or Setup 2=Maximal Assistance 6=Modified [place] 3=Moderate Assistance 7=Complete [place] Bed Mobility: 6 Transfers (B,C,W/C) (FIM): 6 Gait: 3 Per family, he ambulated with a walker or (I) using furniture to steady himself. He had difficulty using the walker due to needing oxygen constantly, and the oxygen line would tangle in the wheels/legs of the walker. PT Evaluation-Current Subjective Pt reports (R) hip pain 4/10 prior to beginning (R) LE movement. Pain Numeric Pain Scale: 4 Location: Right Location Body Site: Hip Pain Description: Ache, Dull Pt/Family Goals Possible transfer to [place] [facility]. Objective Patient Orientation: Person, Place, Time, Situation Problem Solving: Good Attachments: Oxygen, Zayas Catheter, IV ROM/Strength ROM Upper Extremities WFL ROM Lower Extremities WFL Strength Lower Extremities 3/5 (R) hip and knee MMT. 4/5 (L) hip and knee. Integumentary/Posture Bowel Incontinence: No Bladder Incontinence: Zayas Cath Neuromuscular (Tone, Coordination, Reflexes) intact Sensory Vision: Wears Glasses Hearing: Functional Hand Dominance: Right Sensation Right Upper Extremit: Intact Sensation Left Upper Extremity: Intact Sensation Right Lower Extremit: Intact Sensation Left Lower Extremity: Intact Transfers Functional [place] Measure 0=Not Assessed/NA 4=Minimal Assistance 1=Total Assistance 5=Supervision or Setup 2=Maximal Assistance 6=Modified [place] 3=Moderate Assistance 7=Complete [place] Transfers (B, C, W/C) (FIM): 2 Scootin Rollin Supine to/from Sit: 2 Sit to/from Stand: 2 Unable to attain full standing position due to (R) hip pain. Gait Mode of Locomotion: Walk Anticipated Mode of Locomotion: Walk Gait (FIM): 0 Distance (FIM): 0=does not occure Balance Sitting Static: Fair Sitting Dynamic: Poor Assessment/Needs Pt has weakness in the (R) LE, pain limiting (R) LE ROM tolerance, poor strength during transfers, and unable to stand due to pain. Pt to benefit from PT to improve strength, balance, transfers, and return to ambulation with reduced fall risk. Rehab Potential: Fair PT Short Term Goals Short Term Goals Time Frame: Jul 25, 2017 Transfers (B,C,W/C) (FIM): 4 Gait (FIM): 3 Distance (FIM): 3=150 ft Gait Distance Comment: 100ft Gait Level of Assist: 3 Gait Assistive Device: FWW Stairs (FIM): 2 # of Steps: 1 Stairs Level of Assist: 2 PT Account Contact Associate Goals Senior Care Goals PT Account Contact Associate Goals Time Frame: Aug 08, 2017 Transfers (B,C,W/C) (FIM): 6 Gait (FIM): 6 Gait distance (FIM): 3=150 ft Distance: 200ft Gait Level of Assist: 6 Gait Assistive Device: FWW Stairs (FIM): 4 # of Steps: 4 Stairs Level Of Assist: 4 PT Plan Problem List Problem List: Activity Tolerance, Functional Strength, Safety, Balance, Gait, Transfer, Bed Mobility Treatment/Plan Treatment Plan: Continue Plan of Care Treatment Plan: Bed Mobility, Concurrent Therapy, Education, Functional Activity Vasiliy, Functional Strength, Gait, Safety, Therapeutic Exercise, Transfers Treatment Duration: Aug 08, 2017 Frequency: 11 times per week Estimated Hrs Per Day: 1 hour per day Patient and/or Family Agrees t: Yes Time/GCodes Time In: 1215 Time Out: 1230 Total Billed Treatment Time: 15 Total Billed Treatment 1, evmodc 15 MENDOZA ADRIAN PT Jul 11, 2017 12:44
--- NOTE | 2017-07-11 12:53 | Diagnostic Imaging Report ---
INDICATION: Pneumonia, followup. TECHNIQUE: Single view chest 5:24 AM. CORRELATION STUDY: 07/10/2017 FINDINGS: Heart size and mediastinum generally stable. Abnormal fullness and irregularity with linear parenchymal density of the right hilum unchanged. There does appear to be increasing infiltrate-like density of the left lung base likely retrocardiac region as well as over the lingula. Fibrotic and bullous changes about the lung apices particularly on the right. IMPRESSION: 1. Increasing infiltrate suggested about the left lung base with continued abnormal density of the right perihilar region. Dictated by: Dictated on workstation # [id number]
--- NOTE | 2017-07-11 14:52 | Progress Note (SOAP) ---
Subjective Subjective/Events-last exam States that he is feeling ok. Still requiring high levels of vapotherm. BM today. Tolerating PO diet. Has started PT and states that he has been moving around in bed. Review of Systems Date Seen by Provider: Jul 11, 2017 Time Seen by Provider: 13:45 Pulmonary: Cough, No Pleuritic Chest Pain Cardiovascular: No: Chest Pain, Palpitations Gastrointestinal: No: Diarrhea, Constipation Genitourinary: Hematuria Objective Exam Last Set of Vital Signs Vital Signs Date Time Temp Pulse Resp B/P (MAP) Pulse Ox O2 Delivery O2 Flow Rate FiO2 07/11/17 13:55 100 Vapotherm 20.00 70 07/11/17 13:00 107 07/11/17 12:00 116/72 07/11/17 10:00 18 07/11/17 08:30 97.5 Capillary Refill : Less Than 3 SecondsLess Than 3 Seconds I&O Intake and Output 07/12/17 00:00 Intake Total 540 ml Output Total 250 ml Balance 290 ml Intake Oral 200 ml IV Total 340 ml Output Urine Total 250 ml General: Alert, Oriented X3, Cooperative, No Acute Distress Neck: Supple Lungs: Other (+ diffuse crackles, mild increase work of breathing) Heart: Regular Rate, No Murmurs Abdomen: Normal Bowel Sounds, Soft, No Tenderness Extremities: No Edema, No Tenderness/Swelling Skin: No Rashes Neuro: Normal Speech, Strength at 5/5 X4 Ext, Sensation Intact, Cranial Nerves 3-12 NL Psych/Mental Status: Mental Status NL, Mood NL Results/Procedures Lab Laboratory Tests 07/11/17 04:54: White Blood Count 8.2, Red Blood Count 2.90L, Hemoglobin 8.2L, Hematocrit 26L, Mean Corpuscular Volume 91, Mean Corpuscular Hemoglobin 28, Mean Corpuscular Hemoglobin Concent 31L, Red Cell Distribution Width 15.7H, Platelet Count 165, Mean Platelet Volume 11.1H, Neutrophils (%) (Auto) 80H, Lymphocytes (%) (Auto) 8L, Monocytes (%) (Auto) 9, Eosinophils (%) (Auto) 4, Basophils (%) (Auto) 0, Neutrophils # (Auto) 6.5, Lymphocytes # (Auto) 0.6L, Monocytes # (Auto) 0.7, Eosinophils # (Auto) 0.3, Basophils # (Auto) 0.0, Activated Partial Thromboplast Time 46H, Sodium Level 141, Potassium Level 4.0, Chloride Level 103 , Carbon Dioxide Level 28, Anion Gap 10, Blood Urea Nitrogen 29H, Creatinine 0.72, Estimat Glomerular Filtration Rate > 60, BUN/Creatinine Ratio 40, Glucose Level 98, Calcium Level 8.9, Phosphorus Level 3.7, Magnesium Level 1.5L, B-Type Natriuretic Peptide 110.1H Microbiology 07/07/17 Blood Culture - Preliminary, Resulted No growth 07/08/17 MRSA Screen - Final, Complete MRSA not isolated 07/07/17 Urine Culture - Final, Complete NO GROWTH Radiology Date of Exam: 07/04/17 PELVIS WITH RIGHT HIP 2-3VIEWS INDICATION: Fall. COMPARISON: None. EXAMINATION: AP view of the pelvis and two views of the right hip were obtained. FINDINGS: There is a nondisplaced intertrochanteric fracture of the proximal right femur. Alignment at the hip joints appears preserved. The left hip appears unremarkable. The sacroiliac joints appear unremarkable. Vascular calcifications are demonstrated. Long stent is seen within the right superficial femoral artery. IMPRESSION: Nondisplaced intra-articular fracture of the proximal right femur. Assessment/Plan Assessment/Plan Plan 67 yo M admitted for Right hip fracture Plan Right intertrochanteric hip fracture, POD#1 ORIF - Ortho consulted - Continued Pradaxa Acute on Chronic Hypoxic Respiratory Failure - Consult to Dr. Adan for assistance with Pulmonary management -O2 sats improved once started on BiPap 12/8 with FiO2 40%, will defer respiratory management to Dr. Adan - A/A nebs scheduled and PRN - Continue Vanc Hematuria - Will continue to monitor, CBC daily - Patient on oral anticoagulation Normocytic Anemia - Iron Panel pending CAD s/p CABG - Restart ASA PVD s/p Left toe amputation and R femoral stent h/o CVA: no residual Chronic Atrial Fibrillation in RVR this afternoon: Asymptomatic - Increased Cardizem 360CD, will continue to monitor - Restarted Pradaxa FEN: Heart healthy diet DVT PPX: Oral Anticoagulation Dispo: Continue ICU care for Acute on Chronic Respiratory failure Social: Patient planning to go to SNF in [place] at discharge, Consider LTAC if unable to wean Clinical Quality Measures DVT/VTE Risk/Contraindication: Risk Factor Score Per Nursin RFS Level Per Nursing on Admit: 4+=Very High GAULT,JJ R MD Jul 11, 2017 14:52
[2017-07-11] MEDS ORDERED: DILTIAZEM 120 MG (CARDIZEM CD) CAP PO ONE (17:00)
[2017-07-11] MEDS ORDERED: MAGNESIUM CITRATE 300 ML BTL ONE (18:57)
[2017-07-11] MEDS ORDERED: D5W IV SOLUTION (EXCEL) 250 ML IV ONE (20:37)
[2017-07-11] MEDS ORDERED: AMIODARONE 450 MG/9 ML (CORDARONE) VIAL IV ONE (20:37)
[2017-07-11] MEDS ORDERED: [UNRECOGNIZED DRUG - OTHER] IV ONE ×2 (21:00)
[2017-07-11 21:17] LABS: ABG BASE EXCESS 1.1 MMOL/L (-2.5-2.5); ABG HCO3 25 MMOL/L (23-27); ABG OXYGEN SATURATION 100 % (94-100); ABG PCO2 37 MMHG (35-45); ABG PH 7.45 (7.37-7.43); ABG PO2 169 MMHG (79-93)
[2017-07-11 21:18] LABS: ALLENS TEST POSITIVE; PATIENT TEMP 98.2
[2017-07-11] MEDS: LEVOFLOXACIN 750 MG TAB (LEVAQUIN) PO SCH (21:28)
[2017-07-11] MEDS: HYDROcodone/APAP 7.5 MG/325 MG (LORTAB, LORCET PLUS) TABLET PO PRN (21:29)
[2017-07-12] VITALS (29 sets, daily range): BP systolic 98–151; BP diastolic 69–89
[2017-07-12] MEDS: AMIODARONE 450 MG/D5W 250 ML (EXCEL) IV SCH ×4 (00:30→08:51)
[2017-07-12] MEDS: VANCOMYCIN 1 GM/NS 250 ML IVPB IV SCH ×4 (00:35→14:51)
[2017-07-12] MEDS: morphine ER 30 MG (MS CONTIN) TAB PO SCH ×2 (01:16→14:55)
[2017-07-12] MEDS: RT-ALBUTEROL/IPRATROPIUM 3 ML (DUONEB) VIAL INH SCH ×6 (02:44→21:49)
[2017-07-12 05:12] LABS: BASOPHILS % (AUTO) 0 % (0-10); EOSINOPHILS # (AUTO) 0.4 10^3/uL (0.0-0.3); EOSINOPHILS % (AUTO) 5 % (0-10); LYMPHOCYTES # (AUTO) 0.8 X 10^3 (1.0-4.0); LYMPHOCYTES % (AUTO) 10 % (12-44); MEAN CORPUSCULAR HEMOGLOBIN 28 PG (25-34); MEAN CORPUSCULAR HGB CONC 31 G/DL (32-36); MEAN CORPUSCULAR VOLUME 90 FL (80-99); MEAN PLATELET VOLUME 10.4 FL (7.4-10.4); MONOCYTES # (AUTO) 0.9 X 10^3 (0.0-1.0); MONOCYTES % (AUTO) 11 % (0-12); NEUTROPHILS # (AUTO) 6.1 X 10^3 (1.8-7.8); NEUTROPHILS % (AUTO) 74 % (42-75); PLATELET COUNT 189 10^3/uL (130-400); RED BLOOD COUNT 2.87 10^6/uL (4.35-5.85); RED CELL DISTRIBUTION WIDTH 15.6 % (10.0-14.5); WHITE BLOOD COUNT 8.3 10^3/uL (4.3-11.0)
[2017-07-12 05:41] LABS: ANION GAP 9 MMOL/L (5-14); BLOOD UREA NITROGEN 27 MG/DL (7-18); BUN/CREATININE RATIO 45; CALCIUM 8.6 MG/DL (8.5-10.1); CARBON DIOXIDE 27 MMOL/L (21-32); CHLORIDE 102 MMOL/L (98-107); GFR ESTIMATED > 60; GLUCOSE 94 MG/DL (70-105); MAGNESIUM 1.7 MG/DL (1.8-2.4); PHOSPHORUS 2.8 MG/DL (2.3-4.7); POTASSIUM 3.7 MMOL/L (3.6-5.0); SODIUM 138 MMOL/L (135-145)
[2017-07-12] MEDS: POTASSIUM CL 10MEQ/50ML IVPB 50 ML IV SCH (05:49)
[2017-07-12] MEDS: MAGNESIUM 1 GM/100 ML IVPB 100 ML IV SCH ×3 (05:49→08:59)
[2017-07-12] MEDS: KCL 20 MEQ TAB (K-DUR) PO SCH (05:50)
[2017-07-12] MEDS: PANTOPRAZOLE 20 MG TABLET (PROTONIX) PO SCH ×2 (06:00→08:53)
[2017-07-12] MEDS: CYCLOBENZAPRINE 10 MG (FLEXERIL) TAB PO SCH ×3 (08:53→20:48)
[2017-07-12] MEDS: GABAPENTIN 300 MG (NEURONTIN) CAP PO SCH ×3 (08:53→20:49)
[2017-07-12] MEDS: DABIGATRAN 150 MG (PRADAXA) CAPSULE PO SCH ×2 (08:54→20:49)
[2017-07-12] MEDS: DILTIAZEM 180 MG (CARDIZEM CD) CAP PO SCH (08:54)
--- NOTE | 2017-07-12 10:13 | Physical Therapy Daily Note ---
PT Daily Note-Current Subjective Pt reports (R) hip pain 3/10 on arrival. Pt is agreeable with plan to transfer from the bed to the chair. Pain Numeric Pain Scale: 3 Location: Right Location Body Site: Hip Pain Description: Ache, Dull Appearance Alert and oriented. Mental Status Attachments: Oxygen, Zayas Catheter, Other-See Comments, IV Cardiac and oxygen monitors. Transfers Functional [place] Measure 0=Not Assessed/NA 4=Minimal Assistance 1=Total Assistance 5=Supervision or Setup 2=Maximal Assistance 6=Modified [place] 3=Moderate Assistance 7=Complete IndependenceIRFPAI Quality Coding Scale 6 Independent with activity with or without an assistive device 5 Patient requires set up or clean up by helper. Patient completes activity by themselves 4 Supervision or touching assist (CGA). [place] provide cues , steadying assist 3 The helper provides less than half the effort to complete the activity 2 The helper provides more than half the effort to complete the activity 1 Dependent. The helper does all the effort to complete an activity 7 Patient refused to complete or attempt activity 9 The patient did not perform the activity before the current illness or injury 88 Not attempted due to Medical conditions or safety concerns Transfers (B, C, W/C) (FIM): 2 Scootin Rollin Supine to/from Sit: 2 Sit to/from Stand: 2 Bed to/from Chair: 2 Pt provides 15% assist with (B) LEs during transfer. Pt reminded of (R) toe touch weight bearing status prior to transfer. Weight Bearing Right Lower Extremity: Right Touch Toe Bearing Left Lower Extremity: Left Full Weight Bearing Exercises Seated Therapy Exercises: LE Protocol, Ankle pumps Seated Reps: 20 Assessment Pt transferred from the bed to the chair. Pt is able to sit (I) in the chair, and maintained 100% oxygen saturation while seated. PT Short Term Goals Short Term Goals Time Frame: Jul 25, 2017 Transfers (B,C,W/C) (FIM): 4 Gait (FIM): 3 Distance (FIM): 3=150 ft Gait Distance Comment: 100ft Gait Level of Assist: 3 Gait Assistive Device: FWW Stairs (FIM): 2 # of Steps: 1 Stairs Level of Assist: 2 PT Welcome Wagon Host/Hostess Goals Welcome Wagon Host/Hostess Goals PT Welcome Wagon Host/Hostess Goals Time Frame: Aug 08, 2017 Transfers (B,C,W/C) (FIM): 6 Gait (FIM): 6 Gait distance (FIM): 3=150 ft Distance: 200ft Gait Level of Assist: 6 Gait Assistive Device: FWW Stairs (FIM): 4 # of Steps: 4 Stairs Level Of Assist: 4 PT Plan Treatment/Plan Treatment Plan: Continue Plan of Care Treatment Plan: Bed Mobility, Concurrent Therapy, Education, Functional Activity Vasiliy, Functional Strength, Gait, Safety, Therapeutic Exercise, Transfers Treatment Duration: Aug 08, 2017 Frequency: 11 times per week Estimated Hrs Per Day: 1 hour per day Patient and/or Family Agrees t: Yes Time/GCodes Time In: 0950 Time Out: 1015 Total Billed Treatment Time: 25 Total Billed Treatment 1, fa 15, ex 10 MENDOZA ADRIAN PT Jul 12, 2017 10:13
--- NOTE | 2017-07-12 10:48 | Diagnostic Imaging Report ---
INDICATION: Pneumonia Portable chest shows normal heart size and vascularity. There is obstructive airway disease. There is right perihilar discoid atelectasis. There are mild interstitial infiltrates at the left lung base. There is no effusion. Taking different technique into account I believe there is no significant change from 07/11/17. IMPRESSION: Stable chest. Dictated by: Dictated on workstation # [id number]
--- NOTE | 2017-07-12 11:09 | Progress Note (SOAP) ---
Subjective Date Seen by Provider: Jul 12, 2017 Time Seen by Provider: 11:04 Subjective/Events-last exam Mr Mitch is POD #2 s/p ORIF right hip. He is sitting in chair and has little pain. He is on O2 via simple facemask. He is being closely watched and is in process of weaning from O2. He plans to go to SNF after dismissal. He has been working with PT. Review of Systems General: No Chills, No Night Sweats Pulmonary: Dyspnea, Cough Gastrointestinal: No: Nausea, Vomiting Genitourinary: Hematuria Musculoskeletal: leg pain Neurological: Weakness, No: Numbness, Change in speech, Confusion Objective Exam Vital Signs Date Time Temp Pulse Resp B/P (MAP) Pulse Ox O2 Delivery O2 Flow Rate FiO2 07/12/17 10:34 98 OxyMask 5.00 07/12/17 09:00 98.5 93 27 125/83 96 Nasal Cannula 3.00 07/12/17 07:11 85 23 100 30.00 07/12/17 07:00 89 07/12/17 06:00 84 21 111/71 100 NIV Bilevel 30.00 07/12/17 05:00 83 15 122/76 100 NIV Bilevel 30.00 07/12/17 04:56 86 23 98 30.00 07/12/17 04:00 80 11 121/71 96 NIV Bilevel 30.00 07/12/17 03:00 82 19 116/75 99 NIV Bilevel 30.00 07/12/17 02:45 80 8 105/69 100 NIV Bilevel 30.00 07/12/17 02:44 80 17 100 40.00 07/12/17 02:00 86 20 107/71 94 NIV Bilevel 50.00 07/12/17 01:00 84 07/12/17 01:00 84 9 110/74 100 NIV Bilevel 50.00 07/12/17 00:37 80 13 100 50.00 07/12/17 00:00 98.6 07/12/17 00:00 147 24 98/79 100 NIV Bilevel 50.00 07/11/17 23:00 122 15 120/87 100 NIV Bilevel 50.00 07/11/17 22:45 158 29 92/61 100 NIV Bilevel 50.00 07/11/17 22:30 154 25 96/78 92 NIV Bilevel 50.00 07/11/17 22:15 168 14 97/78 100 NIV Bilevel 50.00 07/11/17 22:12 152 20 100 65.00 07/11/17 22:00 160 17 109/83 100 NIV Bilevel 65.00 07/11/17 21:45 152 26 96/82 100 NIV Bilevel 65.00 07/11/17 21:30 161 29 122/93 100 NIV Bilevel 65.00 07/11/17 21:15 144 15 109/84 100 NIV Bilevel 65.00 07/11/17 21:00 149 27 97/82 100 NIV Bilevel 65.00 07/11/17 20:45 147 15 92/70 95 NIV Bilevel 65.00 07/11/17 20:30 156 18 91/72 99 NIV Bilevel 65.00 07/11/17 20:20 161 45 113/87 95 NIV Bilevel 65.00 07/11/17 20:20 137 20 100 65.00 07/11/17 20:15 156 28 113/87 96 Vapotherm 60.00 15.00 07/11/17 20:00 138 37 105/64 100 Vapotherm 60.00 15.00 07/11/17 20:00 98.1 07/11/17 20:00 NIV Bilevel 65 07/11/17 19:00 153 21 103/80 94 Vapotherm 60.00 15.00 07/11/17 19:00 153 07/11/17 18:39 96 Vapotherm 15.00 65 07/11/17 18:00 151 31 83/69 100 Vapotherm 60.00 15.00 07/11/17 17:00 128 29 95/79 Vapotherm 60.00 15.00 07/11/17 16:00 Vapotherm 15.00 60 07/11/17 16:00 118/77 93 Vapotherm 60.00 15.00 07/11/17 16:00 97.2 07/11/17 15:00 98 19 143/78 99 Vapotherm 60.00 15.00 07/11/17 14:00 105 26 123/84 100 Vapotherm 60.00 15.00 07/11/17 13:55 100 Vapotherm 20.00 70 07/11/17 13:00 107 07/11/17 13:00 104 109/78 100 Vapotherm 60.00 15.00 07/11/17 12:00 Vapotherm 15.00 60 07/11/17 12:00 98.0 07/11/17 12:00 105 116/72 95 Vapotherm 60.00 15.00 Capillary Refill : Less Than 3 SecondsLess Than 3 Seconds General Appearance: Mild Distress Gastrointestinal: other (bandage to RLE is clean, dry, minimal right LE pain, no groin pain) Neurologic/Psychiatric: Alert, Oriented x3 Results Lab Laboratory Tests 07/11/17 18:36: Hemoglobin 8.4L 07/11/17 21:09: Blood Gas Puncture Site LEFT RADIAL, Blood Gas Patient Temperature 98.2, Arterial Blood pH 7.45H, Arterial Blood Partial Pressure CO2 37, Arterial Blood Partial Pressure O2 169H, Arterial Blood HCO3 25, Arterial Blood Total CO2 26.0 , Arterial Blood Oxygen Saturation 100, Arterial Blood Base Excess 1.1, Willian Test POSITIVE, Blood Gas Ventilator Setting NO, Blood Gas Inspired Oxygen 65% BIPAP 07/12/17 04:50: Hemoglobin 8.0L, White Blood Count 8.3, Red Blood Count 2.87L, Hematocrit 26L, Mean Corpuscular Volume 90, Mean Corpuscular Hemoglobin 28, Mean Corpuscular Hemoglobin Concent 31L, Red Cell Distribution Width 15.6H, Platelet Count 189, Mean Platelet Volume 10.4, Neutrophils (%) (Auto) 74, Lymphocytes (%) (Auto) 10L , Monocytes (%) (Auto) 11, Eosinophils (%) (Auto) 5, Basophils (%) (Auto) 0, Neutrophils # (Auto) 6.1, Lymphocytes # (Auto) 0.8L, Monocytes # (Auto) 0.9, Eosinophils # (Auto) 0.4H, Basophils # (Auto) 0.0, Sodium Level 138, Potassium Level 3.7, Chloride Level 102, Carbon Dioxide Level 27, Anion Gap 9, Blood Urea Nitrogen 27H, Creatinine 0.60, Estimat Glomerular Filtration Rate > 60, BUN/ Creatinine Ratio 45, Glucose Level 94, Calcium Level 8.6, Phosphorus Level 2.9, Magnesium Level 1.7L, B-Type Natriuretic Peptide 130.1H Microbiology 07/07/17 Blood Culture - Preliminary, Resulted No growth 07/08/17 MRSA Screen - Final, Complete MRSA not isolated 07/07/17 Urine Culture - Final, Complete NO GROWTH Assessment/Plan Assessment/Plan Assess & Plan/Chief Complaint Assessment: POD #2 s/p right TFN hematuria, acute on chronic resp failure Plan: right hip stable WBAT to RLE, continue to work with PT plan is to transfer to snf when medically able will need to follow up with Dr Pedro in clinic for 2 week post op visit continue current care per pulmonolgy and IM dvt prophylaxis: has resumed pradaxa, scd pain control Clinical Quality Measures DVT/VTE Risk/Contraindication: Risk Factor Score Per Nursin RFS Level Per Nursing on Admit: 4+=Very High RADHA DOWD Jul 12, 2017 11:09
--- NOTE | 2017-07-12 13:14 | Progress Note (SOAP) ---
Subjective Subjective/Events-last exam States that he is feeling ok. Up to chair this AM. Weaning oxygen. tolerating PO diet. Still feeling weak. Geller draining reddish urine. States that pain is well controlled Yesterday afternoon was in A fib with RVR patient was w/o symptoms Review of Systems Date Seen by Provider: Jul 12, 2017 Time Seen by Provider: 09:00 Pulmonary: Dyspnea, Cough Cardiovascular: No: Chest Pain, Palpitations Objective Exam Last Set of Vital Signs Vital Signs Date Time Temp Pulse Resp B/P (MAP) Pulse Ox O2 Delivery O2 Flow Rate FiO2 07/12/17 12:00 58 21 130/81 97 Nasal Cannula 3.00 07/12/17 09:00 98.5 07/11/17 20:00 65 Capillary Refill : Less Than 3 SecondsLess Than 3 Seconds I&O Intake and Output 07/13/17 00:00 Intake Total 600 ml Output Total 650 ml Balance -50 ml Intake Oral 100 ml IV Total 500 ml Output Urine Total 650 ml General: Alert, Oriented X3, Cooperative, No Acute Distress Lungs: Other (diffuse crackles and end exp wheezing, mild increased work of breathing) Heart: Regular Rate, No Murmurs Abdomen: Normal Bowel Sounds, Soft, No Tenderness, No Masses Extremities: No Edema, No Tenderness/Swelling Psych/Mental Status: Mental Status NL, Mood NL Results/Procedures Lab Laboratory Tests 07/11/17 18:36: Hemoglobin 8.4L 07/11/17 21:09: Blood Gas Puncture Site LEFT RADIAL, Blood Gas Patient Temperature 98.2, Arterial Blood pH 7.45H, Arterial Blood Partial Pressure CO2 37, Arterial Blood Partial Pressure O2 169H, Arterial Blood HCO3 25, Arterial Blood Total CO2 26.0 , Arterial Blood Oxygen Saturation 100, Arterial Blood Base Excess 1.1, Willian Test POSITIVE, Blood Gas Ventilator Setting NO, Blood Gas Inspired Oxygen 65% BIPAP 07/12/17 04:50: Hemoglobin 8.0L, White Blood Count 8.3, Red Blood Count 2.87L, Hematocrit 26L, Mean Corpuscular Volume 90, Mean Corpuscular Hemoglobin 28, Mean Corpuscular Hemoglobin Concent 31L, Red Cell Distribution Width 15.6H, Platelet Count 189, Mean Platelet Volume 10.4, Neutrophils (%) (Auto) 74, Lymphocytes (%) (Auto) 10L , Monocytes (%) (Auto) 11, Eosinophils (%) (Auto) 5, Basophils (%) (Auto) 0, Neutrophils # (Auto) 6.1, Lymphocytes # (Auto) 0.8L, Monocytes # (Auto) 0.9, Eosinophils # (Auto) 0.4H, Basophils # (Auto) 0.0, Sodium Level 138, Potassium Level 3.7, Chloride Level 102, Carbon Dioxide Level 27, Anion Gap 9, Blood Urea Nitrogen 27H, Creatinine 0.60, Estimat Glomerular Filtration Rate > 60, BUN/ Creatinine Ratio 45, Glucose Level 94, Calcium Level 8.6, Phosphorus Level 2.9, Magnesium Level 1.7L, B-Type Natriuretic Peptide 130.1H Microbiology 07/07/17 Blood Culture - Preliminary, Resulted No growth 07/08/17 MRSA Screen - Final, Complete MRSA not isolated 07/07/17 Urine Culture - Final, Complete NO GROWTH Radiology Date of Exam: 07/04/17 PELVIS WITH RIGHT HIP 2-3VIEWS INDICATION: Fall. COMPARISON: None. EXAMINATION: AP view of the pelvis and two views of the right hip were obtained. FINDINGS: There is a nondisplaced intertrochanteric fracture of the proximal right femur. Alignment at the hip joints appears preserved. The left hip appears unremarkable. The sacroiliac joints appear unremarkable. Vascular calcifications are demonstrated. Long stent is seen within the right superficial femoral artery. IMPRESSION: Nondisplaced intra-articular fracture of the proximal right femur. Assessment/Plan Assessment/Plan Plan 67 yo M admitted for Right hip fracture Plan Right intertrochanteric hip fracture, POD#2 ORIF - Ortho consulted - Continued Pradaxa Acute on Chronic Hypoxic Respiratory Failure - Consult to Dr. Adan for assistance with Pulmonary management -O2 sats improved once started on BiPap 08/21 with FiO2 40%, will defer respiratory management to Dr. Adan - A/A nebs scheduled and PRN - Continue Vanc Hematuria - Will continue to monitor, CBC daily - Patient on oral anticoagulation - Patient would like to keep geller until tomorrow as he is worried about his ability to use urinal Normocytic Anemia - Iron Panel pending, will go ahead and give Venefer x3 doses, 07/12 dose 1 CAD s/p CABG - Restart ASA PVD s/p Left toe amputation and R femoral stent h/o CVA: no residual Chronic Atrial Fibrillation in RVR this afternoon: Asymptomatic - Increased Cardizem 360CD, will continue to monitor - Restarted Pradaxa - eICU placed patient on Amiodarone overnight FEN: Heart healthy diet DVT PPX: Oral Anticoagulation Dispo: Continue ICU care for Acute on Chronic Respiratory failure Social: Patient planning to go to SNF in [place] at discharge, Consider LTAC if unable to wean Clinical Quality Measures DVT/VTE Risk/Contraindication: Risk Factor Score Per Nursin RFS Level Per Nursing on Admit: 4+=Very High JJ CUMMINGS MD Jul 12, 2017 13:14
[2017-07-12] MEDS ORDERED: IRON SUCROSE INJECTION 300 MG in NS (IVPB) 250 ML IV SCH (13:15)
[2017-07-12] MEDS: NS IV 1000 ML 1,000 ML IV SCH (13:40)
[2017-07-12] MEDS: ADVAIR HFA 115/21 MCG INHALER 8 GM IH SCH (18:30)
[2017-07-12] MEDS: HYDROcodone/APAP 7.5 MG/325 MG (LORTAB, LORCET PLUS) TABLET PO PRN (20:49)
[2017-07-12] MEDS: ZOLPIDEM 5 MG (AMBIEN) TAB PO PRN (20:49)
[2017-07-13] VITALS (11 sets, daily range): BP systolic 106–151; BP diastolic 60–97
[2017-07-13] MEDS: VANCOMYCIN 1 GM/NS 250 ML IVPB IV SCH ×6 (00:50→17:00)
[2017-07-13] MEDS: morphine ER 30 MG (MS CONTIN) TAB PO SCH ×2 (00:50→14:09)
[2017-07-13] MEDS: RT-ALBUTEROL/IPRATROPIUM 3 ML (DUONEB) VIAL INH SCH ×6 (02:21→21:51)
[2017-07-13 05:49] LABS: BASOPHILS % (AUTO) 0 % (0-10); EOSINOPHILS # (AUTO) 0.3 10^3/uL (0.0-0.3); EOSINOPHILS % (AUTO) 3 % (0-10); LYMPHOCYTES # (AUTO) 0.8 X 10^3 (1.0-4.0); LYMPHOCYTES % (AUTO) 8 % (12-44); MEAN CORPUSCULAR HEMOGLOBIN 28 PG (25-34); MEAN CORPUSCULAR HGB CONC 31 G/DL (32-36); MEAN CORPUSCULAR VOLUME 90 FL (80-99); MEAN PLATELET VOLUME 10.9 FL (7.4-10.4); MONOCYTES # (AUTO) 0.8 X 10^3 (0.0-1.0); MONOCYTES % (AUTO) 8 % (0-12); NEUTROPHILS # (AUTO) 7.8 X 10^3 (1.8-7.8); NEUTROPHILS % (AUTO) 80 % (42-75); PLATELET COUNT 194 10^3/uL (130-400); RED BLOOD COUNT 2.79 10^6/uL (4.35-5.85); RED CELL DISTRIBUTION WIDTH 15.9 % (10.0-14.5); WHITE BLOOD COUNT 9.7 10^3/uL (4.3-11.0)
[2017-07-13] MEDS: POTASSIUM CL 10MEQ/50ML IVPB 50 ML IV SCH (06:00)
[2017-07-13 06:40] LABS: ANION GAP 12 MMOL/L (5-14); BLOOD UREA NITROGEN 21 MG/DL (7-18); BUN/CREATININE RATIO 37; CALCIUM 8.6 MG/DL (8.5-10.1); CARBON DIOXIDE 26 MMOL/L (21-32); CHLORIDE 103 MMOL/L (98-107); CREATININE SERUM 0.57 MG/DL (0.60-1.30); GFR ESTIMATED > 60; GLUCOSE 96 MG/DL (70-105); MAGNESIUM 1.6 MG/DL (1.8-2.4); PHOSPHORUS 3.1 MG/DL (2.3-4.7); POTASSIUM 3.3 MMOL/L (3.6-5.0); SODIUM 141 MMOL/L (135-145)
[2017-07-13 06:53] LABS: FERRITIN 125.7 ng/mL (25.0-300.0)
[2017-07-13 06:54] LABS: FERRITIN 119.9 ng/mL (25.0-300.0)
--- NOTE | 2017-07-13 07:02 | Pulmonary Progress Note ---
Subjective Time Seen by Provider: 07:06 Subjective/Events-last exam Pt is doing better. Will transfer to 4th floor. Exam Exam Vital Signs Date Time Temp Pulse Resp B/P (MAP) Pulse Ox O2 Delivery O2 Flow Rate FiO2 07/13/17 06:00 85 27 128/73 100 OxyMask 6.00 07/13/17 05:00 98.9 75 12 124/68 100 OxyMask 6.00 07/13/17 04:00 84 18 106/63 93 OxyMask 6.00 07/13/17 04:00 OxyMask 6.00 07/13/17 03:00 81 18 121/65 92 OxyMask 3.00 07/13/17 02:21 100 OxyMask 3.00 07/13/17 02:00 85 24 119/70 96 OxyMask 3.00 07/13/17 01:00 92 07/13/17 00:19 98.3 OxyMask 6.00 07/13/17 00:00 OxyMask 6.00 07/12/17 23:00 78 13 111/71 95 OxyMask 6.00 07/12/17 22:00 87 17 132/89 99 OxyMask 6.00 07/12/17 21:50 99 OxyMask 6.00 07/12/17 21:00 85 17 143/74 95 OxyMask 6.00 07/12/17 20:40 98.7 OxyMask 6.00 07/12/17 20:00 OxyMask 6.00 07/12/17 20:00 87 17 134/78 100 OxyMask 6.00 07/12/17 19:00 90 07/12/17 19:00 93 17 140/72 97 OxyMask 6.00 07/12/17 18:32 95 OxyMask 6.00 07/12/17 18:00 87 22 129/73 97 OxyMask 6.00 07/12/17 17:00 86 22 133/77 100 OxyMask 6.00 07/12/17 16:00 83 16 132/71 100 OxyMask 6.00 07/12/17 16:00 98.4 07/12/17 15:04 90 19 151/82 94 OxyMask 6.00 07/12/17 14:18 93 OxyMask 5.00 07/12/17 14:00 89 24 126/69 92 OxyMask 6.00 07/12/17 13:24 90 07/12/17 13:00 89 16 119/70 96 OxyMask 6.00 07/12/17 12:00 58 21 130/81 97 OxyMask 6.00 07/12/17 12:00 OxyMask 6.00 07/12/17 11:00 56 21 122/84 95 OxyMask 6.00 07/12/17 10:34 98 OxyMask 5.00 07/12/17 10:00 65 16 115/80 95 Nasal Cannula 3.00 07/12/17 09:00 98.5 93 27 125/83 96 Nasal Cannula 3.00 07/12/17 08:00 61 19 116/75 95 NIV Bilevel 30.00 07/12/17 08:00 Nasal Cannula 3.00 07/12/17 07:11 85 23 100 30.00 07/12/17 07:00 53 11 109/72 97 NIV Bilevel 30.00 07/12/17 07:00 89 General Appearance: Mild Distress HEENT: PERRL/EOMI, Normal ENT Inspection Neck: Full Range of Motion, Normal Inspection Respiratory: Accessory Muscle Use, Crackles, Decreased Breath Sounds, Rhonci Cardiovascular: Regular Rate, Rhythm Capillary Refill: Less Than 3 Seconds Peripheral Pulses: 2+ Dorsalis Pedis (R) Gastrointestinal: other (bandage to RLE is clean, dry, minimal right LE pain, no groin pain) Extremity: Non Tender, No Calf Tenderness, No Pedal Edema, No Calf Tenderness, No Pedal Edema, Other (right femur bandage clean and dry. bandage to left foot) Neurologic/Psychiatric: Alert, Oriented x3 Skin: Warm/Dry Lymphatic: No Adenopathy Results Lab Laboratory Tests 07/11/17 18:36 07/12/17 04:50 07/13/17 05:05 07/13/17 06:00 Assessment/Plan Assessment/Plan Right intertrochanteric hip fracture s/p repair -Ortho is following Acute on chronic respiratory failure -SVNs -Daily CXR and Labs -Titrate oxygen as tolerated Pneumonia Vancomycin , Levaquin -Alfaro culture MRSA wound infection HX of Afib - pt has been on Pradaxa currently on hold for surgery Hematuria -Consider consulting urology Pt is ok to go to floor. Continue to titrate Fi02 as tolerated. 232 Clinical Quality Measures DVT/VTE Risk/Contraindication: Risk Factor Score Per Nursin RFS Level Per Nursing on Admit: 4+=Very High IRENE VAZ DO Jul 13, 2017 07:02
[2017-07-13] MEDS: MAGNESIUM 1 GM/100 ML IVPB 100 ML IV SCH ×2 (07:06→09:43)
[2017-07-13] MEDS: PANTOPRAZOLE 20 MG TABLET (PROTONIX) PO SCH ×2 (07:07→09:29)
[2017-07-13] MEDS: KCL 20 MEQ TAB (K-DUR) PO SCH (07:07)
[2017-07-13] MEDS ORDERED: KCL 20 MEQ TAB (K-DUR) PO NR ×2 (07:15→09:15)
--- NOTE | 2017-07-13 08:47 | Progress Note (SOAP) ---
Subjective Subjective/Events-last exam Patient feeling better today. Still short of breath when he gets up in chair. Review of Systems Date Seen by Provider: Jul 13, 2017 Time Seen by Provider: 09:00 Pulmonary: Dyspnea Cardiovascular: No: Chest Pain Objective Exam Last Set of Vital Signs Vital Signs Date Time Temp Pulse Resp B/P (MAP) Pulse Ox O2 Delivery O2 Flow Rate FiO2 07/13/17 07:14 96 Nasal Cannula 3.00 07/13/17 07:04 79 07/13/17 06:00 27 128/73 07/13/17 05:00 98.9 07/11/17 20:00 65 Capillary Refill : Less Than 3 SecondsLess Than 3 Seconds I&O Intake and Output 07/14/17 00:00 Intake Total 150 ml Output Total 650 ml Balance -500 ml Intake Oral 150 ml Output Urine Total 650 ml General: Alert, Oriented X3, Cooperative, Mild Distress Lungs: Clear to Auscultation, Other (good effort, decreased air exchange in chelita bases) Heart: Regular Rate, Normal S1, Normal S2, No Murmurs, Gallops, Rubs Abdomen: Normal Bowel Sounds, Soft, No Tenderness Extremities: No Clubbing, No Cyanosis, No Edema Psych/Mental Status: Mental Status NL, Mood NL Results/Procedures Lab Laboratory Tests 07/13/17 05:05: White Blood Count 9.7, Red Blood Count 2.79L, Hemoglobin 7.9L, Hematocrit 25L, Mean Corpuscular Volume 90, Mean Corpuscular Hemoglobin 28, Mean Corpuscular Hemoglobin Concent 31L, Red Cell Distribution Width 15.9H, Platelet Count 194, Mean Platelet Volume 10.9H, Neutrophils (%) (Auto) 80H, Lymphocytes (%) (Auto) 8L, Monocytes (%) (Auto) 8, Eosinophils (%) (Auto) 3, Basophils (%) (Auto) 0, Neutrophils # (Auto) 7.8, Lymphocytes # (Auto) 0.8L, Monocytes # (Auto) 0.8, Eosinophils # (Auto) 0.3, Basophils # (Auto) 0.0 07/13/17 06:00: Sodium Level 141, Potassium Level 3.3L, Chloride Level 103, Carbon Dioxide Level 26, Anion Gap 12, Blood Urea Nitrogen 21H, Creatinine 0.57L, Estimat Glomerular Filtration Rate > 60, BUN/Creatinine Ratio 37, Glucose Level 96, Calcium Level 8.6, Phosphorus Level 3.1, Magnesium Level 1.6L, B-Type Natriuretic Peptide 171.4H Microbiology 07/07/17 Blood Culture - Final, Complete No growth 07/08/17 MRSA Screen - Final, Complete MRSA not isolated 07/07/17 Urine Culture - Final, Complete NO GROWTH Radiology Date of Exam: 07/04/17 PELVIS WITH RIGHT HIP 2-3VIEWS INDICATION: Fall. COMPARISON: None. EXAMINATION: AP view of the pelvis and two views of the right hip were obtained. FINDINGS: There is a nondisplaced intertrochanteric fracture of the proximal right femur. Alignment at the hip joints appears preserved. The left hip appears unremarkable. The sacroiliac joints appear unremarkable. Vascular calcifications are demonstrated. Long stent is seen within the right superficial femoral artery. IMPRESSION: Nondisplaced intra-articular fracture of the proximal right femur. Assessment/Plan Assessment/Plan Plan 67 yo M admitted for Right hip fracture Plan Right intertrochanteric hip fracture - Ortho consulted - Continued Pradaxa 07/13 - he is receiving therapy but has continued to have a high oxygen requirement. Will DC to floor today and start looking at options for discharge. Acute on Chronic Hypoxic Respiratory Failure - Consult to Dr. Adan for assistance with Pulmonary management -O2 sats improved once started on BiPap 08/21 with FiO2 40%, will defer respiratory management to Dr. dAan - A/A nebs scheduled and PRN - Continue Vanc 07/13 - have weaned to nasal cannula, will txf to floor, continue abx for now. Hematuria - Will continue to monitor, CBC daily - Patient on oral anticoagulation - Patient would like to keep geller until tomorrow as he is worried about his ability to use urinal 07/13 - likely due to blood thinner, will watch, if does not improve in next 24- 48h, will consult urology Normocytic Anemia - Iron Panel pending, will go ahead and give Venefer x3 doses, 07/12 dose 1 07/13 - Receiving venefer CAD s/p CABG - Restart ASA PVD s/p Left toe amputation and R femoral stent h/o CVA: no residual Chronic Atrial Fibrillation in RVR this afternoon: Asymptomatic - Increased Cardizem 360CD, will continue to monitor - Restarted Pradaxa - eICU placed patient on Amiodarone overnight 07/13 - change amiodarone drip to PO FEN: Heart healthy diet DVT PPX: Oral Anticoagulation Dispo: Continue ICU care for Acute on Chronic Respiratory failure Social: Patient planning to go to SNF in [place] at discharge, Consider LTAC if unable to wean Clinical Quality Measures DVT/VTE Risk/Contraindication: Risk Factor Score Per Nursin RFS Level Per Nursing on Admit: 4+=Very High ELIZABETH DALTON MD Jul 13, 2017 08:47
--- NOTE | 2017-07-13 09:27 | Diagnostic Imaging Report ---
INDICATION: Pneumonia, followup exam. ICU care management. COMPARISON STUDY: Chest from yesterday. FINDINGS: COPD changes are again identified with right middle lobe collapse. The bibasilar infiltrates are stable. The heart size and vascularity are normal. A frontal view of the chest only was obtained. IMPRESSION: There has been no significant change. Dictated by: Dictated on workstation # [id number]
[2017-07-13] MEDS: CYCLOBENZAPRINE 10 MG (FLEXERIL) TAB PO SCH ×3 (09:28→20:38)
[2017-07-13] MEDS: DILTIAZEM 180 MG (CARDIZEM CD) CAP PO SCH (09:29)
[2017-07-13] MEDS: GABAPENTIN 300 MG (NEURONTIN) CAP PO SCH ×3 (09:29→20:38)
[2017-07-13] MEDS: DABIGATRAN 150 MG (PRADAXA) CAPSULE PO SCH ×2 (09:29→20:39)
[2017-07-13] MEDS: ADVAIR HFA 115/21 MCG INHALER 8 GM IH SCH ×2 (10:41→21:50)
--- NOTE | 2017-07-13 12:01 | Physical Therapy Daily Note ---
PT Daily Note-Current Subjective Patient is seated in W/C ready to be transferred from ICU to 4th floor. Patient has TTWB status and blood is observed in his urine. Patient is transferred to 4th floor. Pain Numeric Pain Scale: 0-No Pain Location: No Pain Reported Appearance Patient appears healthy. Mental Status Patient Orientation: Normal For Age Attachments: Oxygen, Zayas Catheter 4.0 L of O2 Transfers Functional [place] Measure 0=Not Assessed/NA 4=Minimal Assistance 1=Total Assistance 5=Supervision or Setup 2=Maximal Assistance 6=Modified [place] 3=Moderate Assistance 7=Complete IndependenceIRFPAI Quality Coding Scale 6 Independent with activity with or without an assistive device 5 Patient requires set up or clean up by helper. Patient completes activity by themselves 4 Supervision or touching assist (CGA). Roxana provide cues , steadying assist 3 The helper provides less than half the effort to complete the activity 2 The helper provides more than half the effort to complete the activity 1 Dependent. The helper does all the effort to complete an activity 7 Patient refused to complete or attempt activity 9 The patient did not perform the activity before the current illness or injury 88 Not attempted due to Medical conditions or safety concerns Transfers (B, C, W/C) (FIM): 2 Scootin Supine to/from Sit: 2 Sit to/from Stand: 2 Patient requires maximum assistance from PT with transferring from sit to stand due to weakness and TTWB status on his R LE. Weight Bearing Right Lower Extremity: Right Touch Toe Bearing Left Lower Extremity: Left Full Weight Bearing Assessment Current Status: Fair Progress Patient is currently limited by TTWB status on R LE. PT interventions will be to improve strength, muscular endurance, and ROM of the R LE per pain tolerance and hip precautions. PT Short Term Goals Short Term Goals Time Frame: Jul 25, 2017 Transfers (B,C,W/C) (FIM): 4 Gait (FIM): 3 Distance (FIM): 3=150 ft Gait Distance Comment: 100ft Gait Level of Assist: 3 Gait Assistive Device: FWW Stairs (FIM): 2 # of Steps: 1 Stairs Level of Assist: 2 PT Repairer And Checker Goals Repairer And Checker Goals PT Residential Goals Time Frame: Aug 08, 2017 Transfers (B,C,W/C) (FIM): 6 Gait (FIM): 6 Gait distance (FIM): 3=150 ft Distance: 200ft Gait Level of Assist: 6 Gait Assistive Device: FWW Stairs (FIM): 4 # of Steps: 4 Stairs Level Of Assist: 4 PT Plan Problem List Problem List: Activity Tolerance, Functional Strength, Safety, Balance, Gait, Bed Mobility, ROM Treatment/Plan Treatment Plan: Continue Plan of Care Treatment Plan: Bed Mobility, Concurrent Therapy, Education, Functional Activity Vasiliy, Functional Strength, Gait, Safety, Therapeutic Exercise, Transfers Treatment Duration: Aug 08, 2017 Frequency: 11 times per week Estimated Hrs Per Day: 1 hour per day Patient and/or Family Agrees t: Yes Time/GCodes Time In: 1105 Time Out: 1120 Total Billed Treatment Time: 15 Total Billed Treatment 1 visit FA 15 min GREGORIO MONTGOMERY PT Jul 13, 2017 12:01
--- NOTE | 2017-07-13 15:28 | Physical Therapy Daily Note ---
PT Daily Note-Current Subjective Patient is in bed upon PT entering. He states he is not feeling any better now than he was this a.m. Pain Numeric Pain Scale: 5-Moderate Pain Location: Right Location Body Site: Hip Pain Description: Ache Comment: Post surgical soreness Appearance Patient appears healthy. Mental Status Patient Orientation: Normal For Age Attachments: SCD's, Zayas Catheter, IV Transfers Functional [place] Measure 0=Not Assessed/NA 4=Minimal Assistance 1=Total Assistance 5=Supervision or Setup 2=Maximal Assistance 6=Modified [place] 3=Moderate Assistance 7=Complete IndependenceIRFPAI Quality Coding Scale 6 Independent with activity with or without an assistive device 5 Patient requires set up or clean up by helper. Patient completes activity by themselves 4 Supervision or touching assist (CGA). [place] provide cues , steadying assist 3 The helper provides less than half the effort to complete the activity 2 The helper provides more than half the effort to complete the activity 1 Dependent. The helper does all the effort to complete an activity 7 Patient refused to complete or attempt activity 9 The patient did not perform the activity before the current illness or injury 88 Not attempted due to Medical conditions or safety concerns Patient remained supine in his bed for the treatment. Weight Bearing Right Lower Extremity: Right Touch Toe Bearing Left Lower Extremity: Left Full Weight Bearing Exercises Supine Ex: Ankle pumps (bilateral), Quad Set (bilateral), Heel Slides ( bilateral), Short Arc Quads (bilateral), Straight leg raise (bilateral) Supine Reps: 15 Assessment Current Status: Good Progress Patient is currently limited by TTWB status as well as complaints of burning in his left foot. PT will progress exercises as patient current status improves. PT Short Term Goals Short Term Goals Time Frame: Jul 25, 2017 Transfers (B,C,W/C) (FIM): 4 Gait (FIM): 3 Distance (FIM): 3=150 ft Gait Distance Comment: 100ft Gait Level of Assist: 3 Gait Assistive Device: FWW Stairs (FIM): 2 # of Steps: 1 Stairs Level of Assist: 2 PT Jail Goals Jail Goals PT Jail Goals Time Frame: Aug 08, 2017 Transfers (B,C,W/C) (FIM): 6 Gait (FIM): 6 Gait distance (FIM): 3=150 ft Distance: 200ft Gait Level of Assist: 6 Gait Assistive Device: FWW Stairs (FIM): 4 # of Steps: 4 Stairs Level Of Assist: 4 PT Plan Problem List Problem List: Activity Tolerance, Functional Strength, Safety, Balance, Gait, ROM Treatment/Plan Treatment Plan: Continue Plan of Care Treatment Plan: Bed Mobility, Concurrent Therapy, Education, Functional Activity Vasiliy, Functional Strength, Gait, Safety, Therapeutic Exercise, Transfers Treatment Duration: Aug 08, 2017 Frequency: 11 times per week Estimated Hrs Per Day: 1 hour per day Patient and/or Family Agrees t: Yes Time/GCodes Time In: 1436 Time Out: 1451 Total Billed Treatment Time: 15 Total Billed Treatment 1 visit Ex 15 min GREGORIO MONTGOMERY PT Jul 13, 2017 15:27
--- NOTE | 2017-07-13 16:16 | Occupational Ther Daily Note ---
OT Current Status-Daily Note Subjective Pt seen in room, up in bed, agreeable to OT. Had moved to medical floor from ICU today. Pt reported increased discomfort in L foot. Appearance Alert, cooperative Mental Status/Objective Functional [place] Measure 0=Not Assessed/NA 4=Minimal Assistance 1=Total Assistance 5=Supervision or Setup 2=Maximal Assistance 6=Modified [place] 3=Moderate Assistance 7=Complete [place] Other Treatment Pt did 11 reps of three different bilat UE exercises to help strengthen arms for ADLs and to increase activity tolerance. Pt required recovery periods after exercises and may break them into two sets of 5 or 6, with resting in between. pt off vapotherm and on O2 5L/min. Pt encouraged to do one of the exercises on his own this evening. pt left up in bed, all needs met, daughter visiting. Education OT Patient Education: Energy conservation, Purpose of tx/functional activities , Reviewed precautions Teaching Recipient: Patient Teaching Methods: Demonstration, Discussion Response to Teaching: Verbalize Understanding, Return Demonstration, Reinforcement Needed OT Short Term Goals Short Term Goals Transfers (B,C,W/C) (FIM): 4 1=Demonstrate adherence to instructed precautions during ADL tasks. 2=Patient will verbalize/demonstrate understanding of assistive devices/ modifications for ADL. 3=Patient will improve strength/tolerance for activity to enable patient to perform ADL's. OT Mcfp Goals Acid Purification Equipment Operator Goals Time Frame: Jul 17, 2017 Eating (FIM): 6 Grooming(FIM): 5 Bathing(FIM): 4 Upper Body Dressing(FIM): 5 Lower Body Dressing(FIM): 4 Toileting(FIM): 3 Toilet/Commode Transfer(FIM): 3 Shower Transfer(FIM): 4 1=Demonstrate adherence to instructed precautions during ADL tasks. 2=Patient will verbalize/demonstrate understanding of assistive devices/ modifications for ADL. 3=Patient will improve strength/tolerance for activity to enable patient to perform ADL's. OT Education/Plan Problem List/Assessment Pt would benefit from skilled OT to increase his independence in basic self care and to decrease caregiver burden Discharge Recommendations Plan/Recommendations: Continue POC Treatment Plan/Plan of Care Patient would benefit from OT for education, treatment and training to promote independence in ADL's, mobility, safety and/or upper extremity function for ADL' s. Plan of Care: ADL Retraining, Functional Mobility, UE Funct Exercise/Act Treatment Duration: Jul 17, 2017 Frequency: 5 times per week Estimated Hrs Per Day: .5 hour per day Agreement: Yes Rehab Potential: Fair Time/GCodes Start Time: 15:50 Stop Time: 16:05 Total Time Billed (hr/min): 15 Billed Treatment Time visit, 15 minutes exercise GARIMA TAVERA OT Jul 13, 2017 16:16
[2017-07-13] MEDS: ZOLPIDEM 5 MG (AMBIEN) TAB PO PRN (20:41)
[2017-07-13] MEDS: HYDROcodone/APAP 7.5 MG/325 MG (LORTAB, LORCET PLUS) TABLET PO PRN (23:29)
[2017-07-14] VITALS (7 sets, daily range): BP systolic 129–147; BP diastolic 60–74
[2017-07-14] MEDS ORDERED: morphine INJ 4 MG/ML 1 ML (VIAL/SYRINGE) ONE (00:28)
[2017-07-14] MEDS ORDERED: morphine INJ 10 MG/ML 1ML (SYR OR VIAL) IVP ONE (00:30)
[2017-07-14] MEDS ORDERED: VANCOMYCIN INJECTION 1,000 MG in NS (IVPB) 250 ML IV SCH (00:30)
[2017-07-14] MEDS ORDERED: RT-ALBUTEROL HFA (VENTOLIN) PER PUFF IH PRN (00:30)
[2017-07-14] MEDS: RT-ALBUTEROL/IPRATROPIUM 3 ML (DUONEB) VIAL INH SCH ×6 (02:00→22:16)
[2017-07-14] MEDS: morphine ER 30 MG (MS CONTIN) TAB PO SCH ×2 (02:01→13:12)
[2017-07-14] MEDS: VANCOMYCIN 1 GM/NS 250 ML IVPB IV SCH ×2 (04:33)
[2017-07-14] MEDS ORDERED: KCL 10 MEQ TAB (MICRO K) PO NR (08:00)
[2017-07-14] MEDS ORDERED: FUROSEMIDE 40 MG/4 ML INJ (LASIX) IVP NR (08:00)
--- NOTE | 2017-07-14 08:10 | Pulmonary Progress Note ---
Subjective Time Seen by Provider: 08:03 Subjective/Events-last exam PT is doing better and feels improved. Exam Exam Vital Signs Date Time Temp Pulse Resp B/P (MAP) Pulse Ox O2 Delivery O2 Flow Rate FiO2 07/14/17 06:49 99 High Flow N/C 12.00 07/14/17 04:43 99.1 94 18 143/63 97 High Flow N/C 10.00 07/14/17 00:59 99.0 99 22 138/74 93 High Flow N/C 10.00 07/13/17 22:02 123 31 94 30.00 07/13/17 21:52 91 High Flow N/C 10.00 07/13/17 21:00 98.7 99 18 151/72 95 NIV Bilevel 07/13/17 19:50 Nasal Cannula 10.00 07/13/17 17:03 91 High Flow N/C 10.00 07/13/17 17:03 90 91 07/13/17 16:59 98.2 101 20 130/60 90 OxyMask 6.00 07/13/17 15:38 Nasal Cannula 5.00 07/13/17 11:54 Nasal Cannula 3.00 07/13/17 11:20 98.5 101 20 142/73 95 OxyMask 6.00 07/13/17 11:00 104 20 94 Nasal Cannula 3.00 07/13/17 10:48 90 Nasal Cannula 3.00 07/13/17 10:00 104 23 94 Nasal Cannula 3.00 07/13/17 09:00 95 17 124/75 93 Nasal Cannula 3.00 07/13/17 08:00 Nasal Cannula 3.00 07/13/17 08:00 79 27 133/97 91 Nasal Cannula 3.00 07/13/17 08:00 97.3 Nasal Cannula 3.00 General Appearance: No Apparent Distress, WD/WN HEENT: PERRL/EOMI, Normal ENT Inspection Neck: Full Range of Motion, Normal Inspection Respiratory: Accessory Muscle Use, Crackles, Decreased Breath Sounds, Rhonci Cardiovascular: Regular Rate, Rhythm Capillary Refill: Less Than 3 Seconds Peripheral Pulses: 2+ Dorsalis Pedis (R) Gastrointestinal: other (bandage to RLE is clean, dry, minimal right LE pain, no groin pain) Extremity: Non Tender, No Calf Tenderness, No Pedal Edema, No Calf Tenderness, No Pedal Edema, Other (right femur bandage clean and dry. bandage to left foot) Neurologic/Psychiatric: Alert, Oriented x3 Skin: Warm/Dry Lymphatic: No Adenopathy Results Lab Laboratory Tests 07/13/17 05:05 07/13/17 06:00 Assessment/Plan Assessment/Plan Right intertrochanteric hip fracture s/p repair -Ortho is following Acute on chronic respiratory failure pt is still requiring a lot of oxygen -SVNs --Repeat CXR -Titrate oxygen as tolerated -Will give lasix x 1 Pneumonia -pt is off Abx now -Post Vanco x 7days, Levaquin x 7days, Azithromycin x 5 days MRSA wound infection HX of Afib - cardiologly following Hematuria -Consider consulting urology Pt is ok to go to floor. Continue to titrate Fi02 as tolerated. 232 Clinical Quality Measures DVT/VTE Risk/Contraindication: Risk Factor Score Per Nursin RFS Level Per Nursing on Admit: 4+=Very High IRENE VAZ DO Jul 14, 2017 08:09
[2017-07-14] MEDS: CYCLOBENZAPRINE 10 MG (FLEXERIL) TAB PO SCH ×3 (08:39→20:38)
[2017-07-14] MEDS: GABAPENTIN 300 MG (NEURONTIN) CAP PO SCH ×3 (08:39→20:38)
[2017-07-14] MEDS: DILTIAZEM 180 MG (CARDIZEM CD) CAP PO SCH (08:40)
[2017-07-14] MEDS: DABIGATRAN 150 MG (PRADAXA) CAPSULE PO SCH ×2 (08:40→20:38)
[2017-07-14] MEDS: ASPIRIN E.C. 81 MG (ECOTRIN) TAB PO SCH (08:40)
[2017-07-14] MEDS ORDERED: DABIGATRAN 150 MG (PRADAXA) CAPSULE PO SCH (09:00)
--- NOTE | 2017-07-14 10:14 | Physical Therapy Daily Note ---
PT Daily Note-Current Subjective Patient states that he is doing okay today relative to his current situation. He reluctantly agrees to PT. Pain Numeric Pain Scale: 5-Moderate Pain Location: Right Location Body Site: Hip Pain Description: Ache Comment: Post surgical soreness Appearance Patient appears distressed with any positional changes or activity. Mental Status Patient Orientation: Normal For Age Attachments: Oxygen, Zayas Catheter, IV 8.0 L of O2 Transfers Functional [place] Measure 0=Not Assessed/NA 4=Minimal Assistance 1=Total Assistance 5=Supervision or Setup 2=Maximal Assistance 6=Modified [place] 3=Moderate Assistance 7=Complete IndependenceIRFPAI Quality Coding Scale 6 Independent with activity with or without an assistive device 5 Patient requires set up or clean up by helper. Patient completes activity by themselves 4 Supervision or touching assist (CGA). [place] provide cues , steadying assist 3 The helper provides less than half the effort to complete the activity 2 The helper provides more than half the effort to complete the activity 1 Dependent. The helper does all the effort to complete an activity 7 Patient refused to complete or attempt activity 9 The patient did not perform the activity before the current illness or injury 88 Not attempted due to Medical conditions or safety concerns Transfers (B, C, W/C) (FIM): 3 Scootin Patient was mod assist for moving in the bed. No other transfers were performed due to dropping O2 sats with positional change and very limited activity. Weight Bearing Right Lower Extremity: Right Touch Toe Bearing Left Lower Extremity: Left Full Weight Bearing Exercises Supine Ex: Ankle pumps (bilateral), Quad Set (bilateral), Straight leg raise ( bilateral; frequent resting due to SOB) Supine Reps: 15 Assessment Current Status: Fair Progress Patient is currently limited by pulmonary diagnoses. O2 sats consistently dropped into the 70s with very light exercise or movement in bed. Noticeable SOB was observed frequently throughout PT. He is also limited in ambulation due to his TTWB status. Exercise and ambulation progression with PT will occur as patient conditions and comorbidities improve. PT Short Term Goals Short Term Goals Time Frame: Jul 25, 2017 Transfers (B,C,W/C) (FIM): 4 Gait (FIM): 3 Distance (FIM): 3=150 ft Gait Distance Comment: 100ft Gait Level of Assist: 3 Gait Assistive Device: FWW Stairs (FIM): 2 # of Steps: 1 Stairs Level of Assist: 2 PT Senior Care Goals Colliery Clerk Goals PT Senior Care Goals Time Frame: Aug 08, 2017 Transfers (B,C,W/C) (FIM): 6 Gait (FIM): 6 Gait distance (FIM): 3=150 ft Distance: 200ft Gait Level of Assist: 6 Gait Assistive Device: FWW Stairs (FIM): 4 # of Steps: 4 Stairs Level Of Assist: 4 PT Plan Problem List Problem List: Activity Tolerance, Functional Strength, Safety, Balance, Gait, Bed Mobility, ROM Treatment/Plan Treatment Plan: Continue Plan of Care, Modify Plan, see comments (Patient has little tolerance for PT at this point. Patient will be seen once per day until status improves.) Treatment Plan: Bed Mobility, Concurrent Therapy, Education, Functional Activity Vasiliy, Functional Strength, Gait, Safety, Therapeutic Exercise, Transfers Treatment Duration: Aug 08, 2017 Frequency: 6 times per week Estimated Hrs Per Day: .25 hour per day Patient and/or Family Agrees t: Yes Time/GCodes Time In: 847 Time Out: 906 Total Billed Treatment Time: 19 Total Billed Treatment 1 visit EX 19 min GREGORIO MONTGOMERY PT Jul 14, 2017 10:14
[2017-07-14] MEDS: ADVAIR HFA 115/21 MCG INHALER 8 GM IH SCH ×2 (10:58→18:09)
--- NOTE | 2017-07-14 13:17 | Occupational Ther Daily Note ---
OT Current Status-Daily Note Subjective Pt seen in room, up in bed, agreeable to OT. A little confused. mentioned R leg hurt but did not rate or describe. Mental Status/Objective Functional [place] Measure 0=Not Assessed/NA 4=Minimal Assistance 1=Total Assistance 5=Supervision or Setup 2=Maximal Assistance 6=Modified [place] 3=Moderate Assistance 7=Complete [place] Other Treatment Pt did 10-11 reps bilat UE AROM exercise with no additional resistance. Pt educ on each exercise, with visual and verbal cues. Pt's O2 sats generally increased with the exercises, and stayed around 94-97%. Pt on 8L/min O2. When he lifted his L leg to get a pillow placed under it, sats dropped to upper 70s but quickly came back up with pursed lip breathing. Exercises to increase UE strength and activity tolerance, to help with ADLs. Pt was able to feed himself with setup but spilled tea, in bed. Pt left up in bed, 4 rails up, O2 in place, all needs met. Education OT Patient Education: Energy conservation, Exercise program, Progress toward Goal/Update tx plan, Purpose of tx/functional activities Teaching Recipient: Patient Teaching Methods: Demonstration, Discussion Response to Teaching: Verbalize Understanding, Return Demonstration, Reinforcement Needed OT Short Term Goals Short Term Goals Transfers (B,C,W/C) (FIM): 4 1=Demonstrate adherence to instructed precautions during ADL tasks. 2=Patient will verbalize/demonstrate understanding of assistive devices/ modifications for ADL. 3=Patient will improve strength/tolerance for activity to enable patient to perform ADL's. OT Care Home Goals Police Liaison Goals Time Frame: Jul 17, 2017 Eating (FIM): 6 Grooming(FIM): 5 Bathing(FIM): 4 Upper Body Dressing(FIM): 5 Lower Body Dressing(FIM): 4 Toileting(FIM): 3 Toilet/Commode Transfer(FIM): 3 Shower Transfer(FIM): 4 1=Demonstrate adherence to instructed precautions during ADL tasks. 2=Patient will verbalize/demonstrate understanding of assistive devices/ modifications for ADL. 3=Patient will improve strength/tolerance for activity to enable patient to perform ADL's. OT Education/Plan Problem List/Assessment Pt would benefit from skilled OT to increase his independence in basic self care and to decrease caregiver burden Discharge Recommendations Plan/Recommendations: Continue POC Treatment Plan/Plan of Care Patient would benefit from OT for education, treatment and training to promote independence in ADL's, mobility, safety and/or upper extremity function for ADL' s. Plan of Care: ADL Retraining, Functional Mobility, UE Funct Exercise/Act Treatment Duration: Jul 17, 2017 Frequency: 5 times per week Estimated Hrs Per Day: .5 hour per day Agreement: Yes Rehab Potential: Fair Time/GCodes Start Time: 12:35 Stop Time: 12:52 Total Time Billed (hr/min): 17 Billed Treatment Time visit, 17 minutes exercise GARIMA TAVERA OT Jul 14, 2017 13:17
[2017-07-15 00:10] VITALS: BP 127/60
[2017-07-15] MEDS: morphine ER 30 MG (MS CONTIN) TAB PO SCH ×2 (01:07→14:52)
[2017-07-15] MEDS: RT-ALBUTEROL/IPRATROPIUM 3 ML (DUONEB) VIAL INH SCH ×4 (02:14→14:54)
[2017-07-15] MEDS: PANTOPRAZOLE 20 MG TABLET (PROTONIX) PO SCH (06:07)
[2017-07-15] MEDS: ADVAIR HFA 115/21 MCG INHALER 8 GM IH SCH (06:55)
[2017-07-15 07:26] VITALS: BP 130/67
[2017-07-15] MEDS ORDERED: IRON SUCROSE INJECTION 300 MG in NS (IVPB) 250 ML IV SCH (07:30)
--- NOTE | 2017-07-15 09:23 | Pulmonary Progress Note ---
Exam Exam Vital Signs Date Time Temp Pulse Resp B/P (MAP) Pulse Ox O2 Delivery O2 Flow Rate FiO2 07/15/17 07:26 97.9 95 16 130/67 93 High Flow N/C 10.00 07/15/17 06:56 82 Nasal Cannula 3.00 07/15/17 02:17 95 Nasal Cannula 3.00 07/15/17 00:10 98.2 97 16 127/60 94 High Flow N/C 10.00 07/14/17 22:17 100 Nasal Cannula 3.00 07/14/17 20:05 100 Nasal Cannula 3.00 07/14/17 19:19 98.6 107 16 136/62 100 High Flow N/C 10.00 07/14/17 18:12 98 Nasal Cannula 3.00 07/14/17 15:57 98.7 105 16 129/60 93 High Flow N/C 10.00 07/14/17 14:48 99 Nasal Cannula 5.00 07/14/17 12:00 99.9 109 20 147/65 90 High Flow N/C 10.00 07/14/17 10:57 99 Nasal Cannula 9.00 General Appearance: No Apparent Distress, WD/WN HEENT: PERRL/EOMI, Normal ENT Inspection Neck: Full Range of Motion, Normal Inspection Respiratory: Accessory Muscle Use, Crackles, Decreased Breath Sounds, Rhonci Cardiovascular: Regular Rate, Rhythm Capillary Refill: Less Than 3 Seconds Peripheral Pulses: 2+ Dorsalis Pedis (R) Gastrointestinal: other (bandage to RLE is clean, dry, minimal right LE pain, no groin pain) Extremity: Non Tender, No Calf Tenderness, No Pedal Edema, No Calf Tenderness, No Pedal Edema, Other (right femur bandage clean and dry. bandage to left foot) Neurologic/Psychiatric: Alert, Oriented x3 Skin: Warm/Dry Lymphatic: No Adenopathy Assessment/Plan Assessment/Plan Right intertrochanteric hip fracture s/p repair -Ortho is following Acute on chronic respiratory failure pt is still requiring a lot of oxygen -SVNs -check CTA r/o PE Pneumonia -pt is off Abx now -Post Vanco x 7days, Levaquin x 7days, Azithromycin x 5 days Hypophos/hypomag/hypokalemia -replace MRSA wound infection HX of Afib - cardiologly following Hematuria -Consider consulting urology 233 Clinical Quality Measures DVT/VTE Risk/Contraindication: Risk Factor Score Per Nursin RFS Level Per Nursing on Admit: 4+=Very High IRENE VAZ DO Jul 15, 2017 09:23
[2017-07-15] MEDS ORDERED: POTASSIUM PHOSPHATE INJ 30 MM in NS (IVPB) 250 ML IV NR (09:30)
--- NOTE | 2017-07-15 09:48 | Physical Therapy Daily Note ---
PT Daily Note-Current Subjective Patient reports he is doing better this morning compared to yesterday. He agrees to PT. Pain Numeric Pain Scale: 5-Moderate Pain Location: Right Location Body Site: Hip Pain Description: Ache Comment: R hip pain with movement and activity Appearance Patient is not in any noticeable distress. Mental Status Patient Orientation: Normal For Age Attachments: Oxygen, Zayas Catheter 5.0 L of O2 Transfers Functional [place] Measure 0=Not Assessed/NA 4=Minimal Assistance 1=Total Assistance 5=Supervision or Setup 2=Maximal Assistance 6=Modified [place] 3=Moderate Assistance 7=Complete IndependenceIRFPAI Quality Coding Scale 6 Independent with activity with or without an assistive device 5 Patient requires set up or clean up by helper. Patient completes activity by themselves 4 Supervision or touching assist (CGA). [place] provide cues , steadying assist 3 The helper provides less than half the effort to complete the activity 2 The helper provides more than half the effort to complete the activity 1 Dependent. The helper does all the effort to complete an activity 7 Patient refused to complete or attempt activity 9 The patient did not perform the activity before the current illness or injury 88 Not attempted due to Medical conditions or safety concerns Transfers (B, C, W/C) (FIM): 2 Scootin Rollin Supine to/from Sit: 3 Sit to/from Stand: 2 Patient needs mod assist with all bed mobility. He required max assist with sit to stand from the PT and cueing per TTWB orders. Weight Bearing Right Lower Extremity: Right Touch Toe Bearing Left Lower Extremity: Left Full Weight Bearing Exercises Supine Ex: Ankle pumps (bilateral), Short Arc Quads (bilateral), Straight leg raise (bilateral; AAROM on R LE) Supine Reps: 15 Seated Therapy Exercises: Long arc quads Seated Reps: 15 (bilateral) Standing: Sit to Stand (max assist from PT) Standing Reps: 2 Assessment Current Status: Good Progress Patient was more willing to attempt therapeutic interventions including rising from sit to stand on this date. Patient had much less noticeable SOB with activity. PT will continue to progress exercise as patient pain tolerance and SOB improves. PT Short Term Goals Short Term Goals Time Frame: Jul 25, 2017 Transfers (B,C,W/C) (FIM): 4 Gait (FIM): 3 Distance (FIM): 3=150 ft Gait Distance Comment: 100ft Gait Level of Assist: 3 Gait Assistive Device: FWW Stairs (FIM): 2 # of Steps: 1 Stairs Level of Assist: 2 PT Store Facility Technician Goals Store Facility Technician Goals PT Store Facility Technician Goals Time Frame: Aug 08, 2017 Transfers (B,C,W/C) (FIM): 6 Gait (FIM): 6 Gait distance (FIM): 3=150 ft Distance: 200ft Gait Level of Assist: 6 Gait Assistive Device: FWW Stairs (FIM): 4 # of Steps: 4 Stairs Level Of Assist: 4 PT Plan Problem List Problem List: Activity Tolerance, Functional Strength, Safety, Balance, Gait, Bed Mobility Treatment/Plan Treatment Plan: Continue Plan of Care Treatment Plan: Bed Mobility, Concurrent Therapy, Education, Functional Activity Vasiliy, Functional Strength, Gait, Safety, Therapeutic Exercise, Transfers Treatment Duration: Aug 08, 2017 Frequency: 6 times per week Estimated Hrs Per Day: .25 hour per day Patient and/or Family Agrees t: Yes Time/GCodes Time In: 841 Time Out: 905 Total Billed Treatment Time: 24 Total Billed Treatment 1 visit FA 11 min EX 13 min GREGORIO MONTGOMERY PT Jul 15, 2017 09:48
[2017-07-15] MEDS: MAGNESIUM 1 GM/100 ML IVPB 100 ML IV SCH ×2 (10:31→11:14)
[2017-07-15] MEDS: ASPIRIN E.C. 81 MG (ECOTRIN) TAB PO SCH (10:41)
[2017-07-15] MEDS: CYCLOBENZAPRINE 10 MG (FLEXERIL) TAB PO SCH ×2 (10:41→14:52)
[2017-07-15] MEDS: DABIGATRAN 150 MG (PRADAXA) CAPSULE PO SCH (10:41)
[2017-07-15] MEDS: GABAPENTIN 300 MG (NEURONTIN) CAP PO SCH ×2 (10:41→14:52)
[2017-07-15] MEDS: DILTIAZEM 180 MG (CARDIZEM CD) CAP PO SCH (10:41)
--- NOTE | 2017-07-15 11:52 | Diagnostic Imaging Report ---
PROCEDURE: CT angiography of the chest with contrast. TECHNIQUE: Multiple contiguous axial images were obtained through the chest after uneventful bolus administration of intravenous contrast. Reconstructed CTA MIP acquisitions were also performed. INDICATION: Severe shortness of breath. COPD. Emphysema. 100 mL of Omnipaque 350 is administered intravenously. FINDINGS: There is advanced emphysema seen in the lungs with large bulla seen in the superior segment of the right lower lobe measuring 6.7 cm and in the right middle lobe measuring 10 cm. Also smaller multiple bulla are seen in the lung apices. There is significant consolidation involving the left lower lobe probably related to pneumonia. No lung mass or suspicious nodule is seen. There is chronic scarring and atelectasis in the right middle lobe similar to 07/08/2015. The pulmonary arteries are well opacified with no filling defects to suggest pulmonary embolism. The thoracic aorta is normal in caliber. No dissection. There is a short segment of 90% stenosis seen at the proximal aspect of the left common carotid artery with a stenotic segment measuring about 1 cm. This appears to be chronic. Bilateral pleural effusions small on the right and small to moderate on the left are seen. The osseous structures demonstrate mild degenerative changes. Sections in the upper abdomen demonstrate scattered hepatic cysts. There are minimally prominent hilar lymph nodes up to 1 cm in size probably reactive with no mediastinal mass seen otherwise. No axillary lymphadenopathy. IMPRESSION: 1. No PE or aortic dissection. 2. There is a chronic appearing 90% stenosis in the proximal aspect of the left common carotid artery. 3. Advanced bullous emphysema. 4. Significant consolidation in the left lower lobe probably related to pneumonia. 5. Bilateral effusions, small to moderate on the left and small on the right side. Dictated by: Dictated on workstation # [id number]
[2017-07-15 12:00] VITALS: BP 128/64
--- NOTE | 2017-07-15 12:24 | Discharge Instructions ---
Discharge Inst-[facility] Discharge Medications New, Converted or Re-Newed RX: Other Continued Medications: Albuterol Sulfate (Ventolin Hfa) 18 Gm Hfa.aer.ad 2 PUFF IH QID PRN for SHORTNESS OF BREATH Aspirin (Aspirin EC) 81 Mg Tablet.dr 81 MG PO DAILY, TAB Budesonide/Formoterol Fumarate (Symbicort 160-4.5 Mcg Inhaler) 10.2 Gm Hfa.aer.ad 2 PUFF IH BID Cyclobenzaprine HCl (Cyclobenzaprine HCl) 10 Mg Tablet 10 MG PO TID Dabigatran Etexilate Mesylate (Pradaxa) 150 Mg Capsule 150 MG PO BID, CAP Diltiazem HCl (Diltiazem ER) 240 Mg Capsule.er 240 MG PO DAILY Gabapentin (Gabapentin) 300 Mg Capsule 300 MG PO TID Hydrocodone/Acetaminophen (Hydrocodon-Acetaminoph 7.5-325) 1 Each Tablet 1 TAB PO Q4H PRN for PAIN-MODERATE Morphine Sulfate (Morphine Sulfate ER) 30 Mg Tablet.er 30 MG PO Q12H Omeprazole (Omeprazole) 20 Mg Capsule.dr 20 MG PO DAILY Zolpidem Tartrate (Zolpidem Tartrate) 10 Mg Tablet 10 MG PO HS Discontinued Medications: Doxycycline Monohydrate (Doxycycline Monohydrate) 100 Mg Capsule 100 MG PO BID for 10 Days FILLED 06/29/17 #20 FOR A 10 DAY THERAPY Patient Instructions Goal/Follow Up Appt: -PLEASE ARRANGE FOLLOW UP WITH [facility] UPON DC FROM [facility] Patient Instructions: -PER [facility] Return to The Hospital For: N/A Activity & Diet Discharge Diet: Regular Diet Activity as Tolerated: No (PER THERAPISTS/ORTHO) Copy Copies To 1: ELIZABETH DALTON MD, JULIE A MD Jul 15, 2017 12:24 pm
--- NOTE | 2017-07-15 13:05 | Occupational Ther Daily Note ---
OT Current Status-Daily Note Subjective Pt seen in room, up in recliner, agreeable to OT. No pain mentioned. Appearance Alert, cooperative. Mental Status/Objective Functional [place] Measure 0=Not Assessed/NA 4=Minimal Assistance 1=Total Assistance 5=Supervision or Setup 2=Maximal Assistance 6=Modified [place] 3=Moderate Assistance 7=Complete [place] Other Treatment Pt did 15-20 reps bilat UE exercise, working on strength and activity tolerance. O2 in place at 5L/min nc. O2 sats after one set of exercise around 97 % so nursing turned O2 down to 3L/min. Pt sats dropped to upper 70s and lower 80s while doing pursed lip breathing so O2 moved back up to 5L/min by nursing. Pt making slow progress. Pt left up in recliner, O2 in place, all needs met. Education OT Patient Education: Energy conservation, Exercise program, Purpose of tx/ functional activities Teaching Recipient: Patient Teaching Methods: Demonstration, Discussion Response to Teaching: Verbalize Understanding, Return Demonstration, Reinforcement Needed OT Short Term Goals Short Term Goals Transfers (B,C,W/C) (FIM): 4 1=Demonstrate adherence to instructed precautions during ADL tasks. 2=Patient will verbalize/demonstrate understanding of assistive devices/ modifications for ADL. 3=Patient will improve strength/tolerance for activity to enable patient to perform ADL's. OT Kersey Department Supervisor Goals Care Home Goals Time Frame: Jul 17, 2017 Eating (FIM): 6 Grooming(FIM): 5 Bathing(FIM): 4 Upper Body Dressing(FIM): 5 Lower Body Dressing(FIM): 4 Toileting(FIM): 3 Toilet/Commode Transfer(FIM): 3 Shower Transfer(FIM): 4 1=Demonstrate adherence to instructed precautions during ADL tasks. 2=Patient will verbalize/demonstrate understanding of assistive devices/ modifications for ADL. 3=Patient will improve strength/tolerance for activity to enable patient to perform ADL's. OT Education/Plan Problem List/Assessment Pt would benefit from skilled OT to increase his independence in basic self care and to decrease caregiver burden Discharge Recommendations Plan/Recommendations: Continue POC Treatment Plan/Plan of Care Patient would benefit from OT for education, treatment and training to promote independence in ADL's, mobility, safety and/or upper extremity function for ADL' s. Plan of Care: ADL Retraining, Functional Mobility, UE Funct Exercise/Act Treatment Duration: Jul 17, 2017 Frequency: 5 times per week Estimated Hrs Per Day: .5 hour per day Agreement: Yes Rehab Potential: Fair Time/GCodes Start Time: 11:41 Stop Time: 11:57 Total Time Billed (hr/min): 16 Billed Treatment Time visit, 16 minutes exercise GARIMA TAVERA OT Jul 15, 2017 13:05
[2017-07-15 18:50] VITALS: BP 128/64
--- NOTE | 2017-07-16 15:19 | Progress Note (SOAP) ---
Subjective Subjective/Events-last exam Patient states he does not want to go to an LTAC because he is afraid he will get "stuck" there. He wants to go to [facility] because they will allow patients to smoke 6 cigarettes per day. He does feel better but says that therapy wears him out. Review of Systems Date Seen by Provider: Jul 14, 2017 Time Seen by Provider: 10:00 Pulmonary: Dyspnea, Cough Cardiovascular: No: Chest Pain Objective Exam Last Set of Vital Signs Vital Signs Date Time Temp Pulse Resp B/P (MAP) Pulse Ox O2 Delivery O2 Flow Rate FiO2 07/15/17 18:50 103 20 128/64 95 Nasal Cannula 5.00 07/15/17 12:00 96.5 07/11/17 20:00 65 Capillary Refill : Less Than 3 SecondsLess Than 3 Seconds General: Alert, Oriented X3, Cooperative, No Acute Distress Lungs: Clear to Auscultation, Other (good effort, decreased in bases) Heart: Regular Rate, Normal S1, Normal S2, No Murmurs, Gallops, Rubs Abdomen: Normal Bowel Sounds, Soft, No Tenderness, No Hepatosplenomegaly, No Masses Extremities: No Clubbing, No Cyanosis, No Edema Psych/Mental Status: Mental Status NL, Mood NL Results/Procedures Lab Microbiology 07/07/17 Blood Culture - Final, Complete No growth 07/08/17 MRSA Screen - Final, Complete MRSA not isolated 07/07/17 Urine Culture - Final, Complete NO GROWTH Radiology Date of Exam: 07/04/17 PELVIS WITH RIGHT HIP 2-3VIEWS INDICATION: Fall. COMPARISON: None. EXAMINATION: AP view of the pelvis and two views of the right hip were obtained. FINDINGS: There is a nondisplaced intertrochanteric fracture of the proximal right femur. Alignment at the hip joints appears preserved. The left hip appears unremarkable. The sacroiliac joints appear unremarkable. Vascular calcifications are demonstrated. Long stent is seen within the right superficial femoral artery. IMPRESSION: Nondisplaced intra-articular fracture of the proximal right femur. Assessment/Plan Assessment/Plan Plan 67 yo M admitted for Right hip fracture Plan Right intertrochanteric hip fracture - Ortho consulted - Continued Pradaxa 07/13 - he is receiving therapy but has continued to have a high oxygen requirement. Will DC to floor today and start looking at options for discharge. 07/14 - exploring options; patient states he prefers going to [facility] as this will allow him to smoke and he can be assured he won't be stuck in a hospital. we will plan to have [facility] as well as [facility] evaluate him; we will have a family meeting to make final decision tomorrow. Acute on Chronic Hypoxic Respiratory Failure - Consult to Dr. Adan for assistance with Pulmonary management -O2 sats improved once started on BiPap 08/21 with FiO2 40%, will defer respiratory management to Dr. Adan - A/A nebs scheduled and PRN - Continue Vanc 07/13 - have weaned to nasal cannula, will txf to floor, continue abx for now. 07/14 - has completed 7 days of abx, conitnues to have O2 requirement and required vapotherm last night Hematuria - Will continue to monitor, CBC daily - Patient on oral anticoagulation - Patient would like to keep geller until tomorrow as he is worried about his ability to use urinal 07/13 - likely due to blood thinner, will watch, if does not improve in next 24- 48h, will consult urology 07/14 - much improved, will cont geller x 24h and then liekly DC Normocytic Anemia - Iron Panel pending, will go ahead and give Venefer x3 doses, 07/12 dose 1 07/13 - Receiving venefer 07/14 - stable CAD s/p CABG - Restart ASA PVD s/p Left toe amputation and R femoral stent h/o CVA: no residual Chronic Atrial Fibrillation in RVR this afternoon: Asymptomatic - Increased Cardizem 360CD, will continue to monitor - Restarted Pradaxa - eICU placed patient on Amiodarone overnight 07/13 - change amiodarone drip to PO FEN: Heart healthy diet DVT PPX: Oral Anticoagulation Dispo: Continue ICU care for Acute on Chronic Respiratory failure Social: Patient planning to go to SNF in [place] at discharge, Consider LTAC if unable to wean Clinical Quality Measures DVT/VTE Risk/Contraindication: Risk Factor Score Per Nursin RFS Level Per Nursing on Admit: 4+=Very High ELIZABETH DALTON MD Jul 16, 2017 15:19
--- NOTE | 2017-07-16 15:27 | Discharge Summary ---
Diagnosis/Chief Complaint Date of Admission Jul 04, 2017 at 17:36 Date of Discharge Jul 15, 2017 at 18:56 Admission Diagnosis Admission Diagnosis SEE BELOW Discharge Diagnosis Right intertrochanteric hip fracture - Ortho consulted - Continued Pradaxa 07/13 - he is receiving therapy but has continued to have a high oxygen requirement. Will DC to floor today and start looking at options for discharge. 07/14 - exploring options; patient states he prefers going to [facility] as this will allow him to smoke and he can be assured he won't be stuck in a hospital. we will plan to have [facility] as well as [facility] evaluate him; we will have a family meeting to make final decision tomorrow. DC - after family meeting, patient decided he would go to [facility]. He has been accepted there under the care of Dr Lockhart. Acute on Chronic Hypoxic Respiratory Failure - Consult to Dr. Adan for assistance with Pulmonary management -O2 sats improved once started on BiPap 08/21 with FiO2 40%, will defer respiratory management to Dr. Adan - A/A nebs scheduled and PRN - Continue Vanc 07/13 - have weaned to nasal cannula, will txf to floor, continue abx for now. 07/14 - has completed 7 days of abx, conitnues to have O2 requirement and required vapotherm last night DC - will continue to work on oxygen requirment while at [facility] Hematuria - Will continue to monitor, CBC daily - Patient on oral anticoagulation - Patient would like to keep geller until tomorrow as he is worried about his ability to use urinal 07/13 - likely due to blood thinner, will watch, if does not improve in next 24- 48h, will consult urology 07/14 - much improved, will cont geller x 24h and then liekly DC DC - can dc geller once at [facility], gross hematuria has resolved Normocytic Anemia - Iron Panel pending, will go ahead and give Venefer x3 doses, 07/12 dose 1 07/13 - Receiving venefer 07/14 - stable DC - stable CAD s/p CABG - Restart ASA PVD s/p Left toe amputation and R femoral stent h/o CVA: no residual Chronic Atrial Fibrillation in RVR this afternoon: Asymptomatic - Increased Cardizem 360CD, will continue to monitor - Restarted Pradaxa - eICU placed patient on Amiodarone overnight 07/13 - change amiodarone drip to PO DC - no further episodes of tachycardia off the amio drip. on diltiazem. Chief Complaint/HPI Chief Complaint/HPI 67 yo M that fell on thursday and presented to ER last night with right hip pain found to have fracture. States that he tripped over a cord when he fell. Since the fall he has been having increasing difficulties breathing. He turned up his oxygen at home and has been taking his PRN breathing treatments. This AM states that his breathing is more comfortable but he is still on increased oxygen requirement from his baseline. States that his pain is well controlled. Discharge Summary-Simple/Stand Consultations Discharge Physical Examination Allergies: Coded Allergies: No Known Drug Allergies (Unverified , 11/22/12) Vitals & I&Os Vital Sign - Last 12Hours Date Time Temp Pulse Resp B/P (MAP) Pulse Ox O2 Delivery O2 Flow Rate FiO2 07/15/17 18:50 103 20 128/64 95 Nasal Cannula 5.00 07/15/17 12:00 96.5 07/11/17 20:00 65 General Appearance: Alert, Oriented X3, Cooperative, No Acute Distress Respiratory: Clear to Auscultation, Normal Air Movement Cardiovascular: Regular Rate, Normal S1, Normal S2, No Murmurs, Gallops, Rubs Abdominal: Normal Bowel Sounds, Soft, No Tenderness, No Hepatosplenomegaly, No Masses Extremities: No Clubbing, No Cyanosis, No Edema Hospital Course See final discharge diagnosis. Radiology Reviewed Date of Exam: 07/04/17 PELVIS WITH RIGHT HIP 2-3VIEWS INDICATION: Fall. COMPARISON: None. EXAMINATION: AP view of the pelvis and two views of the right hip were obtained. FINDINGS: There is a nondisplaced intertrochanteric fracture of the proximal right femur. Alignment at the hip joints appears preserved. The left hip appears unremarkable. The sacroiliac joints appear unremarkable. Vascular calcifications are demonstrated. Long stent is seen within the right superficial femoral artery. IMPRESSION: Nondisplaced intra-articular fracture of the proximal right femur. Discharge Instructions to patient/family Please see electronic discharge instructions given to patient. Discharge Medications Reviewed and agree with Discharge Medication list on patient's Discharge Instruction sheet Clinical Quality Measures DVT/VTE Risk/Contraindication: Risk Factor Score Per Nursin RFS Level Per Nursing on Admit: 4+=Very High Copy Copies To 1: JEWELL ALBRECHT MD, JULIE A MD Jul 16, 2017 15:27
== END 2017-07-15 18:56 | DRG 480 ==
LOC: EDUNIT# 15:48 → ER 15:49 → 4TH 17:36 → ICU 07-10 14:52 → 4TH 07-13 11:20
PROVIDERS: ADMIT Family Medicine; ATTEND Family Medicine
PROC: 0QS606Z Reposition Right Upper Femur with Intramedullary Internal Fixation Device, Open Approach (ICD-10-PCS; principal; 2017-07-10 12:59)
DX: S72.141A Displaced intertrochanteric fracture of right femur, initial encounter for closed fracture (principal); J96.21 Acute and chronic respiratory failure with hypoxia; J18.9 Pneumonia, unspecified organism; J44.0 Chronic obstructive pulmonary disease with (acute) lower respiratory infection; F17.210 Nicotine dependence, cigarettes, uncomplicated; I48.2 Chronic atrial fibrillation; I70.201 Unspecified atherosclerosis of native arteries of extremities, right leg; I25.10 Atherosclerotic heart disease of native coronary artery without angina pectoris; S91.302A Unspecified open wound, left foot, initial encounter; K59.00 Constipation, unspecified; E83.42 Hypomagnesemia; E87.6 Hypokalemia; K21.9 Gastro-esophageal reflux disease without esophagitis; K44.9 Diaphragmatic hernia without obstruction or gangrene; Z79.01 Long term (current) use of anticoagulants; Z86.73 Personal history of transient ischemic attack (TIA), and cerebral infarction without residual deficits; Z95.820 Peripheral vascular angioplasty status with implants and grafts; Z95.1 Presence of aortocoronary bypass graft; Z99.81 Dependence on supplemental oxygen; Z89.422 Acquired absence of other left toe(s); Z87.11 Personal history of peptic ulcer disease; Z86.14 Personal history of Methicillin resistant Staphylococcus aureus infection; W18.09XA Striking against other object with subsequent fall, initial encounter; Y92.008 Other place in unspecified non-institutional (private) residence as the place of occurrence of the external cause
CPT/HCPCS: 36415; 71010; 71275; 80048; 80053; 80202; 81000; 82728; 82805; 83540; 83605; 83735; 83880; 84100; 85018; 85025; 85730; 86850; 86900; 86901; 87040; 87081; 87088; 93005; 94640; 94660; 94664; 94760; 96365; 96375